=== PATIENT | female | born 1980 | race Caucasian/White ===

== ENCOUNTER 2016-11-19 08:25 | Emergency (ER) | payer OTHER ==
--- NOTE | 2016-11-19 08:43 | ERPHSYRPT ---
- History of Present Illness Time Seen by Provider: 11/19/16 08:30 Source: patient Exam Limitations: clinical condition Patient Subjective Stated Complaint: PT STATES SHE INJURED RIGHT SHOULDER SEVERAL YEARS AGO AND STATES OVER THE PAST FEW WEEKS HER SHOULDER HAS HURT WORSE. PT ALSO C/O PAIN TO LEFT WRIST AFTER FALLING ON 11/06/16. Triage Nursing Assessment: PT PINK, WARM, DRY. PT AMBULATED INTO ER WITHOUT DIFFICULTY. PT SPEACH IMPAIRED, ANSWERING QUESTIONS APPROPRIATELY. PT HAS OLD BRUISING TO HAND. NO DEFORMITY OR BRUISING NOTED TO RIGHT SHOULDER. Physician History: PATIENT WITH HISTORY OF SCHIZOPHRENIA COMPLAINS OF RIGHT CHRONIC SHOULDER PAIN FOR YEARS, INCREASING PAIN DISCOMFORT THE PAST 2 WEEKS, WORSE UPON MOTION. PATIENT ALSO FELL AND INJURED HER LEFT WRIST AND HAND 2 WEEKS AGO, HAS PAIN WITH SWELLING OVER BACK OF LEFT HAND. DENIES ASSOCIATED HEAD, NECK OR BACK INJURY. Occurred: other (WEEKS AGO) Method of Injury: fell Quality: constant Severity of Pain-Max: moderate Severity of Pain-Current: moderate Extremities Pain Location: shoulder: right, wrist: left, hand: left Modifying Factors: Improves With: movement Associated Symptoms: none Allergies/Adverse Reactions: No Known Drug Allergies Allergy (Unverified 11/19/16 08:37) Home Medications: Alprazolam 1 mg [Xanax 1 mg] 1 mg PO QID 07/18/16 [History] Paliperidone Palmitate [Invega Sustenna] 117 mg IM UD 07/18/16 [History] Fluticasone/Vilanterol [Breo Ellipta 200-25 Mcg INH] 1 each IH DAILY 11/19/16 [ History] Trazodone HCl 150 mg PO HS 11/19/16 [History] Hx Tetanus, Diphtheria Vaccination/Date Given: Yes (UP TO DATE) Hx Influenza Vaccination/Date Given: No Hx Pneumococcal Vaccination/Date Given: No Immunizations Up to Date: Yes - Review of Systems Constitutional: No Fever, No Chills Respiratory: No Cough, No Dyspnea Cardiac: No Chest Pain, No Edema, No Syncope Abdominal/Gastrointestinal: No Abdominal Pain, No Nausea, No Vomiting, No Diarrhea Genitourinary Symptoms: No Dysuria Musculoskeletal: Injury, Joint Pain, Joint Swelling, No Back Pain, No Neck Pain Skin: No Rash Neurological: No Dizziness, No Focal Weakness, No Sensory Changes Psychological: No Symptoms Endocrine: No Symptoms All Other Systems: Reviewed and Negative - Past Medical History Pertinent Past Medical History: Yes Neurological History: Other Respiratory History: Asthma Psycho-Social History: Anxiety, Depression, Other Other Medical History: BORDERLINE PERSONALITY DISORDER, SCHIZOPHRENIA, HEAD TRAUMA - Past Surgical History Past Surgical History: Yes Female Surgical History: Tubal Ligation Other Surgical History: dental extration - Social History Smoking Status: Current every day smoker How long have you smoked: 18 Exposure to second hand smoke: No Drug Use: none Patient Lives Alone: No - Female History Hx Last Menstrual Period: MAY 2016 - Nursing Vital Signs Nursing Vital Signs: Initial Vital Signs Temperature 97.9 F Temperature Source Oral Pulse Rate 70 Respiratory Rate 18 Blood Pressure [] 140/90 Pain Intensity 6 - Physical Exam General Appearance: alert Abdominal Exam: No guarding Back Exam: No vertebral tenderness Shoulder Exam: normal inspection, limited ROM, pain (THERE IS NO CREPITUS, ECCHYMOSIS OR DEFORMITY, TENDERNESS MID RIGHT CLAVICLE, NO CREPITUS), soft tissue tenderness Elbow/Forearm Exam: non-tender (THERE IS OLD SEFT MUTULATON SCARS MID FOREARMS BILATERAL) Wrist Exam: limited ROM, pain, soft tissue tenderness (TENDERNESS LEFT VOLAR WRIST, NO ABRASIONS OR ECCHYMOSIS) Hand Exam: soft tissue tenderness, swelling (THERE IS TENDERNESS, MID TO DISTAL 2ND TO 5TH METACARPALS WITH ECCHYMOSIS YELLOW DISCOLORATION) Neuro/Tendon Exam: normal sensation, normal motor functions Mental Status Exam: alert, oriented x 3, cooperative Skin Exam: normal color, warm, dry SpO2 Interpretation: normal SpO2: 98 - Radiology Exams Right Clavicle X-ray Interpretation: Discussed w/ radiologist, Negative, No Fracture Right Shoulder X-ray Interpretation: Discussed w/ radiologist, Negative, No Fracture Left Wrist X-ray Interpretation: Discussed w/ radiologist, Negative, No Fracture Left Hand X-ray Interpretation: Discussed w/ radiologist, Negative, No Fracture Ordered Tests: Active Orders 24 hr Category Date Time Status Sling Application STAT Care 11/19/16 09:19 Active Splint STAT Care 11/19/16 09:20 Active CLAVICLE Stat Exams 11/19/16 08:35 Completed HAND (MINIMUM 3 VIEWS) Stat Exams 11/19/16 08:35 Completed SHOULDER Stat Exams 11/19/16 08:36 Completed WRIST (MIN 3 VIEWS) Stat Exams 11/19/16 08:35 Completed - Progress Progress: pain not gone completely Progress Note: 11/19/16 08:50 PATIENT PROVIDED RIGHT ARM SLING AND TORADOL 10MG ORALLY Counseled pt/family regarding: diagnosis, need for follow-up, rad results - Departure Time of Disposition: 09:25 Departure Disposition: Home Clinical Impression: CHRONIC RIGHT SHOULDER PAIN, ACUTE LEFT HAND/WRIST STRAIN Condition: Stable Critical Care Time: No Referrals: ZEE REYES [Primary Care Provider] - Additional Instructions: WEAR RIGHT ARM SLING AND LEFT WRIST VELCRO SPLINT FOR 1 WEEK. TORADOL 10MG EVERY 6 HOURS NEEDED FOR PAIN. CONSULT YOUR PRIMARY CARE PHYSICIAN FOR FOLLOWUP AND REVIEW OF XRAY FINDINGS. Prescriptions: Ketorolac Tromethamine [Toradol] 10 mg PO Q6H PRN PRN #20 tablet PRN Reason: Pain
[2016-11-19 09:07] VITALS: O2SAT 98
--- NOTE | 2016-11-19 09:17 | XRAY ---
Indication: Pain following fall. Comparison: None 3 views of the left hand obtained. No bony, articular, or soft tissue abnormalities.
--- NOTE | 2016-11-19 09:17 | XRAY ---
Indication: Pain following fall. Comparison: None 2 views of the right clavicle demonstrates mild AC degenerative arthropathy with heterotopic ossification. No other bony, articular, or soft tissue abnormalities.
--- NOTE | 2016-11-19 09:18 | XRAY ---
Indication: Pain following fall. Comparison: None 3 views of the left wrist obtained. No bony, articular, or soft tissue abnormalities.
--- NOTE | 2016-11-19 09:21 | XRAY ---
Indication: Pain following fall. Comparison: None 3 views of the right shoulder demonstrates mild AC degenerative arthropathy. No other bony, articular, or soft tissue abnormalities.
[2016-11-19 09:32] VITALS: BP 138/82; PULSE 74
== END 2016-11-19 09:31 | disposition home or self-care (01) ==
LOC: ED 08:25
DX: M25.511 Pain in right shoulder (principal); S63.502A Unspecified sprain of left wrist, initial encounter; S63.92XA Sprain of unspecified part of left wrist and hand, initial encounter; W19.XXXA Unspecified fall, initial encounter
CPT/HCPCS: 73000; 73030; 73110; 73130; 99283; L3908

== ENCOUNTER 2017-06-04 10:14 | Emergency (ER) | payer MEDICAID, OTHER ==
[2017-06-04 10:29] VITALS: O2SAT 96
[2017-06-04] MEDS ORDERED: Sodium Chloride 0.9% 1000 ML 1,000 ML IV STA (10:29)
[2017-06-04] MEDS ORDERED: Hydromorphone 1 mg/ml Ampule IV ONE (10:34)
[2017-06-04] MEDS ORDERED: Zofran 4 MG/2 ML VIAL IV ONE (10:34)
--- NOTE | 2017-06-04 10:38 | ERPHSYRPT ---
- History of Present Illness Time Seen by Provider: 06/04/17 10:24 Historian: patient Patient Subjective Stated Complaint: pt states she began having right lower abdomen pain. states she feels like the pain is coming from her right ovary. currently on period. pt also states she became dizzy this morning and vomited x1. Triage Nursing Assessment: pt pink, warm, moist. pt ambulated into ER without difficulty. abdomen obese. bowel sounds present in all 4 quads. Physician History: CC: RLQ abd pain Hx: 36 y/o patient of Dr Colón. She started normal menses and has hx of BTL. She has RLQ abd pain. Pain severe. Associated with nausea and a cold sweat. Normal urination. No fever or chills. Pain is sharp in nature. Timing/Duration: today Allergies/Adverse Reactions: No Known Drug Allergies Allergy (Unverified 06/04/17 10:29) Home Medications: Paliperidone Palmitate [Invega Sustenna] 117 mg IM UD 07/18/16 [History] Clonazepam [Klonopin] 1 mg PO TID 06/04/17 [History] Divalproex Sodium [Depakote] 1,000 mg PO DAILY 06/04/17 [History] Hx Tetanus, Diphtheria Vaccination/Date Given: Yes (up top date) Hx Influenza Vaccination/Date Given: Yes Hx Pneumococcal Vaccination/Date Given: No Immunizations Up to Date: Yes - Review of Systems Constitutional: Malaise, No Fever, No Chills Eyes: No Symptoms Ears, Nose, & Throat: No Symptoms Respiratory: No Cough Cardiac: No Chest Pain Abdominal/Gastrointestinal: Abdominal Pain, Nausea, No Vomiting, No Diarrhea Genitourinary Symptoms: Vaginal Bleeding (menses), No Skin: No Rash Neurological: No Headache All Other Systems: Reviewed and Negative - Past Medical History Pertinent Past Medical History: Yes Neurological History: Other Respiratory History: Asthma Psycho-Social History: Anxiety, Depression, Other Other Medical History: BORDERLINE PERSONALITY DISORDER, SCHIZOPHRENIA, HEAD TRAUMA - Past Surgical History Past Surgical History: Yes Female Surgical History: Tubal Ligation Other Surgical History: dental extration - Social History Smoking Status: Current every day smoker How long have you smoked: 20 Exposure to second hand smoke: No Drug Use: none Patient Lives Alone: No - Female History Hx Last Menstrual Period: now - Nursing Vital Signs Nursing Vital Signs: Initial Vital Signs Temperature 97.6 F 08/15/17 10:22 Pulse Rate 93 H 06/04/17 10:22 Respiratory Rate 20 06/04/17 10:22 Blood Pressure 154/96 06/04/17 10:22 O2 Sat by Pulse Oximetry 96 06/04/17 10:22 Pain Scale Pain Intensity 0 - Physical Exam General Appearance: alert, obese, other (pleasant lady) Eye Exam: PERRL/EOMI Ears, Nose, Throat Exam: moist mucous membranes Neck Exam: normal inspection, non-tender, supple Respiratory Exam: normal breath sounds Cardiovascular Exam: regular rate/rhythm Gastrointestinal/Abdomen Exam: soft, tenderness (RLQ) Extremity Exam: normal range of motion Neurologic Exam: alert, oriented x 3, cooperative, sensation nml, No motor deficits Skin Exam: warm, dry, No rash SpO2 Interpretation: normal SpO2: 96 Oxygen Delivery: Room Air - Course Nursing assessment & vital signs reviewed: Yes - CT Exams abd/pelvis CT Interpretation: Tele-radiologist Report, No appendicitis, Other (gallstone, no acute) Ordered Tests: Active Orders 24 hr Category Date Time Status Cath for Specimen-Straight STAT Care 06/04/17 10:29 Active IV Insertion STAT Care 06/04/17 10:29 Active Orthostatic Vital Signs STAT Care 06/04/17 10:31 Active ABDOMEN AND PELVIS W CONTRAST [CT] Stat Exams 06/04/17 10:32 Completed CBC W DIFF Stat Lab 06/04/17 10:35 Completed CMP Stat Lab 06/04/17 10:35 Completed HCG QUALITATIVE,SERUM Stat Lab 06/04/17 10:35 Completed UA W/RFX UR CULTURE Stat Lab 06/04/17 10:29 Completed VALPROIC ACID (DEPAKOTE) Stat Lab 06/04/17 10:35 Completed Medication Summary Discontinued Medications Generic Name Dose Route Start Last Admin Trade Name Freq PRN Reason Stop Dose Admin Hydromorphone HCl 1 mg 06/04/17 10:34 06/04/17 10:53 Hydromorphone 1 Mg/Ml Ampule IV 06/04/17 10:35 1 mg STAT ONE Administration Hydromorphone HCl Confirm 06/04/17 10:44 Hydromorphone 1 Mg/Ml Ampule Administered 06/04/17 10:45 Dose 1 mg .ROUTE .STK-MED ONE Sodium Chloride 1,000 mls @ 999 mls/hr 06/04/17 10:29 06/04/17 10:53 Sodium Chloride 0.9% 1000 Ml IV 06/04/17 11:29 999 mls/hr .Q1H1M STA Administration Sodium Chloride Confirm 06/04/17 10:44 Sodium Chloride 0.9% 1000 Ml Administered 06/04/17 10:45 Dose 1,000 mls @ ud .ROUTE .STK-MED ONE Ondansetron HCl 4 mg 06/04/17 10:34 06/04/17 10:53 Zofran 4 Mg/2 Ml Vial IV 06/04/17 10:35 4 mg STAT ONE Administration Ondansetron HCl Confirm 06/04/17 10:43 Zofran 4 Mg/2 Ml Vial Administered 06/04/17 10:44 Dose 4 mg .ROUTE .STK-MED ONE Lab/Rad Data: Laboratory Result Diagrams 06/04/17 10:35 06/04/17 10:35 Laboratory Results 06/04/17 06/04/17 06/04/17 Range/Units 10:35 10:35 10:35 WBC 14.3 H (4.0-10.5) K/mm3 RBC 4.90 (4.1-5.4) M/mm3 Hgb 13.4 (12.0-16.0) gm/dl Hct 43.3 (35-47) % MCV 88.4 (78-100) fl MCH 27.3 (26-32) pg MCHC 30.9 L (32-36) g/dl RDW 17.0 H (11.5-14.0) % Plt Count 392 (150-450) K/mm3 MPV 8.7 (6-9.5) fl Gran % 74.0 H (36.0-66.0) % Lymphocytes % 18.7 L (24.0-44.0) % Monocytes % 5.5 (0.0-12.0) % Eosinophils % 1.3 (0.00-5.0) % Basophils % 0.5 (0.0-0.4) % Basophils # 0.07 (0-0.4) Sodium 140 (136-145) mEq/L Potassium 3.4 L (3.5-5.1) mEq/L Chloride 105 (98-107) mEq/L Carbon Dioxide 25.1 (21-32) mEq/L Anion Gap 13.1 (5-15) MEQ/L BUN 9 (9-20) mg/dL Creatinine 0.90 (0.55-1.30) mg/dl Estimated GFR > 60 ML/MIN Glucose 150 H (70-110) MG/DL Calcium 9.0 (8.5-10.1) mg/dL Total Bilirubin 0.30 (0.2-1.0) mg/dL AST 37 (15-37) U/L ALT 63 (12-78) U/L Alkaline Phosphatase 122 H (46-116) U/L Serum Total Protein 7.3 (6.4-8.2) gm/dL Albumin 3.5 (3.4-5.0) g/dL Serum , Qual NEGATIVE (Negative) Ur Collection Type Urine Color (YELLOW) Urine Appearance (CLEAR) Urine pH (5-6) Ur Specific [place] (1.005-1.025) Urine Protein (Negative) Urine Ketones (NEGATIVE) Urine Blood (0-5) Fig[place]/ul Urine Nitrite (NEGATIVE) Urine Bilirubin (NEGATIVE) Urine Urobilinogen (0-1) mg/dL Ur Leukocyte Esterase (NEGATIVE) Urine Glucose (NEGATIVE) mg/dL Valproic Acid < 3.0 L (50-100) UG/ML Specimen Received 06/04/17 Range/Units 10:29 WBC (4.0-10.5) K/mm3 RBC (4.1-5.4) M/mm3 Hgb (12.0-16.0) gm/dl Hct (35-47) % MCV (78-100) fl MCH (26-32) pg MCHC (32-36) g/dl RDW (11.5-14.0) % Plt Count (150-450) K/mm3 MPV (6-9.5) fl Gran % (36.0-66.0) % Lymphocytes % (24.0-44.0) % Monocytes % (0.0-12.0) % Eosinophils % (0.00-5.0) % Basophils % (0.0-0.4) % Basophils # (0-0.4) Sodium (136-145) mEq/L Potassium (3.5-5.1) mEq/L Chloride (98-107) mEq/L Carbon Dioxide (21-32) mEq/L Anion Gap (5-15) MEQ/L BUN (9-20) mg/dL Creatinine (0.55-1.30) mg/dl Estimated GFR ML/MIN Glucose (70-110) MG/DL Calcium (8.5-10.1) mg/dL Total Bilirubin (0.2-1.0) mg/dL AST (15-37) U/L ALT (12-78) U/L Alkaline Phosphatase (46-116) U/L Serum Total Protein (6.4-8.2) gm/dL Albumin (3.4-5.0) g/dL Serum , Qual (Negative) Ur Collection Type CATH Urine Color YELLOW (YELLOW) Urine Appearance CLEAR (CLEAR) Urine pH 5.0 (5-6) Ur Specific [place] 1.025 (1.005-1.025) Urine Protein NEGATIVE (Negative) Urine Ketones NEGATIVE (NEGATIVE) Urine Blood NEGATIVE (0-5) [place]/ul Urine Nitrite NEGATIVE (NEGATIVE) Urine Bilirubin NEGATIVE (NEGATIVE) Urine Urobilinogen NORMAL (0-1) mg/dL Ur Leukocyte Esterase NEGATIVE (NEGATIVE) Urine Glucose NEGATIVE (NEGATIVE) mg/dL Valproic Acid (50-100) UG/ML Specimen Received 06/04/17 1050 - Progress Progress Note: 06/04/17 10:[address] to rule out appendicitis. 06/04/17 12:41 Pain better. Likely pain is related to menses and ovarian. She was told about gallstone and low fat diet. She will follow up with Dr Colón. Counseled pt/family regarding: lab results, diagnosis, need for follow-up, rad results - Departure Time of Disposition: 12:42 Departure Disposition: Home Clinical Impression: RLQ abdominal pain, Gallstone Condition: Stable Critical Care Time: No Referrals: ALBERTO COLÓN [Primary Care Provider] - Instructions: Abdominal Pain-Adult, Gallstones, Fat-Restricted Diet Additional Instructions: Low fat diet. Return for fever, vomiting, worsened or changed pain or concerns. See Dr Colón this week for recheck. No driving today. Rx motrin. Prescriptions: Ibuprofen 600 mg PO Q6H PRN PRN #15 tablet PRN Reason: Pain
[2017-06-04] MEDS ORDERED: Zofran 4 MG/2 ML VIAL ONE (10:43)
[2017-06-04 10:44] LABS: BASOPHIL % 0.5 % (0.0-0.4); Eosinophil % 1.3 % (0.00-5.0); Lymphocytes % 18.7 % (24.0-44.0); Mean Cell Volume 88.4 fl (78-100); Mean Corpuscular Hemoglobin 27.3 pg (26-32); Mean Platelet Volume 8.7 fl (6-9.5); Monocytes % 5.5 % (0.0-12.0); Platelet Count 392 K/mm3 (150-450); White Blood Count 14.3 K/mm3 (4.0-10.5)
[2017-06-04] MEDS ORDERED: Hydromorphone 1 mg/ml Ampule ONE (10:44)
[2017-06-04] MEDS ORDERED: Sodium Chloride 0.9% 1000 ML 1,000 ML ONE (10:44)
[2017-06-04 11:13] LABS: ALBUMIN 3.5 g/dL (3.4-5.0); ALKALINE PHOSPHATASE 122 U/L (46-116); ANION GAP 13.1 MEQ/L (5-15); BLOOD UREA NITROGEN 9 mg/dL (9-20); CHLORIDE 105 mEq/L (98-107); Carbon Dioxide 25.1 mEq/L (21-32); Glucose 150 MG/DL (70-110); Potassium 3.4 mEq/L (3.5-5.1); SGOT/AST 37 U/L (15-37); SGPT/ALT 63 U/L (12-78); SODIUM 140 mEq/L (136-145); Total Protein 7.3 gm/dL (6.4-8.2)
[2017-06-04 11:20] LABS: ADD URINE CULTURE? NO (NO); Bilirubin NEGATIVE (NEGATIVE); Blood NEGATIVE Ery/ul (0-5); COMPLETE URINE MICROSCOPIC? NO; Collection Type CATH; Glucose NEGATIVE (NEGATIVE); Leukocyte Esterase NEGATIVE (NEGATIVE)
--- NOTE | 2017-06-04 12:36 | XRAY ---
Indication: Right lower abdomen/pelvic pain. Sweating and dizziness. Multiple contiguous axial images obtained through the abdomen and pelvis using 80 cc Isovue 370 contrast only. Comparison: None Lung bases demonstrates mild bibasilar dependent atelectasis and right lower lobe calcified granulomas. Tiny 2-3 mm peripheral right lower lobe noncalcified nodule probably granulomatous. Heart is not enlarged. Noncontrasted stomach and bowel loops appear nonobstructed. Normal appendix. No free fluid/air. 2.3 cm gallstone without features for cholecystitis or biliary distention. Fatty liver. Spleen is enlarged measuring 13 cm in greatest axial dimension. Remaining liver, pancreas, spleen, adrenal glands, kidneys, ureters, bladder, uterus, and aorta appear unremarkable. No pathologic retroperitoneal lymphadenopathy. Osseous structures intact. Impression: 1. Gallstone without features for cholecystitis or biliary distention. 2. Fatty liver and splenomegaly. 3. No acute intra-abdominal/pelvic abnormalities. 4. Right lower lobe calcified and noncalcified granulomas. CT DI 35.17
[2017-06-04 12:56] VITALS: BP 122/76; PULSE 78
== END 2017-06-04 12:54 | disposition home or self-care (01) ==
LOC: ED 10:14
DX: R10.31 Right lower quadrant pain (principal); K80.80 Other cholelithiasis without obstruction; R11.0 Nausea
CPT/HCPCS: 36000; 36415; 74177; 80053; 80164; 81002; 84703; 85025; 96360; 96374; 96375; 99284; J1170; J2405; P9612

== ENCOUNTER 2017-07-07 16:32 | Emergency (ER) | payer OTHER ==
[2017-07-07 16:44] VITALS: BP 165/99; O2SAT 97
[2017-07-07 17:07] LABS: BASOPHIL % 0.2 % (0.0-0.4); Eosinophil % 1.7 % (0.00-5.0); Granulocytes % 66.6 % (36.0-66.0); Lymphocytes % 24.9 % (24.0-44.0); Mean Cell Volume 87.9 fl (78-100); Mean Platelet Volume 9.4 fl (6-9.5); Monocytes % 6.6 % (0.0-12.0); Platelet Count 347 K/mm3 (150-450); Red Blood Count 4.89 M/mm3 (4.1-5.4); Red Cell Distribution Width 16.1 % (11.5-14.0); White Blood Count 15.1 K/mm3 (4.0-10.5)
--- NOTE | 2017-07-07 17:12 | ERPHSYRPT ---
- History of Present Illness Time Seen by Provider: 07/07/17 17:09 Source: patient Exam Limitations: no limitations Patient Subjective Stated Complaint: pt reports having verbal argument with boyfriend-the police told her to stop riding her bike-pt became angry et used a razor blade to cut right wrist-states she was not trying to kill herself was only acting out because she was mad-states that she has a hx of self cutting but usually does not go as deep Triage Nursing Assessment: pt pink warm et [id number] all questions appropriately-several superficial cuts noted with no bleeding-2 cuts noted with bleeding controlled police captain-pulse present et strong Physician History: pt reports having verbal argument with boyfriend-the police told her to stop riding her bike-pt became angry et used a razor blade to cut right wrist-states she was not trying to kill herself was only acting out because she was mad- states that she has a hx of self cutting but usually does not go as deep. tearful, agitated in ER Timing/Duration: today Context related to: spouse Suicidal thoughts: attempt Associated Symptoms: angry, agitated, depressed, frustrated Previous symptoms: same symptoms as today, [facility] ([facility]) Allergies/Adverse Reactions: No Known Drug Allergies Allergy (Verified 07/07/17 16:37) Home Medications: Paliperidone Palmitate [Invega Sustenna] 117 mg IM UD 07/18/16 [History] Clonazepam [Klonopin] 1 mg PO TID 06/04/17 [History] Divalproex Sodium [Depakote] 1,000 mg PO DAILY 06/04/17 [History] Fluticasone/Vilanterol [Breo Ellipta 100-25 Mcg INH] 1 each IH UD 07/07/17 [ History] Hx Tetanus, Diphtheria Vaccination/Date Given: Yes (up top date) Hx Influenza Vaccination/Date Given: No Hx Pneumococcal Vaccination/Date Given: No Immunizations Up to Date: Yes - Past Medical History Pertinent Past Medical History: Yes Neurological History: Other Respiratory History: Asthma Psycho-Social History: Anxiety, Depression, Other Other Medical History: BORDERLINE PERSONALITY DISORDER, SCHIZOPHRENIA, HEAD TRAUMA - Past Surgical History Past Surgical History: Yes Female Surgical History: Tubal Ligation Other Surgical History: dental extration - Social History Smoking Status: Current every day smoker How long have you smoked: 20 Exposure to second hand smoke: No Drug Use: none Patient Lives Alone: No - Female History Hx Last Menstrual Period: last week - Review of Systems Constitutional: No Fever, No Chills Eyes: No Symptoms Ears, Nose, & Throat: No Symptoms Respiratory: No Cough, No Dyspnea Cardiac: No Chest Pain, No Edema, No Syncope Abdominal/Gastrointestinal: No Abdominal Pain, No Nausea, No Vomiting, No Diarrhea Genitourinary Symptoms: No Dysuria Musculoskeletal: No Back Pain, No Neck Pain Skin: Other (multiple razor cut lowe on left forearm.), No Rash Neurological: No Dizziness, No Focal Weakness, No Sensory Changes Psychological: No Symptoms Endocrine: No Symptoms All Other Systems: Reviewed and Negative - Nursing Vital Signs Nursing Vital Signs: Initial Vital Signs Temperature 98.3 F 07/07/17 16:42 Pulse Rate 55 L 07/07/17 16:42 Respiratory Rate 18 07/07/17 16:42 Blood Pressure 165/99 07/07/17 16:42 O2 Sat by Pulse Oximetry 97 07/07/17 16:42 Pain Scale Pain Intensity 0 - Physical Exam General Appearance: no apparent distress Eyes, Ears, Nose, Throat Exam: normal ENT inspection, moist mucous membranes Neck Exam: normal inspection, non-tender, supple Respiratory Exam: normal breath sounds, lungs clear, No respiratory distress Cardiovascular Exam: regular rate/rhythm, No edema Gastrointestinal/Abdominal Exam: soft, No tenderness, No distention Extremities Exam: normal inspection, normal range of motion, No evidence of injury, No edema Current Suicidality: denies suicide plan Neurological Exam: alert, advertising intern II-XII nml as tested, oriented x 3 Appearance: disheveled Behavior/Eye Contact/Speech: alert & cooperative Thoughts/Hallucinations: no apparent hallucination Skin Exam: normal color, warm, dry, other (multiple superficial laceration on left forearm.), No rash SpO2: 97 Oxygen Delivery: Room Air - Course Nursing assessment & vital signs reviewed: Yes Ordered Tests: Active Orders 24 hr Category Date Time Status Wound Care STAT Care 07/07/17 17:12 Active ACETAMINOPHEN Stat Lab 07/07/17 17:00 Received CBC W DIFF Stat Lab 07/07/17 17:00 Completed CMP Stat Lab 07/07/17 17:00 Received ETHYL ALCOHOL Stat Lab 07/07/17 17:00 Received HCG,QUALITATIVE URINE Stat Lab 07/07/17 16:52 Uncollected SALICYLATE Stat Lab 07/07/17 17:00 Received UA W/RFX UR CULTURE Stat Lab 07/07/17 16:52 Ordered Urine Triage Profile Stat Lab 07/07/17 16:52 Ordered VALPROIC ACID (DEPAKOTE) Stat Lab 07/07/17 17:00 Received Lab/Rad Data: Laboratory Result Diagrams 07/07/17 17:00 Laboratory Results 07/07/17 Range/Units 17:00 WBC 15.1 H (4.0-10.5) K/mm3 RBC 4.89 (4.1-5.4) M/mm3 Hgb 13.2 (12.0-16.0) gm/dl Hct 43.0 (35-47) % MCV 87.9 (78-100) fl MCH 27.0 (26-32) pg MCHC 30.7 L (32-36) g/dl RDW 16.1 H (11.5-14.0) % Plt Count 347 (150-450) K/mm3 MPV 9.4 (6-9.5) fl Gran % 66.6 H (36.0-66.0) % Lymphocytes % 24.9 (24.0-44.0) % Monocytes % 6.6 (0.0-12.0) % Eosinophils % 1.7 (0.00-5.0) % Basophils % 0.2 (0.0-0.4) % Basophils # 0.03 (0-0.4) - Progress Progress: improved Progress Note: 07/07/17 17:25 Patient is much more calmer and she denies any suicidal or homicidal thoughts at all. She states that that she has done this so many times. She is going to stay with her friend and not with her boyfriend. I advise her that that me Contact [facility] and make sure that they can give an appointment. Patient agreed. We will call [facility] for further assistance. 07/07/17 17:[address] the [facility]. They advised patient to be seen either at [facility] what they were is much more convenient for her. Message given to the patient and she will go for her appointment tomorrow. Counseled pt/family regarding: lab results, diagnosis, need for follow-up, rad results - Departure Time of Disposition: 17:40 Departure Disposition: Home Clinical Impression: Self-mutilation, Bipolar 1 disorder, depressed Laceration of left forearm Qualifiers: Encounter type: initial encounter Qualified Code(s): S51.812A - Laceration without foreign body of left forearm, initial encounter Condition: Stable Critical Care Time: Yes Critical Care Time(excluding separately billable procedures): 30-74 minutes Referrals: ALBERTO COLÓN [Primary Care Provider] - Instructions: Bipolar Disorder, Care for a Laceration After Repair, Laceration Repair Steri-Strips Additional Instructions: Please follow-up at [facility] or [facility] tomorrow morning. If your symptoms get worse, come back to the emergency room.
[2017-07-07 17:31] LABS: ALBUMIN 3.4 g/dL (3.4-5.0); ALKALINE PHOSPHATASE 137 U/L (46-116); ANION GAP 13.5 MEQ/L (5-15); BLOOD UREA NITROGEN 10 mg/dL (9-20); CHLORIDE 110 mEq/L (98-107); Carbon Dioxide 25.3 mEq/L (21-32); ETHYL ALCOHOL < 0.010 % (0.00-0.01); Glucose 96 MG/DL (70-110); Potassium 3.7 mEq/L (3.5-5.1); SGOT/AST 33 U/L (15-37); SGPT/ALT 68 U/L (12-78); SODIUM 145 mEq/L (136-145); Total Protein 7.1 gm/dL (6.4-8.2)
[2017-07-07 17:37] LABS: ACETAMINOPHEN < 2.0 ug/ml (10-30)
[2017-07-07 17:54] VITALS: PULSE 78
== END 2017-07-07 17:54 | disposition home or self-care (01) ==
LOC: ED 16:32
DX: S51.812A Laceration without foreign body of left forearm, initial encounter (principal); Z91.5 Personal history of self-harm; F31.9 Bipolar disorder, unspecified; F32.9 Major depressive disorder, single episode, unspecified
CPT/HCPCS: 36415; 80053; 80164; 80307; 85025; 99284; G0481

== ENCOUNTER 2017-07-09 15:33 | Emergency (ER) | payer OTHER ==
[2017-07-09 15:56] LABS: BASOPHIL % 0.2 % (0.0-0.4); Eosinophil % 1.3 % (0.00-5.0); Granulocytes % 72.3 % (36.0-66.0); Lymphocytes % 19.7 % (24.0-44.0); Mean Cell Volume 89.2 fl (78-100); Mean Corpuscular Hemoglobin 27.2 pg (26-32); Mean Platelet Volume 8.8 fl (6-9.5); Monocytes % 6.5 % (0.0-12.0); Platelet Count 428 K/mm3 (150-450); Red Blood Count 4.93 M/mm3 (4.1-5.4); White Blood Count 15.2 K/mm3 (4.0-10.5)
[2017-07-09 16:01] LABS: Collection Type CATH
[2017-07-09 16:01] LABS: VBG BASE EXCESS 1.7 (-2.0-2.0); VBG HCO3- 28.6 meq/L (22-28); VBG HEMOGLOBIN 14.4; VBG O2 SATURATION 50.8 (95-100); VBG POTASSIUM 3.4 (3.5-5.1); VBG pH 7.34 (7.32-7.42)
[2017-07-09 16:02] LABS: Bilirubin NEGATIVE (NEGATIVE); COMPLETE URINE MICROSCOPIC? YES; Glucose NEGATIVE (NEGATIVE); Leukocyte Esterase NEGATIVE (NEGATIVE)
[2017-07-09 16:05] LABS: ADD URINE CULTURE? NO (NO); Bacteria FEW /HPF (NEGATIVE); Epithelial Cells FEW /HPF (FEW); Mucus MANY /HPF (NEGATIVE); WBC 0-2 /HPF (0-5)
[2017-07-09 16:35] LABS: ACETAMINOPHEN < 2.0 ug/ml (10-30); ALBUMIN 3.4 g/dL (3.4-5.0); ALKALINE PHOSPHATASE 134 U/L (46-116); ANION GAP 12.3 MEQ/L (5-15); BLOOD UREA NITROGEN 6 mg/dL (9-20); CHLORIDE 110 mEq/L (98-107); Carbon Dioxide 26.1 mEq/L (21-32); ETHYL ALCOHOL < 0.010 % (0.00-0.01); Glucose 130 MG/DL (70-110); Potassium 3.3 mEq/L (3.5-5.1); SGOT/AST 29 U/L (15-37); SGPT/ALT 56 U/L (12-78); SODIUM 145 mEq/L (136-145); Total Protein 7.2 gm/dL (6.4-8.2)
--- NOTE | 2017-07-09 16:39 | ERPHSYRPT ---
- History of Present Illness Time Seen by Provider: 07/09/17 15:41 Source: patient, other ([facility]) Patient Subjective Stated Complaint: "I'm having a bad day", pt states her normal sitting test carrier couldnt be with her today. Triage Nursing Assessment: pt ambulatory to ER acccompanied by mental health staff from [facility], per staff pt has a bed at [facility] but need "medically cleared" by [facility]. 7 horizontal cuts noted to medial left forearm, no active bleeding or sx of infection. pt admits these are self inflicted on 07/07/17 Physician History: CC: depression Hx: 36 y/o patient of [facility] with hx of depression. She lost her uncle and dad to . Her daughter went to live with her father. PT is depressed. She has cut herself in recent past. Denies ingestion or suicide attempt today. She was seen at and agrees for admission after medical evaluation. Last tetanus vaccine 4 years ago. Denies ingestion today. Severity of Symptoms-Max: moderate Severity of Symptoms-Current: moderate Allergies/Adverse Reactions: No Known Drug Allergies Allergy (Verified 07/07/17 16:37) Home Medications: Clonazepam [Klonopin] 1 mg PO TID 06/04/17 [History] Divalproex Sodium [Depakote] 1,000 mg PO DAILY 06/04/17 [History] Fluticasone/Vilanterol [Breo Ellipta 100-25 Mcg INH] 1 each IH UD 07/07/17 [ History] Furosemide 20 mg [Lasix 20 mg] 20 mg PO DAILY 07/09/17 [History] Ibuprofen 800 mg PO Q6HPRN PRN 07/09/17 [History] Potassium Chloride [Klor-Con M10] 10 meq PO DAILY 07/09/17 [History] Hx Tetanus, Diphtheria Vaccination/Date Given: Yes (< 10 years) Hx Influenza Vaccination/Date Given: No Hx Pneumococcal Vaccination/Date Given: No - Past Medical History Pertinent Past Medical History: Yes Respiratory History: Asthma Psycho-Social History: Anxiety, Depression, Other Other Medical History: BORDERLINE PERSONALITY DISORDER, SCHIZOPHRENIA, HEAD TRAUMA, neuropathy in feet - Past Surgical History Past Surgical History: Yes Female Surgical History: Tubal Ligation Other Surgical History: dental extration - Social History Smoking Status: Current every day smoker How long have you smoked: 20 Exposure to second hand smoke: No Drug Use: marijuana Patient Lives Alone: Yes - Review of Systems Constitutional: No Fever, No Chills Eyes: No Symptoms Ears, Nose, & Throat: No Symptoms Respiratory: Cough, No Dyspnea Cardiac: No Chest Pain Abdominal/Gastrointestinal: No Abdominal Pain, No Nausea, No Vomiting Genitourinary Symptoms: No Symptoms Musculoskeletal: No Symptoms Skin: No Symptoms Psychological: Depression, Suicidal Ideations, Emotional Lability, No Homicidal Ideations All Other Systems: Reviewed and Negative - Nursing Vital Signs Nursing Vital Signs: Initial Vital Signs Temperature 98.0 F 07/09/17 15:34 Pulse Rate 98 H 07/09/17 15:34 Respiratory Rate 16 07/09/17 15:34 Blood Pressure 109/55 07/09/17 15:34 O2 Sat by Pulse Oximetry 95 07/09/17 15:34 - Physical Exam General Appearance: alert, obese Eyes, Ears, Nose, Throat Exam: normal ENT inspection, moist mucous membranes Neck Exam: normal inspection, non-tender, supple Respiratory Exam: normal breath sounds, lungs clear, No respiratory distress Cardiovascular Exam: regular rate/rhythm, No murmur Gastrointestinal/Abdominal Exam: soft, No tenderness, No distention Neurological Exam: alert, calm (tearful) Appearance: appropriate appearance Behavior/Eye Contact/Speech: alert & cooperative Thoughts/Hallucinations: normal thought pattern Skin Exam: warm, dry, No rash SpO2 Interpretation: normal SpO2: 95 Oxygen Delivery: Room Air - Course Nursing assessment & vital signs reviewed: Yes EKG Interpreted by Me: RATE (94), Sinus Rhythm, NORMAL AXIS, NORMAL INTERVALS ( [id number]), NORMAL QRS, NORMAL ST-T - Radiology Exams cxr X-ray Interpretation: Reviewed by me (mild RLL infiltrate) Ordered Tests: Active Orders 24 hr Category Date Time Status Clean Catch Urine Specimen STAT Care 07/09/17 15:41 Active EKG-ER Only STAT Care 07/09/17 15:41 Active Pulse Oximetry (ED) STAT Care 07/09/17 16:40 Active CHEST 2 VIEWS (PA AND LAT) Stat Exams 07/09/17 16:40 Taken ACETAMINOPHEN Stat Lab 07/09/17 15:45 Completed CBC W DIFF Stat Lab 07/09/17 15:45 Completed CMP Stat Lab 07/09/17 15:45 Completed ETHYL ALCOHOL Stat Lab 07/09/17 15:45 Completed HCG QUALITATIVE,SERUM Stat Lab 07/09/17 15:45 Completed SALICYLATE Stat Lab 07/09/17 15:45 Completed TSH [TSH, 3RD Generation] Stat Lab 07/09/17 15:45 Completed UA W/ MICROSCOPIC Stat Lab 07/09/17 15:45 Completed Urine Triage Profile Stat Lab 07/09/17 15:45 Completed VALPROIC ACID (DEPAKOTE) Stat Lab 07/09/17 15:45 Completed VENOUS BLOOD GAS Urgent Lab 07/09/17 15:55 Completed Respiratory Nebulizer STAT RT 07/09/17 16:40 Completed Medication Summary Discontinued Medications Generic Name Dose Route Start Last Admin Trade Name Freq PRN Reason Stop Dose Admin Albuterol Sulfate 2.5 mg 07/09/17 16:40 07/09/17 17:00 Proventil 2.5 Mg/3 Ml Neb IH 07/09/17 16:41 2.5 mg STAT ONE Administration Albuterol Sulfate Confirm 07/09/17 17:08 Proventil 2.5 Mg/3 Ml Neb Administered 07/09/17 17:09 Dose 2.5 mg IH .STK-MED ONE Albuterol/Ipratropium Confirm 07/09/17 16:42 Duoneb 0.5-3 Mg/3 Ml Neb Administered 07/09/17 16:43 Dose 3 ml IH .STK-MED ONE Doxycycline Hyclate 100 mg 07/09/17 17:59 Vibramycin 100 Mg PO 07/09/17 18:00 STAT ONE Lab/Rad Data: Laboratory Result Diagrams 07/09/17 15:45 07/09/17 15:45 Laboratory Results 07/09/17 07/09/17 07/09/17 Range/Units 15:55 15:45 15:45 WBC 15.2 H (4.0-10.5) K/mm3 RBC 4.93 (4.1-5.4) M/mm3 Hgb 13.4 (12.0-16.0) gm/dl Hct 44.0 (35-47) % MCV 89.2 (78-100) fl MCH 27.2 (26-32) pg MCHC 30.5 L (32-36) g/dl RDW 16.0 H (11.5-14.0) % Plt Count 428 (150-450) K/mm3 MPV 8.8 (6-9.5) fl Gran % 72.3 H (36.0-66.0) % Lymphocytes % 19.7 L (24.0-44.0) % Monocytes % 6.5 (0.0-12.0) % Eosinophils % 1.3 (0.00-5.0) % Basophils % 0.2 (0.0-0.4) % Basophils # 0.03 (0-0.4) VBG pH 7.34 (7.32-7.42) VBG pCO2 at Pat Temp 53 (42-55) mm/Hg VBG pO2 at Pat Temp 22 L (25-40) mm/Hg VBG HCO3 28.6 H (22-28) meq/L VBG O2 Sat (Zully) 50.8 L (95-100) VBG Base Excess 1.7 (-2.0-2.0) VBG Hemoglobin 14.4 VBG Carboxyhemoglobin 7.0 H* (0.0-6.9) % T HGB POC Potassium 3.4 L (3.5-5.1) Sodium (136-145) mEq/L Potassium (3.5-5.1) mEq/L Chloride (98-107) mEq/L Carbon Dioxide (21-32) mEq/L Anion Gap (5-15) MEQ/L BUN (9-20) mg/dL Creatinine (0.55-1.30) mg/dl Estimated GFR ML/MIN Glucose (70-110) MG/DL Calcium (8.5-10.1) mg/dL Total Bilirubin (0.2-1.0) mg/dL AST (15-37) U/L ALT (12-78) U/L Alkaline Phosphatase (46-116) U/L Serum Total Protein (6.4-8.2) gm/dL Albumin (3.4-5.0) g/dL TSH 3rd Generation (0.358-3.740) mIU/L Serum , Qual NEGATIVE (Negative) Ur Collection Type Urine Color (YELLOW) Urine Appearance (CLEAR) Urine pH (5-6) Ur Specific [place] (1.005-1.025) Urine Protein (Negative) Urine Ketones (NEGATIVE) Urine Blood (0-5) [place]/ul Urine Nitrite (NEGATIVE) Urine Bilirubin (NEGATIVE) Urine Urobilinogen (0-1) mg/dL Ur Leukocyte Esterase (NEGATIVE) Urine Microscopic RBC (0-2) /HPF Urine Microscopic WBC (0-5) /HPF Ur Epithelial Cells (FEW) /HPF Urine Bacteria (NEGATIVE) /HPF Urine Mucus (NEGATIVE) /HPF Urine Glucose (NEGATIVE) mg/dL Salicylates (2.8-20.0) mg/dl Urine Opiates Level (NEGATIVE) Ur Methadone (NEGATIVE) Acetaminophen (10-30) ug/ml Urine Barbiturates (NEGATIVE) Valproic Acid (50-100) UG/ML Ur Phencyclidine (PCP) (NEGATIVE) Urine Amphetamine (NEGATIVE) U Benzodiazepine Level (NEGATIVE) Urine Cocaine (NEGATIVE) Urine Marijuana (THC) (NEGATIVE) Ethyl Alcohol (0.00-0.01) % Specimen Received 07/09/17 07/09/17 07/09/17 Range/Units 15:45 15:45 15:45 WBC (4.0-10.5) K/mm3 RBC (4.1-5.4) M/mm3 Hgb (12.0-16.0) gm/dl Hct (35-47) % MCV (78-100) fl MCH (26-32) pg MCHC (32-36) g/dl RDW (11.5-14.0) % Plt Count (150-450) K/mm3 MPV (6-9.5) fl Gran % (36.0-66.0) % Lymphocytes % (24.0-44.0) % Monocytes % (0.0-12.0) % Eosinophils % (0.00-5.0) % Basophils % (0.0-0.4) % Basophils # (0-0.4) VBG pH (7.32-7.42) VBG pCO2 at Pat Temp (42-55) mm/Hg VBG pO2 at Pat Temp (25-40) mm/Hg VBG HCO3 (22-28) meq/L VBG O2 Sat (Zully) (95-100) VBG Base Excess (-2.0-2.0) VBG Hemoglobin VBG Carboxyhemoglobin (0.0-6.9) % T HGB POC Potassium (3.5-5.1) Sodium 145 (136-145) mEq/L Potassium 3.3 L (3.5-5.1) mEq/L Chloride 110 H (98-107) mEq/L Carbon Dioxide 26.1 (21-32) mEq/L Anion Gap 12.3 (5-15) MEQ/L BUN 6 L (9-20) mg/dL Creatinine 0.87 (0.55-1.30) mg/dl Estimated GFR > 60 ML/MIN Glucose 130 H (70-110) MG/DL Calcium 9.4 (8.5-10.1) mg/dL Total Bilirubin 0.10 L (0.2-1.0) mg/dL AST 29 (15-37) U/L ALT 56 (12-78) U/L Alkaline Phosphatase 134 H (46-116) U/L Serum Total Protein 7.2 (6.4-8.2) gm/dL Albumin 3.4 (3.4-5.0) g/dL TSH 3rd Generation 1.787 (0.358-3.740) mIU/L Serum , Qual (Negative) Ur Collection Type Urine Color (YELLOW) Urine Appearance (CLEAR) Urine pH (5-6) Ur Specific [place] (1.005-1.025) Urine Protein (Negative) Urine Ketones (NEGATIVE) Urine Blood (0-5) [place]/ul Urine Nitrite (NEGATIVE) Urine Bilirubin (NEGATIVE) Urine Urobilinogen (0-1) mg/dL Ur Leukocyte Esterase (NEGATIVE) Urine Microscopic RBC (0-2) /HPF Urine Microscopic WBC (0-5) /HPF Ur Epithelial Cells (FEW) /HPF Urine Bacteria (NEGATIVE) /HPF Urine Mucus (NEGATIVE) /HPF Urine Glucose (NEGATIVE) mg/dL Salicylates 4.7 (2.8-20.0) mg/dl Urine Opiates Level NEG. (NEGATIVE) Ur Methadone NEG. (NEGATIVE) Acetaminophen < 2.0 L (10-30) ug/ml Urine Barbiturates NEG. (NEGATIVE) Valproic Acid < 3.0 L (50-100) UG/ML Ur Phencyclidine (PCP) NEG. (NEGATIVE) Urine Amphetamine NEG. (NEGATIVE) U Benzodiazepine Level POS. (NEGATIVE) Urine Cocaine NEG. (NEGATIVE) Urine Marijuana (THC) POS. (NEGATIVE) Ethyl Alcohol < 0.010 (0.00-0.01) % Specimen Received 07/09/17 Range/Units 15:45 WBC (4.0-10.5) K/mm3 RBC (4.1-5.4) M/mm3 Hgb (12.0-16.0) gm/dl Hct (35-47) % MCV (78-100) fl MCH (26-32) pg MCHC (32-36) g/dl RDW (11.5-14.0) % Plt Count (150-450) K/mm3 MPV (6-9.5) fl Gran % (36.0-66.0) % Lymphocytes % (24.0-44.0) % Monocytes % (0.0-12.0) % Eosinophils % (0.00-5.0) % Basophils % (0.0-0.4) % Basophils # (0-0.4) VBG pH (7.32-7.42) VBG pCO2 at Pat Temp (42-55) mm/Hg VBG pO2 at Pat Temp (25-40) mm/Hg VBG HCO3 (22-28) meq/L VBG O2 Sat (Zully) (95-100) VBG Base Excess (-2.0-2.0) VBG Hemoglobin VBG Carboxyhemoglobin (0.0-6.9) % T HGB POC Potassium (3.5-5.1) Sodium (136-145) mEq/L Potassium (3.5-5.1) mEq/L Chloride (98-107) mEq/L Carbon Dioxide (21-32) mEq/L Anion Gap (5-15) MEQ/L BUN (9-20) mg/dL Creatinine (0.55-1.30) mg/dl Estimated GFR ML/MIN Glucose (70-110) MG/DL Calcium (8.5-10.1) mg/dL Total Bilirubin (0.2-1.0) mg/dL AST (15-37) U/L ALT (12-78) U/L Alkaline Phosphatase (46-116) U/L Serum Total Protein (6.4-8.2) gm/dL Albumin (3.4-5.0) g/dL TSH 3rd Generation (0.358-3.740) mIU/L Serum , Qual (Negative) Ur Collection Type CATH Urine Color YELLOW (YELLOW) Urine Appearance HAZY (CLEAR) Urine pH 5.5 (5-6) Ur Specific [place] 1.025 (1.005-1.025) Urine Protein NEGATIVE (Negative) Urine Ketones NEGATIVE (NEGATIVE) Urine Blood 5-10 (0-5) [place]/ul Urine Nitrite NEGATIVE (NEGATIVE) Urine Bilirubin NEGATIVE (NEGATIVE) Urine Urobilinogen NORMAL (0-1) mg/dL Ur Leukocyte Esterase NEGATIVE (NEGATIVE) Urine Microscopic RBC 2-5 (0-2) /HPF Urine Microscopic WBC 0-2 (0-5) /HPF Ur Epithelial Cells FEW (FEW) /HPF Urine Bacteria FEW (NEGATIVE) /HPF Urine Mucus MANY (NEGATIVE) /HPF Urine Glucose NEGATIVE (NEGATIVE) mg/dL Salicylates (2.8-20.0) mg/dl Urine Opiates Level (NEGATIVE) Ur Methadone (NEGATIVE) Acetaminophen (10-30) ug/ml Urine Barbiturates (NEGATIVE) Valproic Acid (50-100) UG/ML Ur Phencyclidine (PCP) (NEGATIVE) Urine Amphetamine (NEGATIVE) U Benzodiazepine Level (NEGATIVE) Urine Cocaine (NEGATIVE) Urine Marijuana (THC) (NEGATIVE) Ethyl Alcohol (0.00-0.01) % Specimen Received 07/09/17 1545 - Progress Progress Note: 07/09/17 18:00 Covered bronchitis with doxycycline. SUPER[employer]OR [employer] Chitra Forde accepts transfer to . Pt stable for transfer to [facility]. Counseled pt/family regarding: lab results, diagnosis, need for follow-up, rad results, smoking cessation - Departure Time of Disposition: 18:02 Departure Disposition: Transfer ([facility]) Clinical Impression: Depression, Acute bronchitis Condition: Stable Critical Care Time: No Referrals: ALBERTO COLÓN [Primary Care Provider] -
[2017-07-09] MEDS ORDERED: PROVENTIL 2.5 MG/3 ML NEB IH ONE ×2 (16:40→17:08)
[2017-07-09] MEDS ORDERED: DUONEB 0.5-3 MG/3 ml Neb IH ONE (16:42)
[2017-07-09] MEDS ORDERED: Vibramycin 100 MG PO ONE (17:59)
[2017-07-09 18:03] VITALS: O2SAT 95
[2017-07-09] MEDS ORDERED: Vibramycin 100 MG ONE (18:18)
[2017-07-09 18:28] VITALS: BP 116/81; PULSE 86
--- NOTE | 2017-07-10 08:29 | XRAY ---
Indication: Cough. Comparison: July 18, 2016. PA/lateral chest remains clear with a few incidental calcified granulomas. Heart is not enlarged. Vascularity normal. Bony thorax intact. Impression: Stable nonacute chest. Again evidence for old granulomatous disease.
== END 2017-07-09 18:37 | disposition short-term general hospital (02) ==
LOC: ED 15:33
DX: F32.9 Major depressive disorder, single episode, unspecified (principal); J20.9 Acute bronchitis, unspecified; S51.812A Laceration without foreign body of left forearm, initial encounter; X83.8XXA Intentional self-harm by other specified means, initial encounter
CPT/HCPCS: 36415; 71020; 80053; 80164; 80307; 81000; 82805; 84443; 84703; 85025; 93005; 99285; G0481; A9270-GY

== ENCOUNTER 2018-01-21 15:54 | Emergency (ER) | payer OTHER ==
[2018-01-21 17:12] LABS: Granulocyte Absolute (ANC) 12.24 (1.4-6.9); Hematocrit 46.7 % (35-47); Hemoglobin 14.2 gm/dl (12.0-16.0); Mean Cell Volume 86.6 fl (78-100); Mean Corpuscular Hemoglobin 26.3 pg (26-32); Mean Corpuscular Hgb Concent. 30.4 g/dl (32-36); Mean Platelet Volume 9.1 fl (6-9.5); Platelet Count 486 K/mm3 (150-450); Red Blood Count 5.39 M/mm3 (4.1-5.4); Red Cell Distribution Width 16.9 % (11.5-14.0)
[2018-01-21 17:32] LABS: ALBUMIN 4.5 g/dL (3.5-5.0); ALKALINE PHOSPHATASE 149 U/L (38-126); ANION GAP 18.4 MEQ/L (5-15); BLOOD UREA NITROGEN 10 mg/dL (7-17); CHLORIDE 104 mmol/L (98-107); Calcium 9.9 mg/dL (8.4-10.2); Carbon Dioxide 25 mmol/L (22-30); Creatinine 1 0.74 mg/dL (0.52-1.04); Glucose 150 mg/dL (74-106); Potassium 3.9 mmol/L (3.5-5.1); SGOT/AST 70 U/L (14-36); SODIUM 144 mmol/L (137-145); Total Protein 8.4 g/dL (6.3-8.2)
[2018-01-21 17:38] LABS: SGPT/ALT 123 U/L (0-35)
[2018-01-21 17:49] VITALS: BP 128/70; PULSE 76; O2SAT 97
[2018-01-21 18:04] LABS: Appearance CLEAR (CLEAR); Bacteria FEW /HPF (NEGATIVE); Bilirubin NEGATIVE (NEGATIVE); Blood NEGATIVE Ery/ul (0-5); Epithelial Cells FEW /HPF (FEW); Glucose NEGATIVE (NEGATIVE); Ketones NEGATIVE (NEGATIVE); Leukocyte Esterase TRACE (NEGATIVE); Mucus MANY /HPF (NEGATIVE); Nitrite NEGATIVE (NEGATIVE); Protein,Urine Dip TRACE (Negative); Urobilinogen NORMAL mg/dL (0-1)
--- NOTE | 2018-01-21 18:05 | ERPHSYRPT ---
- History of Present Illness Time Seen by Provider: 01/21/18 16:33 Source: patient, family (mother) Patient Subjective Stated Complaint: Pt arrives to ER with c/o UTI stating was seen by bench machine operator stating had lab drawn last week for routine medication eval, found WBC elevated, ran U/A, found a UTI, was placed on oral abx and was later called to come to ER for IV abx. Triage Nursing Assessment: Pt speech is slurry with tachynea in the high 20's, diaphoretic and delayed responses which mother believes is d/t Haldol, Klonopin and other psych meds. Pt denies any urinary sx but mentions having bilateral flank pain yesterday that has since resloved today. Physician History: CC: abnl labs HX: 37 y/o patient of Dr Avery and PROFESSOR OF COMMUNICATION Zainab Brooks at [facility]. She had dysuria a few weeks ago and took azo. On 01-15 she had labs ordered thru [facility]. She had UTI so started an oral abtx. Today the culture was sent to [facility] and they called her and told her to come to the hospital as it was a resistant infection. She really has no current symptoms. No fever, chills, abd pain, dysuria, vomiting. No chills. She had prior BTL with recent LMP 1 week ago. ILL: Schizophrenia, borderline personality, asthma, tarsal tunnel. ALL: None Allergies/Adverse Reactions: No Known Drug Allergies Allergy (Verified 01/21/18 16:23) Home Medications: Clonazepam [Klonopin] 1 mg PO TID 06/04/17 [History] Fluticasone/Vilanterol [Breo Ellipta 100-25 Mcg INH] 1 each IH UD 07/07/17 [ History] Furosemide 20 mg [Lasix 20 mg] 20 mg PO DAILY 07/09/17 [History] Ibuprofen 800 mg PO Q6HPRN PRN 07/09/17 [History] Potassium Chloride [Klor-Con M10] 10 meq PO DAILY 07/09/17 [History] Albuterol Sulfate [Ventolin Hfa] 01/21/18 [History] Aripiprazole Lauroxil [Aristada] 01/21/18 [History] Benztropine Mesylate 01/21/18 [History] Haloperidol [Haloperidol] 01/21/18 [History] Hydroxyzine HCl [Hydroxyzine HCl] 01/21/18 [History] Metformin HCl [Metformin HCl] 01/21/18 [History] Hx Tetanus, Diphtheria Vaccination/Date Given: Yes Hx Influenza Vaccination/Date Given: Yes Hx Pneumococcal Vaccination/Date Given: Yes Immunizations Up to Date: Yes - Review of Systems Constitutional: Malaise, No Fever, No Chills Eyes: No Symptoms Ears, Nose, & Throat: No Symptoms Respiratory: No Cough Cardiac: No Chest Pain Abdominal/Gastrointestinal: No Abdominal Pain, No Nausea, No Vomiting Genitourinary Symptoms: No Dysuria, No Musculoskeletal: No Back Pain Skin: No Rash Neurological: No Headache All Other Systems: Reviewed and Negative - Past Medical History Pertinent Past Medical History: Yes Neurological History: Other Respiratory History: Asthma Psycho-Social History: Anxiety, Depression, Other Other Medical History: BORDERLINE PERSONALITY DISORDER, SCHIZOPHRENIA, HEAD TRAUMA, neuropathy in feet - Past Surgical History Past Surgical History: Yes Female Surgical History: Tubal Ligation Other Surgical History: dental extration - Social History Smoking Status: Current every day smoker How long have you smoked: 20 Exposure to second hand smoke: Yes Drug Use: none Patient Lives Alone: Yes - Female History Hx Last Menstrual Period: 1.5 weeks ago Hx Now: No - Nursing Vital Signs Nursing Vital Signs: Initial Vital Signs Temperature 98.1 F 01/21/18 16:11 Pulse Rate 81 01/21/18 16:11 Respiratory Rate 28 H 01/21/18 16:11 Blood Pressure 123/70 01/21/18 16:11 O2 Sat by Pulse Oximetry 98 01/21/18 16:11 Pain Scale Pain Intensity 4 - Physical Exam General Appearance: alert, obese Eye Exam: PERRL/EOMI Ears, Nose, Throat Exam: normal ENT inspection, moist mucous membranes Neck Exam: normal inspection, non-tender, supple Respiratory Exam: normal breath sounds Cardiovascular Exam: regular rate/rhythm Gastrointestinal/Abdomen Exam: soft, No tenderness, No distention Back Exam: normal inspection, No CVA tenderness Neurologic Exam: alert, oriented x 3, cooperative, sensation nml, No motor deficits Skin Exam: warm, dry, No rash SpO2 Interpretation: normal SpO2: 97 Oxygen Delivery: Room Air - Course Nursing assessment & vital signs reviewed: Yes Ordered Tests: Active Orders 24 hr Category Date Time Status IV Insertion STAT Care 01/21/18 17:01 Active cath [Cath for Specimen-Straight] STAT Care 01/21/18 16:57 Active CBC W DIFF Stat Lab 01/21/18 17:09 Completed CMP Stat Lab 01/21/18 17:09 Completed CULTURE,URINE Stat Lab 01/21/18 16:57 Ordered Manual Differential NC Stat Lab 01/21/18 17:09 Completed UA W/ MICROSCOPIC Stat Lab 01/21/18 17:25 Completed Lab/Rad Data: Laboratory Result Diagrams 01/21/18 17:09 01/21/18 17:09 Laboratory Results 01/21/18 01/21/18 01/21/18 Range/Units 17:25 17:09 17:09 WBC 18.0 H (4.0-10.5) K/mm3 RBC 5.39 (4.1-5.4) M/mm3 Hgb 14.2 (12.0-16.0) gm/dl Hct 46.7 (35-47) % MCV 86.6 (78-100) fl MCH 26.3 (26-32) pg MCHC 30.4 L (32-36) g/dl RDW 16.9 H (11.5-14.0) % Plt Count 486 H (150-450) K/mm3 MPV 9.1 (6-9.5) fl Absolute Granulocytes 12.24 H (1.4-6.9) Sodium 144 (137-145) mmol/L Potassium 3.9 (3.5-5.1) mmol/L Chloride 104 (98-107) mmol/L Carbon Dioxide 25 (22-30) mmol/L Anion Gap 18.4 H (5-15) MEQ/L BUN 10 (7-17) mg/dL Creatinine 0.74 (0.52-1.04) mg/dL Estimated GFR > 60.0 ML/MIN Glucose 150 H (74-106) mg/dL Calcium 9.9 (8.4-10.2) mg/dL Total Bilirubin 0.30 (0.2-1.3) mg/dL AST 70 H (14-36) U/L ALT 123 H (0-35) U/L Alkaline Phosphatase 149 H (38-126) U/L Serum Total Protein 8.4 H (6.3-8.2) g/dL Albumin 4.5 (3.5-5.0) g/dL Ur Collection Type CATH Urine Color YELLOW (YELLOW) Urine Appearance CLEAR (CLEAR) Urine pH 5.0 (5-6) Ur Specific [place] 1.020 (1.005-1.025) Urine Protein TRACE (Negative) Urine Ketones NEGATIVE (NEGATIVE) Urine Blood NEGATIVE (0-5) [place]/ul Urine Nitrite NEGATIVE (NEGATIVE) Urine Bilirubin NEGATIVE (NEGATIVE) Urine Urobilinogen NORMAL (0-1) mg/dL Ur Leukocyte Esterase TRACE (NEGATIVE) Urine Microscopic RBC 0-2 (0-2) /HPF Urine Microscopic WBC 5-10 (0-5) /HPF Ur Epithelial Cells FEW (FEW) /HPF Urine Bacteria FEW (NEGATIVE) /HPF Urine Mucus MANY (NEGATIVE) /HPF Urine Culture Reflexed YES (NO) Urine Glucose NEGATIVE (NEGATIVE) mg/dL Specimen Received 01-21-18 1800 - Progress Progress Note: 01/21/18 18:[address] Avery. She only had 10-20K CFU of E coli on voided specimen and has no UTI symptoms. WBC elevated. Will use po augmentin and recheck in office this week to review this urine culture today. Counseled pt/family regarding: lab results, diagnosis, need for follow-up - Departure Time of Disposition: 18:35 Departure Disposition: Home Clinical Impression: Bacteriuria, Leukocytosis Condition: Stable Critical Care Time: No Referrals: SAUL AVERY [Family Provider] - ALBERTO COLÓN [Primary Care Provider] - Instructions: Urinary Tract Infection, Adult (DC) Additional Instructions: See Dr Colón/Jacobo Saturday. Call or return for fever, vomiting, or concerns. Rx augmentin. Prescriptions: Amox Tr/Potass Clav. 875 mg [Augmentin 875-125 Tablet] 875 mg PO BID #14 tablet
[2018-01-21 23:52] LABS: Eosinophil 1 % (0.00-3.0); Lymphocytes 24 % (24-44); Monocyte 3 % (0.0-12.0); Neutrophils 72 % (36.0-66.0); Total Cells Counted 100
[2018-01-21 23:53] LABS: Platelet Estimate NORMAL (NORMAL)
== END 2018-01-21 18:50 | disposition home or self-care (01) ==
LOC: ED 15:54
DX: R82.71 Bacteriuria (principal); D72.829 Elevated white blood cell count, unspecified; Z79.899 Other long term (current) drug therapy
CPT/HCPCS: 36000; 36415; 80053; 81000; 85025; 87086; 99283; P9612

== ENCOUNTER 2018-04-12 13:55 | Emergency (ER) | payer OTHER ==
[2018-04-12 14:13] VITALS: O2SAT 95
[2018-04-12] MEDS ORDERED: BACIGUENT PACKET TP ONE (15:00)
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
[2018-04-12] MEDS ORDERED: BACIGUENT PACKET ONE (15:11)
[2018-04-12 15:26] LABS: BASOPHIL % 0.2 % (0.0-0.4); Basophil (Absolute #) 0.03 (0-0.4); Eosinophil % 1.5 % (0.00-5.0); Eosinophil (Absolute #) 0.24 (0-0.5); Granulocyte Absolute (ANC) 10.83 (1.4-6.9); Granulocytes % 65.5 % (36.0-66.0); Hematocrit 41.6 % (35-47); Lymphocyte (Absolute #) 4.36 (1.0-4.6); Lymphocytes % 26.4 % (24.0-44.0); Mean Cell Volume 83.4 fl (78-100); Mean Corpuscular Hemoglobin 26.1 pg (26-32); Mean Corpuscular Hgb Concent. 31.3 g/dl (32-36); Mean Platelet Volume 8.6 fl (6-9.5); Monocyte (Absolute #) 1.06 (0.0-1.3); Monocytes % 6.4 % (0.0-12.0); Platelet Count 387 K/mm3 (150-450); Red Blood Count 4.99 M/mm3 (4.1-5.4); Red Cell Distribution Width 18.3 % (11.5-14.0); White Blood Count 16.5 K/mm3 (4.0-10.5)
[2018-04-12 15:33] VITALS: BP 119/58; PULSE 89
[2018-04-12 15:41] LABS: ALKALINE PHOSPHATASE 138 U/L (38-126); ANION GAP 11.2 MEQ/L (5-15); BLOOD UREA NITROGEN 12 mg/dL (7-17); CHLORIDE 104 mmol/L (98-107); Calcium 9.2 mg/dL (8.4-10.2); Carbon Dioxide 29 mmol/L (22-30); Creatinine 1 0.83 mg/dL (0.52-1.04); Glucose 87 mg/dL (74-106); Potassium 3.8 mmol/L (3.5-5.1); SGOT/AST 34 U/L (14-36); SGPT/ALT 67 U/L (0-35); SODIUM 141 mmol/L (137-145); Total Protein 7.5 g/dL (6.3-8.2)
[2018-04-12 15:42] LABS: ACETAMINOPHEN < 10 ug/ml (10-30); ETHYL ALCOHOL < 10 mg/dL (0-10); SALICYLATE < 1.0 mg/dL (2-20)
[2018-04-12 16:12] LABS: Appearance HAZY (CLEAR)
[2018-04-12 16:13] LABS: Bilirubin NEGATIVE (NEGATIVE); Blood 250 Ery/ul (0-5); Glucose NEGATIVE (NEGATIVE); Ketones NEGATIVE (NEGATIVE); Leukocyte Esterase 1+ (NEGATIVE); Nitrite NEGATIVE (NEGATIVE); Protein,Urine Dip NEGATIVE (Negative); Urobilinogen NORMAL mg/dL (0-1)
[2018-04-12 16:15] LABS: Bacteria MODERATE /HPF (NEGATIVE); Epithelial Cells FEW /HPF (FEW)
[2018-04-12 16:20] LABS: Benzodiazepine,Urine POSITIVE (NEGATIVE); Cocaine,Urine NEGATIVE (NEGATIVE); Methadone,Urine NEGATIVE (NEGATIVE); Opiate,Urine NEGATIVE (NEGATIVE); PCP,Urine NEGATIVE (NEGATIVE); THC,Urine NEGATIVE (NEGATIVE)
[2018-04-12 16:24] LABS: Barbiturate,Urine NEGATIVE (NEGATIVE)
[2018-04-12 16:54] LABS: Amphetamine,Urine POSITIVE (NEGATIVE)
== END 2018-04-12 16:20 | disposition left against medical advice (07) ==
LOC: ED 13:55
DX: F41.9 Anxiety disorder, unspecified (principal); Z72.89 Other problems related to lifestyle; X78.9XXA Intentional self-harm by unspecified sharp object, initial encounter; Z79.899 Other long term (current) drug therapy
CPT/HCPCS: 36415; 80053; 80307; 81000; 85025; 87077; 87086; 87186; 90791; 93005; 99284; G0481; G0463; Q3014; A9270-GY; G0480

== ENCOUNTER 2018-04-12 16:29 | Emergency (ER) | payer OTHER ==
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
[2018-04-12 16:52] VITALS: BP 124/67; PULSE 93; O2SAT 96
== END 2018-04-12 17:26 | disposition left against medical advice (07) ==
LOC: ED 16:29
DX: F41.9 Anxiety disorder, unspecified (principal); Z91.5 Personal history of self-harm
CPT/HCPCS: 99284; G0463

== ENCOUNTER 2020-03-19 11:42 | Observation (INO) | payer OTHER ==
[2020-03-19] MEDS ORDERED: Sodium Chloride 0.9% 1000 ML 1,000 ML IV STA (12:27)
[2020-03-19 12:32] LABS: Absolute Neutrophil Ct (ANC) 11.07 (1.4-6.9); BASOPHIL % 0.2 % (0.0-0.4); Basophil (Absolute #) 0.04 (0-0.4); Eosinophil % 1.6 % (0.00-5.0); Eosinophil (Absolute #) 0.27 (0-0.5); Hematocrit 38.8 % (35-47); Hemoglobin 11.5 gm/dl (12.0-16.0); Lymphocytes % 27.3 % (24.0-44.0); Mean Cell Volume 78.7 fl (78-100); Mean Corpuscular Hemoglobin 23.3 pg (26-32); Mean Corpuscular Hgb Concent. 29.6 g/dl (32-36); Mean Platelet Volume 8.4 fl (7.5-11.0); Monocyte (Absolute #) 1.13 (0.0-1.3); Monocytes % 6.6 % (0.0-12.0); Neutrophil % 64.3 % (36.0-66.0); Platelet Count 564 K/mm3 (150-450); Red Blood Count 4.93 M/mm3 (4.1-5.4); Red Cell Distribution Width 21.5 % (11.5-14.0); White Blood Count 17.2 K/mm3 (4.0-10.5)
--- NOTE | 2020-03-19 12:33 | ERPHSYRPT ---
- History of Present Illness Time Seen by Provider: 03/19/20 12:28 Historian: patient Patient Subjective Stated Complaint: pt comes in with c/o epigastric and RUQ pain x 2 weeks. pt was seen at [facility] and was told she had "Gallstones and was septic" pt wanted to leave and was prescribed Augmentin 875mg BID for 10 days and Cipro 500mg BID for 10 days. pt states that "she had a bad break up and left her cipro at the house" so she has only been taking Augmentin. she is on day 7 on Augmentin. pt states that she comes in today with worsening pain. pt is unsure if she has had fever but is afebrile at this time. abd is obese, firm, and tender in RUQ and epigastric region. pt skin is pwd. pt states she's had n/v at home. Triage Nursing Assessment: see above Physician History: Patient is 39-year-old female was seen at [facility] emergency room 1 week ago. She was diagnosed with gallstone as well as infection in her gallbladder. She was advised to stay at the hospital for further care but as she does not have any insurance so she signed AGAINST MEDICAL ADVICE. She was started on Augmentin and cipro which she could only take augmentin as Cipro gave her allergic rash. She was told that she will need surgical intervention, but as again due to patient having no insurance she does not have any regular primary care physician as well as surgeon so she could not get any help. Today she came to the [facility] emergency room with the same complaint that includes a right upper quadrant abdominal pain. She denies any fever chills but complaining of some nausea and has loss of appetite. Timing/Duration: week(s) Quality: aching, cramping Abdominal Pain Onset Location: RUQ Allergies/Adverse Reactions: No Known Drug Allergies Allergy (Verified 03/19/20 12:06) Home Medications: clonazePAM [Klonopin] 1 mg PO TID 06/04/17 [History] Fluticasone/Vilanterol [Breo Ellipta 100-25 Mcg INH] 1 each IH UD 07/07/17 [ History] Albuterol Sulfate [Ventolin Hfa] 18 gm IN UD 01/21/18 [History] Aripiprazole Lauroxil [Aristada] 882 mg PO UD 01/21/18 [History] Benztropine Mesylate 1 mg PO DAILY 01/21/18 [History] Metformin HCl 500 mg PO DAILY 01/21/18 [History] haloperidoL [Haloperidol] 2 mg PO DAILY 01/21/18 [History] hydrOXYzine HCL [Hydroxyzine HCl] 50 mg PO DAILY 01/21/18 [History] Hx Tetanus, Diphtheria Vaccination/Date Given: Yes Hx Influenza Vaccination/Date Given: No Hx Pneumococcal Vaccination/Date Given: No Immunizations Up to Date: No Travel Risk - International Travel Have you traveled outside of the country in past 3 weeks: No Have you or anyone close to you been diagnosed with or: No Do your reside in a community with a known COVID-19 case?: Yes If Yes where:: [place] - Coronavirus Screening Has patient experienced Coronavirus symptoms: Yes Symptoms experienced: weakness - Review of Systems Constitutional: No Fever, No Chills Eyes: No Symptoms Ears, Nose, & Throat: No Symptoms Respiratory: No Cough, No Dyspnea Cardiac: No Chest Pain, No Edema, No Syncope Abdominal/Gastrointestinal: Abdominal Pain, Nausea, No Vomiting, No Diarrhea Genitourinary Symptoms: No Dysuria Musculoskeletal: No Back Pain, No Neck Pain Skin: No Rash Neurological: No Dizziness, No Focal Weakness, No Sensory Changes Psychological: No Symptoms Endocrine: No Symptoms All Other Systems: Reviewed and Negative - Past Medical History Pertinent Past Medical History: Yes Neurological History: Other Respiratory History: Asthma Psycho-Social History: Anxiety, Depression, Other Other Medical History: BORDERLINE PERSONALITY DISORDER, SCHIZOPHRENIA, HEAD TRAUMA, neuropathy in feet - Past Surgical History Past Surgical History: Yes Female Surgical History: Tubal Ligation Other Surgical History: dental extration - Social History Smoking Status: Current every day smoker How long have you smoked: 20 years Exposure to second hand smoke: Yes Drug Use: none Patient Lives Alone: No - Female History Hx Now: No - Nursing Vital Signs Nursing Vital Signs: Initial Vital Signs Temperature 97.6 F 03/19/20 11:42 Pulse Rate 87 03/19/20 11:42 Respiratory Rate 22 03/19/20 11:42 Blood Pressure 156/89 03/19/20 11:42 O2 Sat by Pulse Oximetry 98 03/19/20 11:42 Pain Scale Pain Intensity 5 - Physical Exam General Appearance: no apparent distress, alert Eye Exam: PERRL/EOMI, eyes nml inspection Ears, Nose, Throat Exam: normal ENT inspection, pharynx normal, moist mucous membranes Neck Exam: normal inspection, non-tender, supple, full range of motion Respiratory Exam: normal breath sounds, lungs clear, No respiratory distress Cardiovascular Exam: regular rate/rhythm, normal heart sounds Gastrointestinal/Abdomen Exam: soft, tenderness, No mass Back Exam: normal inspection, normal range of motion, No CVA tenderness, No vertebral tenderness Extremity Exam: normal inspection, normal range of motion, pelvis stable Neurologic Exam: alert, oriented x 3, cooperative, normal mood/affect, nml cerebellar function, sensation nml, No motor deficits Skin Exam: normal color, warm, dry SpO2: 98 - Course Nursing assessment & vital signs reviewed: Yes - CT Exams Abdomen/Pelvis CT Interpretation: Other ( done at [facility] showed cholelithiasis) Ordered Tests: Active Orders 24 hr Category Date Time Status NPO (ED) STAT Care 03/19/20 12:27 Active AMYLASE Stat Lab 03/19/20 12:27 Completed CBC W DIFF Stat Lab 03/19/20 12:27 Completed CMP Stat Lab 03/19/20 12:27 Completed LIPASE Stat Lab 03/19/20 12:27 Completed Lactic Acid Stat Lab 03/19/20 12:27 Completed UA W/RFX UR CULTURE Stat Lab 03/19/20 12:28 Completed Medication Summary Generic Name Dose Route Start Last Admin Trade Name Freq PRN Reason Stop Dose Admin Sodium Chloride 1,000 mls @ 999 mls/hr 03/19/20 12:27 03/19/20 12:36 Sodium Chloride 0.9% 1000 Ml IV 03/19/20 13:27 999 mls/hr .Q1H1M STA Administration Discontinued Medications Generic Name Dose Route Start Last Admin Trade Name Freq PRN Reason Stop Dose Admin Sodium Chloride Confirm 03/19/20 12:34 Sodium Chloride 0.9% 1000 Ml Administered 03/19/20 12:35 Dose 1,000 mls @ ud .ROUTE .STK-MED ONE Lab/Rad Data: Laboratory Result Diagrams 03/19/20 12:27 03/19/20 12:27 Laboratory Results 03/19/20 03/19/20 03/19/20 Range/Units 12:28 12:27 12:27 WBC (4.0-10.5) K/mm3 RBC (4.1-5.4) M/mm3 Hgb (12.0-16.0) gm/dl Hct (35-47) % MCV (78-100) fl MCH (26-32) pg MCHC (32-36) g/dl RDW (11.5-14.0) % Plt Count (150-450) K/mm3 MPV (7.5-11.0) fl Gran % (36.0-66.0) % Eos # (Auto) (0-0.5) Absolute Lymphs (auto) (1.0-4.6) Absolute Monos (auto) (0.0-1.3) Lymphocytes % (24.0-44.0) % Monocytes % (0.0-12.0) % Eosinophils % (0.00-5.0) % Basophils % (0.0-0.4) % Absolute Granulocytes (1.4-6.9) Basophils # (0-0.4) Sodium 139 (137-145) mmol/L Potassium 3.7 (3.5-5.1) mmol/L Chloride 106 (98-107) mmol/L Carbon Dioxide 26 (22-30) mmol/L Anion Gap 11.4 (5-15) MEQ/L BUN 7 (7-17) mg/dL Creatinine 0.48 L (0.52-1.04) mg/dL Estimated GFR > 60.0 ML/MIN Glucose 101 (74-106) mg/dL Lactic Acid 1.6 (0.4-2.0) Calcium 9.2 (8.4-10.2) mg/dL Total Bilirubin 0.20 (0.2-1.3) mg/dL AST 25 (14-36) U/L ALT 24 (0-35) U/L Alkaline Phosphatase 109 (38-126) U/L Serum Total Protein 7.5 (6.3-8.2) g/dL Albumin 4.0 (3.5-5.0) g/dL Amylase 64 (30-110) U/L Lipase 67 (23-300) U/L Urine Color YELLOW (YELLOW) Urine Appearance CLEAR (CLEAR) Urine pH 7.0 (5-6) Ur Specific [place] 1.012 (1.005-1.025) Urine Protein NEGATIVE (Negative) Urine Ketones NEGATIVE (NEGATIVE) Urine Blood NEGATIVE (0-5) [place]/ul Urine Nitrite NEGATIVE (NEGATIVE) Urine Bilirubin NEGATIVE (NEGATIVE) Urine Urobilinogen NEGATIVE (0-1) mg/dL Ur Leukocyte Esterase NEGATIVE (NEGATIVE) Urine WBC (Auto) NONE (0-5) /HPF Urine RBC (Auto) NONE (0-2) /HPF U Epithel Cells (Auto) RARE (FEW) /HPF Urine Bacteria (Auto) NONE (NEGATIVE) /HPF Urine Mucus (Auto) SLIGHT (NEGATIVE) /HPF Urine Culture Reflexed NO (NO) Urine Glucose NEGATIVE (NEGATIVE) mg/dL 03/19/20 Range/Units 12:27 WBC 17.2 H (4.0-10.5) K/mm3 RBC 4.93 (4.1-5.4) M/mm3 Hgb 11.5 L (12.0-16.0) gm/dl Hct 38.8 (35-47) % MCV 78.7 (78-100) fl MCH 23.3 L (26-32) pg MCHC 29.6 L (32-36) g/dl RDW 21.5 H (11.5-14.0) % Plt Count 564 H (150-450) K/mm3 MPV 8.4 (7.5-11.0) fl Gran % 64.3 (36.0-66.0) % Eos # (Auto) 0.27 (0-0.5) Absolute Lymphs (auto) 4.70 H (1.0-4.6) Absolute Monos (auto) 1.13 (0.0-1.3) Lymphocytes % 27.3 (24.0-44.0) % Monocytes % 6.6 (0.0-12.0) % Eosinophils % 1.6 (0.00-5.0) % Basophils % 0.2 (0.0-0.4) % Absolute Granulocytes 11.07 H (1.4-6.9) Basophils # 0.04 (0-0.4) Sodium (137-145) mmol/L Potassium (3.5-5.1) mmol/L Chloride (98-107) mmol/L Carbon Dioxide (22-30) mmol/L Anion Gap (5-15) MEQ/L BUN (7-17) mg/dL Creatinine (0.52-1.04) mg/dL Estimated GFR ML/MIN Glucose (74-106) mg/dL Lactic Acid (0.4-2.0) Calcium (8.4-10.2) mg/dL Total Bilirubin (0.2-1.3) mg/dL AST (14-36) U/L ALT (0-35) U/L Alkaline Phosphatase (38-126) U/L Serum Total Protein (6.3-8.2) g/dL Albumin (3.5-5.0) g/dL Amylase (30-110) U/L Lipase (23-300) U/L Urine Color (YELLOW) Urine Appearance (CLEAR) Urine pH (5-6) Ur Specific [place] (1.005-1.025) Urine Protein (Negative) Urine Ketones (NEGATIVE) Urine Blood (0-5) [place]/ul Urine Nitrite (NEGATIVE) Urine Bilirubin (NEGATIVE) Urine Urobilinogen (0-1) mg/dL Ur Leukocyte Esterase (NEGATIVE) Urine WBC (Auto) (0-5) /HPF Urine RBC (Auto) (0-2) /HPF U Epithel Cells (Auto) (FEW) /HPF Urine Bacteria (Auto) (NEGATIVE) /HPF Urine Mucus (Auto) (NEGATIVE) /HPF Urine Culture Reflexed (NO) Urine Glucose (NEGATIVE) mg/dL - Progress Progress: unchanged, pain not gone completely Discussed with Dr.: Marly Durham Will see patient in: hospital (observation) Counseled pt/family regarding: lab results, diagnosis, need for follow-up, rad results - Departure Departure Disposition: Observation Clinical Impression: Gallstone Qualifiers: Cholecystitis presence: with cholecystitis Cholecystitis acuity: acute and chronic Biliary obstruction: without biliary obstruction Qualified Code(s): K80.12 - Calculus of gallbladder with acute and chronic cholecystitis without obstruction Condition: Stable Critical Care Time: Yes Critical Care Time(excluding separately billable procedures): Critical 30-74 mins Referrals: ALBERTO COLÓN [Primary Care Provider] -
[2020-03-19] MEDS ORDERED: Sodium Chloride 0.9% 1000 ML 1,000 ML ONE (12:34)
[2020-03-19 12:39] LABS: ALKALINE PHOSPHATASE 109 U/L (38-126); AMYLASE 64 U/L (30-110); ANION GAP 11.4 MEQ/L (5-15); BLOOD UREA NITROGEN 7 mg/dL (7-17); CHLORIDE 106 mmol/L (98-107); Calcium 9.2 mg/dL (8.4-10.2); Carbon Dioxide 26 mmol/L (22-30); Creatinine 1 0.48 mg/dL (0.52-1.04); Glucose 101 mg/dL (74-106); LIPASE 67 U/L (23-300); Potassium 3.7 mmol/L (3.5-5.1); SGOT/AST 25 U/L (14-36); SGPT/ALT 24 U/L (0-35); SODIUM 139 mmol/L (137-145); Total Protein 7.5 g/dL (6.3-8.2)
[2020-03-19 12:49] LABS: Appearance CLEAR (CLEAR); Bilirubin NEGATIVE (NEGATIVE); Blood NEGATIVE Ery/ul (0-5); Epithelial Cells RARE /HPF (FEW); Glucose NEGATIVE (NEGATIVE); Ketones NEGATIVE (NEGATIVE); Leukocyte Esterase NEGATIVE (NEGATIVE); Mucus SLIGHT /HPF (NEGATIVE); Nitrite NEGATIVE (NEGATIVE); Protein,Urine Dip NEGATIVE (Negative); Specific Gravity 1.012 (1.005-1.025); Urobilinogen NEGATIVE mg/dL (0-1)
[2020-03-19] MEDS ORDERED: MORPHINE SULFATE 2 MG INJ IV PRN ×2 (13:44→18:19)
[2020-03-19] MEDS ORDERED: Sodium Chloride 0.9% 1000 ML 1,000 ML IV SCH (13:44)
[2020-03-19 14:16] VITALS: BP 129/60
[2020-03-19] MEDS ORDERED: VENTOLIN COMMON CANISTER IH PRN (14:42)
[2020-03-19] MEDS ORDERED: ARIPIPRAZOLE LAUROXIL 882 MG PO SCH (14:45)
[2020-03-19] MEDS ORDERED: Ventolin Hfa MDI IH SCH (14:45)
[2020-03-19] MEDS ORDERED: KLONOPIN PO SCH (15:00)
[2020-03-19] MEDS ORDERED: NON-FORMULARY ITEM (Clonazepam [Klonopin] 1 MG) PO SCH (15:00)
[2020-03-19] MEDS ORDERED: Reglan 10 MG/2 ML IV SCH (15:15)
[2020-03-19] MEDS ORDERED: MEDICATION INTERVENTION MC SCH (15:15)
[2020-03-19] MEDS ORDERED: Pepcid 20 MG VIAL IV SCH ×2 (15:15→22:00)
[2020-03-19] MEDS ORDERED: Lactated Ringers 1,000 ML IV SCH (15:15)
[2020-03-19] MEDS ORDERED: SOD CITRATE-CITRIC ACID SOLN PO ONE (15:15)
[2020-03-19] MEDS ORDERED: PROVENTIL 2.5 MG/3 ML NEB IH ONE ×2 (15:18→15:24)
[2020-03-19 15:33] LABS: INR 1.03 (0.8-3.0); PROTIME 11.6 SECONDS (9.95-12.35)
[2020-03-19] MEDS ORDERED: Zemuron 100 MG/10 ML ONE (15:49)
[2020-03-19] MEDS ORDERED: DIPRIVAN 200 MG/20 ML IV ONE (15:49)
[2020-03-19] MEDS ORDERED: Decadron 4 MG INJ ONE (15:49)
[2020-03-19] MEDS ORDERED: Zofran 4 MG/2 ML VIAL ONE (15:49)
[2020-03-19] MEDS ORDERED: SUBLIMAZE 100 MCG/2 ML ONE ×3 (15:49→17:35)
[2020-03-19] MEDS ORDERED: TORAdol 30 mg Injection ONE (15:49)
[2020-03-19] MEDS ORDERED: BRIDION 200MG/2ML IV ONE (15:49)
[2020-03-19] MEDS ORDERED: Xylocaine-Mpf 2% 5 Ml Vial ONE (15:49)
[2020-03-19] MEDS ORDERED: Quelicin Fliptop 200 MG/10 ML ONE (15:49)
[2020-03-19] MEDS ORDERED: Ketamine HCl 50 MG/ML ONE (15:56)
[2020-03-19] MEDS ORDERED: MEFOXIN 2 GM PREMIX** 2 GM/50 ML ML IV SCH (16:00)
[2020-03-19] MEDS ORDERED: Lactated Ringers 1,000 ML IV ONE (16:32)
[2020-03-19] MEDS ORDERED: Sensorcaine 0.25% 10 ML ONE (16:32)
[2020-03-19] MEDS ORDERED: DILAUDID 2 MG INJECTION ONE (17:35)
[2020-03-19] MEDS ORDERED: Unasyn 3GM / NaCl 100ML 3 GM/100 ML IVPB IV SCH (18:00)
[2020-03-19] MEDS ORDERED: NORCO 5/325 MG PO PRN (18:17)
[2020-03-19] MEDS ORDERED: Zofran 4 MG/2 ML VIAL IV PRN (18:18)
[2020-03-19] MEDS ORDERED: Advair Hfa 115/21 Common canister IH SCH (19:00)
[2020-03-19] MEDS ORDERED: VENTOLIN COMMON CANISTER IH SCH (19:00)
[2020-03-19] MEDS ORDERED: Nicoderm CQ 21 MG TOP SCH (20:00)
[2020-03-19 20:11] VITALS: PULSE 77; O2SAT 96
[2020-03-20] MEDS ORDERED: NON-FORMULARY ITEM (Fluticasone/Vilanterol [Breo Ellipta 100-25 Mcg Inh] 1 EACH) IH SCH (10:00)
[2020-03-20] MEDS ORDERED: HALDOL 1 MG PO SCH (10:00)
[2020-03-20] MEDS ORDERED: COGENTIN 0.5 MG PO SCH (10:00)
[2020-03-20] MEDS ORDERED: HALOPERIDOL 2 MG PO SCH (10:00)
--- NOTE | 2020-03-21 10:50 | CONS ---
CONSULT DATE: 03/19/2020 HISTORY: A 39 year-old overweight female has two week history of right upper quadrant and epigastric pain. She had been to [facility] twice who felt she had gallstones. She had been recommended to stay there but she left. She is taking some Augmentin. She had some worsening pain, some nausea, some vomiting. PAST MEDICAL HISTORY: Borderline personality disorder. She had some head trauma in the past, some neuropathy in her feet, some anxiety and depression, some asthma, chronic obstructive pulmonary disease and obesity in the past. PAST SURGICAL HISTORY: Tubal in the past. Tonsillectomy in the past. Dental work in the past. MEDICATIONS: Clonazepam, Breo Ellipta, Ventolin HFA, Aristada, benztropine, Metformin, haloperidol, hydroxyzine. ALLERGIES: NKDA. FAMILY HISTORY: Negative in regards to this problem. SOCIAL HISTORY: Pack per day smoker. Denies alcohol abuse. REVIEW OF SYSTEMS: Fourteen systems reviewed pertinent for the abdominal pain, some nausea and vomiting. Recurrent hospital visits. Otherwise negative or noncontributory as noted above. She has multiple tattoo's. LAB DATA AND TESTS: White count 17, hemoglobin 11.5, PLT 564,000. Bilirubin, alkaline phosphatase, AST and ALT all within normal limits. Amylase and lipase normal. Lactic acid is normal. PHYSICAL EXAMINATION: GENERAL: No acute distress. HEENT: Sclera nonicteric. NECK: No JVD. CHEST: Equal excursion, nonlabored breathing. CVS: Regular rhythm and pulse. ABDOMEN: Obese, soft, some tenderness in epigastrium right upper quadrant. No peritoneal signs. EXTREMITIES: She has some scrapes on her skin, multiple tattoos on her skin. No cyanosis. NEURO: Alert, oriented. PSYCH: Appropriate mood and affect. LAB DATA AND TESTS: CT chest showed cholelithiasis, hepatic steatosis, splenomegaly on a CT scan done on 03/12/2020 at [facility]. IMPRESSION: Acute exacerbation of chronic cholecystitis, cholelithiasis. I feel the patient will benefit from cholecystectomy. Risks and benefits explained in detail but not limited to bleeding or infection, risk of trocar injury or hernia, risk of bowel, bladder, blood vessel injury, risk of bile leak, bile duct injury, retained stone or sludge possibly requiring further procedure either open or ERCP, general risk of anesthesia, deep venous thrombosis, pulmonary embolism, pneumonia. Perioperative risk of aches, pains, bloating, constipation and/or loose stool possibly chronic in nature. Possibility for need to convert to open procedure, longer hospital stay with increased risk of hernia or wound complication, aches and pains. Possibility this procedure may not improve her symptoms. She may need further work up and/or testing, endoscopy or other studies or procedures. She understands and agrees to the planned procedure, will proceed with laparoscopic cholecystectomy possible open when OR time available.
--- NOTE | 2020-03-21 11:13 | OP ---
SURGERY DATE/TIME: 03/19/2020 1558 PREOPERATIVE DIAGNOSIS: Acute exacerbation cholelithiasis, cholecystitis, history of chronic cholecystitis, intractable pain, third trip to the emergency department. POSTOPERATIVE DIAGNOSIS: Acute exacerbation cholelithiasis, cholecystitis, history of chronic cholecystitis, intractable pain, third trip to the emergency department. PROCEDURE: Laparoscopic cholecystectomy. SURGEON: Dr. Romulo Hernández. ANESTHESIA: General. ESTIMATED BLOOD LOSS: Minimal. INDICATIONS: As noted above. Risks and benefits explained in detail but not limited to and consent obtained. DESCRIPTION OF PROCEDURE AND FINDINGS: The patient was taken to the operating room. General anesthesia induced. Abdomen prepped and draped in the usual sterile fashion. After official time out and no disagreement with planned procedure, transverse incision made at the supraumbilical area. Fascia grasped and pulled upward. Veress needle inserted and tested with saline. Pneumoperitoneum accomplished insufflating opening pressure of 0-15. Two 5 mm right upper quadrant ports and 11 mm epigastric port. There is no evidence of any intra-abdominal injury secondary to trocar insertion. Gallbladder chronically inflamed. Acute on chronic inflammatory reaction. Grasped retracted over the edge of the liver dissection carried posterior, lateral to anterior fashion. Slowly and carefully cystic duct and infundibular area skeletonized until the critical view obtained both anteriorly and posteriorly. Once this was accomplished cystic duct and cystic artery clipped x3 and divided in the usual fashion. Gallbladder slowly and carefully dissected free from its dense attachment to liver bed, clipping additional oozing side branches off the cystic artery directly on the gallbladder wall as necessary. Just prior to releasing from final attachments to the anterior edge of the liver, the liver bed re-inspected. Clips noted to be in place cystic duct and cystic artery stumps. No signs of any active bleeding or bile leakage. It was felt there was no benefit from drain placement. Gallbladder released from final attachments. As the original bag provided by the hospital was dysfunctional and required waiting some time for a new bag to be available. Once this was available the bag was carefully inserted and the gallbladder placed in it, pulled up into epigastrium. It was necessary to enlarge the fascia slightly as well as enlarge skin incision given the large stone. It was able to be pulled free and passed off. Bag broke outside the abdomen not inside the abdomen. At this point copious amount of irrigation accomplished lateral to the liver and subhepatic space irrigating until clear. Liver bed re-inspected. Clips noted in place in cystic duct and cystic artery stump. No signs of any active bleeding or bile leakage. Fascial defect closed with figure-of-8 with puncture closure device and #1 Vicryl. Pneumoperitoneum decompressed. The wound irrigated out. Skin incision closed with 4-0 Vicryl. 0.25% Marcaine local injected along the skin incision fascial defect. The patient tolerated the procedure well. There were no immediate complications. There was no family available to discuss the findings with out in the waiting area.
== END 2020-03-19 19:45 | disposition left against medical advice (07) ==
LOC: ED 11:42 → ICU 13:35 → MED SURG 17:06
PROVIDERS: ADMIT Family Medicine; ATTEND Family Medicine
DX: K80.00 Calculus of gallbladder with acute cholecystitis without obstruction (principal); J44.9 Chronic obstructive pulmonary disease, unspecified; J45.909 Unspecified asthma, uncomplicated; Z79.899 Other long term (current) drug therapy
CPT/HCPCS: 36415; 47562; 80053; 81001; 81025; 82150; 83605; 83690; 85025; 85610; 94640; 94760; 96360; 99285; 99291; G0378; 88304; 99140; J0295; J0330; J0694; J1100; J1170; J1885; J2270; J2405; J2704; J3010; J7609; A9270-GY

== ENCOUNTER 2021-05-01 15:59 | Observation (INO) | payer OTHER ==
[2021-05-01 16:38] LABS: Hematocrit 49.6 % (35-47); Hemoglobin 15.2 gm/dl (12.0-16.0); Mean Cell Volume 83.9 fl (78-100); Mean Corpuscular Hemoglobin 25.7 pg (26-32); Mean Corpuscular Hgb Concent. 30.6 g/dl (32-36); Mean Platelet Volume 8.8 fl (7.5-11.0); Platelet Count 426 K/mm3 (150-450); Red Blood Count 5.91 M/mm3 (4.1-5.4); Red Cell Distribution Width 20.6 % (11.5-14.0); White Blood Count 15.1 K/mm3 (4.0-10.5)
[2021-05-01 17:05] LABS: ALBUMIN 4.5 g/dL (3.5-5.0); ALKALINE PHOSPHATASE 133 U/L (38-126); BLOOD UREA NITROGEN 13 mg/dL (7-17); CHLORIDE 102 mmol/L (98-107); Calcium 10.3 mg/dL (8.4-10.2); Carbon Dioxide 23 mmol/L (22-30); Creatinine 1 0.74 mg/dL (0.52-1.04); EST GLOMERULAR FILTRATION RATE > 60.0 ML/MIN; Glucose 124 mg/dL (74-106); MAGNESIUM 2.1 mg/dL (1.6-2.3); NT PRO BNP 218 pg/mL (0-450); Potassium 3.7 mmol/L (3.5-5.1); SGOT/AST 82 U/L (14-36); SGPT/ALT 149 U/L (0-35); SODIUM 140 mmol/L (137-145); Total Protein 7.7 g/dL (6.3-8.2)
[2021-05-01 17:07] LABS: Appearance CLOUDY (CLEAR); Bacteria RARE /HPF (NEGATIVE); Bilirubin SMALL (NEGATIVE); Blood NEGATIVE Ery/ul (0-5); Epithelial Cells PACKED /HPF (FEW); Glucose NEGATIVE (NEGATIVE); Hyaline Casts >50 /LPF (0-2); Ketones TRACE (NEGATIVE); Leukocyte Esterase NEGATIVE (NEGATIVE); Mucus MANY /HPF (NEGATIVE); Nitrite NEGATIVE (NEGATIVE); Protein,Urine Dip 100 (Negative); RBC 0-2 /HPF (0-2); Specific Gravity 1.027 (1.005-1.025); Urobilinogen 2 mg/dL (0-1); WBC 0-2 /HPF (0-5)
[2021-05-01 17:11] LABS: TROPONIN 0.055 ng/mL (0.000-0.034)
[2021-05-01] MEDS ORDERED: PROVENTIL 2.5 MG/3 ML NEB IH ONE ×2 (17:34→17:43)
--- NOTE | 2021-05-01 17:37 | ERPHSYRPT ---
- History of Present Illness Time Seen by Provider: 05/01/21 16:30 Source: patient Exam Limitations: no limitations Patient Subjective Stated Complaint: pt sent from [facility] for sob,fast heart rate. pt states she has been ill for 2 weeks. denies fever Triage Nursing Assessment: pt alert arrived per wc with face mask in place, skin cool, moist,pink, abd soft, no edema noted Physician History: Patient is a 40-year-old female presents to our ED as a quick care referral for evaluation of shortness of breath. Patient states she has been feeling ill for approximately 2 weeks. Patient shortness of breath progressively worse over the past couple days. Patient arrived on facemask. Patient states her legs were swollen just yesterday but today there is no pitting edema. Patient is currently a smoker. No chest pain. Patient is audibly wheezing. She admits to history of asthma. Patient also has CHF but does not know her ejection fraction. Symptoms are mild to moderate in intensity. Exertion worsens symptom s. Resting improves symptoms. Patient voices no other complaints or concerns at this time. Timing/Duration: today Severity: moderate Modifying Factors: Improves With: movement Associated Symptoms: shortness of breath, No nausea, No vomiting, No abdominal pain, No diaphoresis, No cough, No fever, No syncope, No weakness Allergies/Adverse Reactions: No Known Drug Allergies Allergy (Verified 05/01/21 16:12) Home Medications: clonazePAM [Klonopin] 1 mg PO TID 06/04/17 [History] Albuterol Sulfate [Ventolin Hfa] 18 gm IN UD 01/21/18 [History] Aripiprazole Lauroxil [Aristada] 882 mg PO UD 01/21/18 [History] Benztropine Mesylate 1 mg PO DAILY 01/21/18 [History] haloperidoL [Haloperidol] 2 mg PO DAILY 01/21/18 [History] Cariprazine HCl [Vraylar] 1 ea DAILY 05/01/21 [History] Hx Tetanus, Diphtheria Vaccination/Date Given: No Hx Influenza Vaccination/Date Given: No Hx Pneumococcal Vaccination/Date Given: No Immunizations Up to Date: Yes Travel Risk - International Travel Have you traveled outside of the country in past 3 weeks: No - Coronavirus Screening Are you exhibiting any of the following symptoms?: Yes Symptoms: Cough: New Onset, Shortness of Breath, Headaches/Body Aches/Fatigue Close contact with a COVID-19 positive Pt in past 14-21 Days: No - Vaccine Status Have you recieved a Covid-19 vaccination: No - Review of Systems Constitutional: No Symptoms, No Fever, No Chills Eyes: No Symptoms Ears, Nose, & Throat: No Symptoms Respiratory: No Symptoms, No Cough, No Dyspnea Cardiac: No Symptoms, No Chest Pain, No Edema, No Syncope Abdominal/Gastrointestinal: No Symptoms, No Abdominal Pain, No Nausea, No Vomiting, No Diarrhea Genitourinary Symptoms: No Symptoms, No Dysuria Musculoskeletal: No Symptoms, No Back Pain, No Neck Pain Skin: No Symptoms, No Rash Neurological: No Symptoms, No Dizziness, No Focal Weakness, No Sensory Changes Psychological: No Symptoms Endocrine: No Symptoms Hematologic/Lymphatic: No Symptoms Immunological/Allergic: No Symptoms All Other Systems: Reviewed and Negative - Past Medical History Pertinent Past Medical History: Yes Neurological History: Other ENT History: No Pertinent History Cardiac History: High Cholesterol Respiratory History: Asthma, Pneumonia Musculoskeletal History: No Pertinent History GI Medical History: No Pertinent History History: No Pertinent History Psycho-Social History: Anxiety, Depression, Other Other Medical History: BORDERLINE PERSONALITY DISORDER, SCHIZOPHRENIA, HEAD TRAUMA, neuropathy in feet - Past Surgical History Past Surgical History: Yes Cardiac: No Pertinent History Respiratory: No Pertinent History Gastrointestinal: Cholecystectomy Genitourinary: No Pertinent History Musculoskeletal: No Pertinent History Female Surgical History: Tubal Ligation Other Surgical History: dental extration - Social History Smoking Status: Current every day smoker How long have you smoked: 20 years Exposure to second hand smoke: Yes Drug Use: none Patient Lives Alone: No - Female History Hx Last Menstrual Period: 3 weeks ago Hx Now: No - Nursing Vital Signs Nursing Vital Signs: Initial Vital Signs Temperature 98.8 F 05/01/21 16:05 Pulse Rate 117 H 05/01/21 16:05 Respiratory Rate 28 H 05/01/21 16:05 Blood Pressure 131/87 05/01/21 16:05 O2 Sat by Pulse Oximetry 96 05/01/21 16:05 Pain Scale Pain Intensity 4 - Physical Exam General Appearance: no apparent distress, alert, other (Audible wheezing) Eye Exam: PERRL/EOMI, eyes nml inspection Ears, Nose, Throat Exam: normal ENT inspection, TMs normal, pharynx normal, moist mucous membranes Neck Exam: normal inspection, non-tender, supple, full range of motion Respiratory Exam: normal breath sounds, lungs clear, airway intact, rhonchi, wheezing, other (Worse breath sounds bilaterally with wheezing.), No respiratory distress Cardiovascular Exam: regular rate/rhythm, normal heart sounds, normal peripheral pulses, other (No lower extremity pitting edema.) Gastrointestinal/Abdomen Exam: soft, normal bowel sounds, No tenderness, No mass Back Exam: normal inspection, normal range of motion, No CVA tenderness, No vertebral tenderness Extremity Exam: normal inspection, normal range of motion, pelvis stable, No pedal edema, No swelling Neurologic Exam: alert, oriented x 3, cooperative, normal mood/affect, nml cerebellar function, nml station & gait, sensation nml, No motor deficits Skin Exam: normal color, warm, dry, No rash Lymphatic Exam: No adenopathy SpO2 Interpretation: normal SpO2: 91 O2 Delivery: Room Air - Course Nursing assessment & vital signs reviewed: Yes EKG Interpreted by Me: RATE ([id number]), Sinus Tach, NORMAL AXIS, NORMAL INTERVALS - Radiology Exams Chest X-ray Interpretation: Interpreted by me (We will treat her consolidation. Normal cardiac silhouette. No pulmonary congestion. Intact bony thorax.) - CT Exams Chest CT Interpretation: Tele-radiologist Report (Tiny new nonoccluding PE medial post erior segmental branches left lower lobe, no bilateral scattered tree in bud opacities favoring pneumonitis. Stable benign 1.1 cm right upper lobe noncalcified nodule. Fatty liver.) Ordered Tests: Active Orders 24 hr Category Date Time Status Appraisal Coordinator STAT Care 05/01/21 16:22 Active EKG-ER Only STAT Care 05/01/21 16:22 Active IV Insertion STAT Care 05/01/21 16:22 Active Pulse Oximetry (ED) STAT Care 05/01/21 16:22 Active CHEST 1 VIEW (PORTABLE) Stat Exams 05/01/21 16:22 Completed CHEST WITH CONTRAST [CT] Stat Exams 05/01/21 21:56 Taken CBC W DIFF Stat Lab 05/01/21 16:20 Results CMP Urgent Lab 05/01/21 16:20 Completed MAGNESIUM Urgent Lab 05/01/21 16:20 Completed Manual Differential NC Stat Lab 05/01/21 16:20 Results NT PRO BNP Urgent Lab 05/01/21 16:20 Completed Pathologist Review Stat Lab 05/01/21 16:20 Results TROPONIN Q3H Lab 05/01/21 16:20 Completed TROPONIN Q3H Lab 05/01/21 19:14 Completed TROPONIN Q3H Lab 05/01/21 22:30 Completed TROPONIN Q3H Lab 05/02/21 01:30 Ordered TROPONIN Q3H Lab 05/02/21 04:30 Ordered UA W/RFX UR CULTURE Stat Lab 05/01/21 16:51 Completed Respiratory Therapy Assessment DAILY RT 05/01/21 17:45 Completed Medication Summary Discontinued Medications Generic Name Dose Route Start Last Admin Trade Name Jewelq PRN Reason Stop Dose Admin Albuterol Sulfate 2.5 mg 05/01/21 17:34 05/01/21 17:43 Proventil 2.5 Mg/3 Ml Neb IH 05/01/21 17:35 2.5 mg STAT ONE Administration Albuterol Sulfate Confirm 05/01/21 17:43 Proventil 2.5 Mg/3 Ml Neb Administered 05/01/21 17:44 Dose 2.5 mg IH .STK-MED ONE Aspirin 324 mg 05/01/21 17:38 05/01/21 18:03 Baby Aspirin 81 Mg Chew PO 05/01/21 17:39 324 mg STAT ONE Administration Aspirin Confirm 05/01/21 17:50 Baby Aspirin 81 Mg Chew Administered 05/01/21 17:51 Dose 324 mg .ROUTE .STK-MED ONE Methylprednisolone Sodium 0 mg 05/01/21 17:43 05/01/21 18:03 Succinate 125 mg/ Sterile IV 05/01/21 17:44 125 mg Water 2 ml STAT ONE Administration Enoxaparin Sodium 100 mg 05/01/21 22:26 05/01/21 22:39 Enoxaparin Sodium SQ 05/01/21 22:27 100 mg STAT STA Administration Methylprednisolone Sodium Succinate Confirm 05/01/21 17:50 Solu-Medrol Administered 05/01/21 17:51 Dose 125 mg .ROUTE .STK-MED ONE Sterile Water Confirm 05/01/21 17:50 Sterile H2o 10 Ml Administered 05/01/21 17:51 Dose 10 ml IJ .STK-MED ONE Lab/Rad Data: Laboratory Result Diagrams 05/01/21 16:20 05/01/21 16:20 Laboratory Results 07/12/21 07/12/21 07/12/21 Range/Units 23:02 22:30 19:14 WBC (4.0-10.5) K/mm3 RBC (4.1-5.4) M/mm3 Hgb (12.0-16.0) gm/dl Hct (35-47) % MCV (78-100) fl MCH (26-32) pg MCHC (32-36) g/dl RDW (11.5-14.0) % Plt Count (150-450) K/mm3 MPV (7.5-11.0) fl Segmented Neutrophils (36.0-66.0) % Lymphocytes (Manual) (24-44) % Monocytes (Manual) (0.0-12.0) % Nucleated RBCs % Platelet Estimate (NORMAL) RBC Morphology Macrocytosis Smear Path Review Sodium (137-145) mmol/L Potassium (3.5-5.1) mmol/L Chloride (98-107) mmol/L Carbon Dioxide (22-30) mmol/L Anion Gap (5-15) MEQ/L BUN (7-17) mg/dL Creatinine (0.52-1.04) mg/dL Estimated GFR ML/MIN Glucose (74-106) mg/dL Calcium (8.4-10.2) mg/dL Magnesium (1.6-2.3) mg/dL Total Bilirubin (0.2-1.3) mg/dL AST (14-36) U/L ALT (0-35) U/L Alkaline Phosphatase (38-126) U/L Troponin I 0.042 H* 0.054 H* (0.000-0.034) ng/mL NT-Pro-B Natriuret Pep (0-450) pg/mL Serum Total Protein (6.3-8.2) g/dL Albumin (3.5-5.0) g/dL Urine Color (YELLOW) Urine Appearance (CLEAR) Urine pH (5-6) Ur Specific [place] (1.005-1.025) Urine Protein (Negative) Urine Ketones (NEGATIVE) Urine Blood (0-5) Fig[place]/ul Urine Nitrite (NEGATIVE) Urine Bilirubin (NEGATIVE) Urine Urobilinogen (0-1) mg/dL Ur Leukocyte Esterase (NEGATIVE) Urine WBC (Auto) (0-5) /HPF Urine RBC (Auto) (0-2) /HPF U Hyaline Cast (Auto) (0-2) /LPF U Epithel Cells (Auto) (FEW) /HPF Urine Bacteria (Auto) (NEGATIVE) /HPF Urine Mucus (Auto) (NEGATIVE) /HPF Urine Culture Reflexed (NO) Urine Glucose (NEGATIVE) mg/dL SARS-CoV-2 (PCR) NEGATIVE (NEGATIVE) 05/01/21 05/01/21 05/01/21 Range/Units 16:51 16:20 16:20 WBC 15.1 H (4.0-10.5) K/mm3 RBC 5.91 H (4.1-5.4) M/mm3 Hgb 15.2 (12.0-16.0) gm/dl Hct 49.6 H (35-47) % MCV 83.9 (78-100) fl MCH 25.7 L (26-32) pg MCHC 30.6 L (32-36) g/dl RDW 20.6 H (11.5-14.0) % Plt Count 426 (150-450) K/mm3 MPV 8.8 (7.5-11.0) fl Segmented Neutrophils 81 H (36.0-66.0) % Lymphocytes (Manual) 12 L (24-44) % Monocytes (Manual) 7 (0.0-12.0) % Nucleated RBCs 2 % Platelet Estimate NORMAL (NORMAL) RBC Morphology ABNORMAL Macrocytosis 1+ Smear Path Review Pending Sodium 140 (137-145) mmol/L Potassium 3.7 (3.5-5.1) mmol/L Chloride 102 (98-107) mmol/L Carbon Dioxide 23 (22-30) mmol/L Anion Gap 18.0 H (5-15) MEQ/L BUN 13 (7-17) mg/dL Creatinine 0.74 (0.52-1.04) mg/dL Estimated GFR > 60.0 ML/MIN Glucose 124 H (74-106) mg/dL Calcium 10.3 H (8.4-10.2) mg/dL Magnesium 2.1 (1.6-2.3) mg/dL Total Bilirubin 0.10 L (0.2-1.3) mg/dL AST 82 H (14-36) U/L ALT 149 H (0-35) U/L Alkaline Phosphatase 133 H (38-126) U/L Troponin I 0.055 H* (0.000-0.034) ng/mL NT-Pro-B Natriuret Pep 218 (0-450) pg/mL Serum Total Protein 7.7 (6.3-8.2) g/dL Albumin 4.5 (3.5-5.0) g/dL Urine Color ELVIA (YELLOW) Urine Appearance CLOUDY (CLEAR) Urine pH 5.0 (5-6) Ur Specific [place] 1.027 (1.005-1.025) Urine Protein 100 (Negative) Urine Ketones TRACE (NEGATIVE) Urine Blood NEGATIVE (0-5) [place]/ul Urine Nitrite NEGATIVE (NEGATIVE) Urine Bilirubin SMALL (NEGATIVE) Urine Urobilinogen 2 (0-1) mg/dL Ur Leukocyte Esterase NEGATIVE (NEGATIVE) Urine WBC (Auto) 0-2 (0-5) /HPF Urine RBC (Auto) 0-2 (0-2) /HPF U Hyaline Cast (Auto) >50 (0-2) /LPF U Epithel Cells (Auto) PACKED (FEW) /HPF Urine Bacteria (Auto) RARE (NEGATIVE) /HPF Urine Mucus (Auto) MANY (NEGATIVE) /HPF Urine Culture Reflexed NO (NO) Urine Glucose NEGATIVE (NEGATIVE) mg/dL SARS-CoV-2 (PCR) (NEGATIVE) - Progress Progress: improved Progress Note: Work-up reveals wheezing likely asthma. Patient also has a tiny pulmonary embolism observed on CT scan. Lovenox administered. Troponin elevated however trending downward. Patient is Covid negative. Case discussed Dr. Melgar who accepts admission to observation. Plan of care discussed with patient. She agrees to admission [facility] for further evaluation and treatment. 05/02/21 00:26 Discussed with : Osvaldo Will see patient in: hospital (observation) Counseled pt/family regarding: lab results, diagnosis, rad results, smoking cessation - Departure Departure Disposition: Extended Care Facility Clinical Impression: Leukocytosis, High anion gap metabolic acidosis, Hyperglycemia, Elevated troponin, Proteinuria, Wheezing, Shortness of breath, Pulmonary embolism, Pneumonitis, Lung nodule, Fatty liver Condition: Stable Critical Care Time: No
[2021-05-01] MEDS ORDERED: BABY ASPIRIN 81 MG CHEW PO ONE (17:38)
[2021-05-01 17:42] LABS: Lymphocytes 12 % (24-44); Monocyte 7 % (0.0-12.0); Neutrophils 81 % (36.0-66.0); Nucleated Red Blood Cell 2 %; Total Cells Counted 100
[2021-05-01] MEDS ORDERED: solu-MEDROL 125 MG, Sterile H2O 10 ml 2 ML IV ONE ×2 (17:43)
[2021-05-01 17:45] LABS: Macrocytosis 1+; Platelet Estimate NORMAL (NORMAL)
[2021-05-01] MEDS ORDERED: BABY ASPIRIN 81 MG CHEW ONE (17:50)
[2021-05-01] MEDS ORDERED: solu-MEDROL ONE (17:50)
[2021-05-01] MEDS ORDERED: Sterile H2O 10 ml IJ ONE (17:50)
--- NOTE | 2021-05-01 19:24 | XRAY ---
Exam: AP portable chest film from 05/01/2021. Indication: Two-view chest from 07/09/2017. Indication: 40-year-old female with shortness of breath. Findings: The heart size is within normal limits for an AP portable technique. It is unchanged from 07/09/2017. The danni and mediastinal structures appear unremarkable. The lungs are adequately inflated. No air space infiltrates, vascular congestion, pneumothorax, or pleural fluid is seen. No acute osseous process is seen. Impression: 1. No acute cardiopulmonary disease is seen, no change from 07/09/2017. Note: Please note that I was in the radiology reading area until 6 PM on 05/01/2021, and this portable chest radiograph was not available for me to read, or at least it was "not highlighted in red" to indicate that it was a stat report.
[2021-05-01] MEDS ORDERED: ENOXAPARIN SODIUM SQ STA (22:26)
[2021-05-02] MEDS ORDERED: MAALOX ES 30 ML UNIT DOSE PO PRN (01:01)
[2021-05-02] MEDS ORDERED: MILK OF MAGNESIA 30 ML PO PRN (01:01)
[2021-05-02] MEDS ORDERED: Senokot-S Tablet PO PRN (01:01)
[2021-05-02] MEDS ORDERED: TYLENOL 325 MG PO PRN (01:01)
[2021-05-02] MEDS ORDERED: PROVENTIL 2.5 MG/3 ML NEB IH ONE ×2 (01:33→07:17)
[2021-05-02] MEDS: PROVENTIL 2.5 MG/3 ML NEB IH SCH ×6 (01:35→23:29)
[2021-05-02] MEDS ORDERED: clonazePAM PO ONE ×2 (02:06→17:25)
[2021-05-02] MEDS ORDERED: HALDOL 1 MG PO ONE (02:06)
[2021-05-02 05:08] LABS: Risk Ratio 8.9
[2021-05-02] MEDS ORDERED: ARIPIPRAZOLE LAUROXIL 882 MG IM SCH (08:15)
[2021-05-02] MEDS ORDERED: MEDICATION INTERVENTION PO SCH (08:15)
[2021-05-02] MEDS ORDERED: MEDICATION INTERVENTION MC SCH (08:30)
[2021-05-02] MEDS: clonazePAM PO SCH ×3 (09:04→21:20)
[2021-05-02] MEDS ORDERED: NON-FORMULARY ITEM (Clonazepam [Klonopin] 1 MG) PO SCH (10:00)
[2021-05-02] MEDS ORDERED: CARIPRAZINE HCL 6 MG PO SCH (10:00)
[2021-05-02] MEDS ORDERED: ENOXAPARIN SODIUM SQ SCH (10:00)
--- NOTE | 2021-05-02 10:08 | XRAY ---
Exam: CT of the chest with IV contrast from 05/01/2021. CTDI: 31.86 mGy Comparison: AP portable chest film from 05/01/[address] of the chest with IV contrast from 05/07/2015. Indication: 40-year-old female with shortness of breath; coughing; sweating. Clinical concern for pulmonary embolism; no d-dimer performed. History of prior cholecystectomy. Technique: Post-IV contrast axial images were obtained through the chest following automated intravenous injection of 80 cc of nonionic Isovue 370 contrast material, per PE protocol. Reconstructed coronal and sagittal images were created and reviewed. Findings: There is fairly good opacification of the main pulmonary trunk, right and left main pulmonary arteries, and most proximal lobar branches. I see no filling defects to suggest pulmonary emboli at these levels. In my opinion, opacification of the distal lower lobe pulmonary artery branches is not optimal, and I can make no comment about the possibility of distal pulmonary emboli by this exam. I see no evidence of thoracic aortic aneurysm or dissection. No abnormal mediastinal lymphadenopathy is seen. I do note a few scattered right lower lung field calcified granulomas. The transverse heart size appears within normal limits. There appears to be minimal pericardial fluid or thickening, as seen on the CT exam from 05/07/2015. The lung riojas reveal new bilateral scattered "tree-in-bud" opacities. This favors pneumonitis. A confluent dense airspace infiltrate is not seen. There is no pneumothorax or pleural effusion. I note a 1.1 cm low-attenuation, but solid noncalcified nodule within the anterior aspect of the right upper lobe which may be about 2 mm larger than that seen on 05/07/2015 when it measured about 0.9 cm in diameter. In addition, there appears to be a tiny nonspecific 3 mm nodule at the lateral right lung base on image #53 of series 3. I also note a 3-4 mm nodule posterolaterally at the right lung base on image #56 which is not definitely seen on the CT study from 05/07/2015. The left lower lung field reveals a subpleural 5 mm soft tissue nodule posterolaterally on image #52 of series 3 which I believe is similar to image #32 from 05/07/2015. These latter nodules are nonspecific. Hepatic steatosis is evident. The adrenal glands appear unremarkable. Surgical clips consistent with prior cholecystectomy are noted within the right upper quadrant. The remainder of the upper abdomen appears unremarkable. The skeleton reveals no acute fracture or aggressive bone abnormality. Small anterior vertebral endplate spurs are noted within the spine. Impression: 1. The timing of the intravenous injection of contrast with respect to the CT imaging is somewhat late, as much of the contrast is already seen in the left side of the heart and thoracic aorta. I can tell that there is no large pulmonary embolus within the main pulmonary artery trunk, right or left main pulmonary arteries, or most proximal lobar branches. However, assessment of the distal branches of the pulmonary arteries is quite limited. If the patient's d-dimer is elevated, one may want to consider correlation with a repeat study using 100 ML's of IV contrast with a better imaging time with respect to opacification of the pulmonary arteries. 2. I note new scattered bilateral "tree-in-bud" opacities, favoring pneumonitis. A dense airspace infiltrate is not seen. 3. 1.1 cm noncalcified soft tissue nodule within the anterior aspect of right upper lobe. This appears about 2 mm larger than that noted on 05/07/2015. Etiology is not clear. 4. Several very small soft tissue nodules are seen within the lower lung riojas, as discussed above. Some of these are new and measure under 5 mm in diameter. Significance is uncertain, but doubtful. 5. Old healed granulomatous disease within the right lower lung field. 6. Hepatic steatosis. 7. There appears to be minimal pericardial fluid/thickening. I don't believe this is significantly changed.
--- NOTE | 2021-05-02 10:08 | PCM.HP ---
History of Present Illness - Chief Complaint Chief Complaint: elevated troponin, PE History of Present Illness: is a 40 year old female. Medications & Allergies Home Medications: Home Medication List clonazePAM [Klonopin] 1 mg PO TID 06/04/17 [History Confirmed 05/02/21] Albuterol Sulfate [Ventolin Hfa] 18 gm IN UD 01/21/18 [History Confirmed 05/01/21] Aripiprazole Lauroxil [Aristada] 882 mg IM UD 01/21/18 [History Confirmed 05/02/21] Benztropine Mesylate 1 mg PO DAILY 01/21/18 [History Confirmed 05/02/21] haloperidoL [Haloperidol] 2 mg PO QHS 01/21/18 [History Confirmed 05/02/21] Cariprazine HCl [Vraylar] 6 mg PO DAILY 05/01/21 [History Confirmed 05/02/21] Allergies/Adverse Reactions: Allergies Allergy/AdvReac Type Severity Reaction Status Date / Time No Known Drug Allergies Allergy Verified 05/02/21 01:19 - Past Medical History Past Medical History: Yes Neurological History: Other ENT History: No Pertinent History Cardiac History: High Cholesterol Respiratory History: Asthma, Pneumonia Musculoskelatal History: No Pertinent History GI Medical History: No Pertinent History History: No Pertinent History Pyscho-Social History: Anxiety, Depression, Other Reproductive Disorders: No Pertinent History Comment: BORDERLINE PERSONALITY DISORDER, SCHIZOPHRENIA, HEAD TRAUMA, neuropathy in feet, BIPOLAR DISORDER - Female History Hx Last Menstrual Period: 3 weeks ago Are you now?: No - Past Surgical History Past Surgical History: Yes Cardiac History: No Pertinent History Respiratory Surgery: No Pertinent History GI Surgical History: Cholecystectomy Genitourinary Surgical Hx: No Pertinent History Musculskeletal Surgical Hx: No Pertinent History Female Surgical History: Tubal Ligation Other Surgical History: dental extration - Social History Smoking Status: Current every day smoker How long have you smoked: 21 years Exposure to second hand smoke: Yes Alcohol: None Drug Use: none - Physical Exam Vital Signs: Vital Signs - 24 hr Temp Pulse Resp BP Pulse Ox 05/02/21 04:46 96.7 F 104 H 30 H 131/92 94 L 05/02/21 02:17 100 H 28 H 94 L 05/02/21 01:23 96.2 F 103 H 32 H 144/80 95 05/02/21 01:18 96.2 F 103 H 32 H 144/80 95 05/02/21 01:16 96.2 F 103 H 32 H 144/80 95 05/02/21 00:27 91 L 05/01/21 22:00 87 18 133/92 96 05/01/21 20:00 93 H 20 121/67 93 L 05/01/21 19:00 106 H 20 120/75 92 L 05/01/21 18:00 110 H 24 147/88 98 05/01/21 17:46 112 H 24 93 L 05/01/21 17:13 114 H 22 128/89 05/01/21 16:45 91 L 05/01/21 16:05 98.8 F 117 H 28 H 131/87 96 Results - Labs Lab/Micro Results: Lab Results-Last 24 Hours 05/01/21 05/01/21 05/01/21 Range/Units 16:20 16:20 16:51 WBC 15.1 H (4.0-10.5) K/mm3 RBC 5.91 H (4.1-5.4) M/mm3 Hgb 15.2 (12.0-16.0) gm/dl Hct 49.6 H (35-47) % MCV 83.9 (78-100) fl MCH 25.7 L (26-32) pg MCHC 30.6 L (32-36) g/dl RDW 20.6 H (11.5-14.0) % Plt Count 426 (150-450) K/mm3 MPV 8.8 (7.5-11.0) fl Segmented Neutrophils 81 H (36.0-66.0) % Lymphocytes (Manual) 12 L (24-44) % Monocytes (Manual) 7 (0.0-12.0) % Nucleated RBCs 2 % Platelet Estimate NORMAL (NORMAL) RBC Morphology ABNORMAL Macrocytosis 1+ Smear Path Review Pending Sodium 140 (137-145) mmol/L Potassium 3.7 (3.5-5.1) mmol/L Chloride 102 (98-107) mmol/L Carbon Dioxide 23 (22-30) mmol/L Anion Gap 18.0 H (5-15) MEQ/L BUN 13 (7-17) mg/dL Creatinine 0.74 (0.52-1.04) mg/dL Estimated GFR > 60.0 ML/MIN Glucose 124 H (74-106) mg/dL Calcium 10.3 H (8.4-10.2) mg/dL Magnesium 2.1 (1.6-2.3) mg/dL Total Bilirubin 0.10 L (0.2-1.3) mg/dL AST 82 H (14-36) U/L ALT 149 H (0-35) U/L Alkaline Phosphatase 133 H (38-126) U/L Troponin I 0.055 H* (0.000-0.034) ng/mL NT-Pro-B Natriuret Pep 218 (0-450) pg/mL Serum Total Protein 7.7 (6.3-8.2) g/dL Albumin 4.5 (3.5-5.0) g/dL Triglycerides (30-150) mg/dL Cholesterol (50-200) mg/dL LDL Cholesterol (30-100) mg/dL HDL Cholesterol (40-60) mg/dL Heart Disease Risk Ratio Urine Color ELVIA (YELLOW) Urine Appearance CLOUDY (CLEAR) Urine pH 5.0 (5-6) Ur Specific [place] 1.027 (1.005-1.025) Urine Protein 100 (Negative) Urine Ketones TRACE (NEGATIVE) Urine Blood NEGATIVE (0-5) [place]/ul Urine Nitrite NEGATIVE (NEGATIVE) Urine Bilirubin SMALL (NEGATIVE) Urine Urobilinogen 2 (0-1) mg/dL Ur Leukocyte Esterase NEGATIVE (NEGATIVE) Urine WBC (Auto) 0-2 (0-5) /HPF Urine RBC (Auto) 0-2 (0-2) /HPF U Hyaline Cast (Auto) >50 (0-2) /LPF U Epithel Cells (Auto) PACKED (FEW) /HPF Urine Bacteria (Auto) RARE (NEGATIVE) /HPF Urine Mucus (Auto) MANY (NEGATIVE) /HPF Urine Culture Reflexed NO (NO) Urine Glucose NEGATIVE (NEGATIVE) mg/dL SARS-CoV-2 (PCR) (NEGATIVE) 05/01/21 05/01/21 05/01/21 Range/Units 19:14 22:30 23:02 WBC (4.0-10.5) K/mm3 RBC (4.1-5.4) M/mm3 Hgb (12.0-16.0) gm/dl Hct (35-47) % MCV (78-100) fl MCH (26-32) pg MCHC (32-36) g/dl RDW (11.5-14.0) % Plt Count (150-450) K/mm3 MPV (7.5-11.0) fl Segmented Neutrophils (36.0-66.0) % Lymphocytes (Manual) (24-44) % Monocytes (Manual) (0.0-12.0) % Nucleated RBCs % Platelet Estimate (NORMAL) RBC Morphology Macrocytosis Smear Path Review Sodium (137-145) mmol/L Potassium (3.5-5.1) mmol/L Chloride (98-107) mmol/L Carbon Dioxide (22-30) mmol/L Anion Gap (5-15) MEQ/L BUN (7-17) mg/dL Creatinine (0.52-1.04) mg/dL Estimated GFR ML/MIN Glucose (74-106) mg/dL Calcium (8.4-10.2) mg/dL Magnesium (1.6-2.3) mg/dL Total Bilirubin (0.2-1.3) mg/dL AST (14-36) U/L ALT (0-35) U/L Alkaline Phosphatase (38-126) U/L Troponin I 0.054 H* 0.042 H* (0.000-0.034) ng/mL NT-Pro-B Natriuret Pep (0-450) pg/mL Serum Total Protein (6.3-8.2) g/dL Albumin (3.5-5.0) g/dL Triglycerides (30-150) mg/dL Cholesterol (50-200) mg/dL LDL Cholesterol (30-100) mg/dL HDL Cholesterol (40-60) mg/dL Heart Disease Risk Ratio Urine Color (YELLOW) Urine Appearance (CLEAR) Urine pH (5-6) Ur Specific [place] (1.005-1.025) Urine Protein (Negative) Urine Ketones (NEGATIVE) Urine Blood (0-5) Figu[place]a/ul Urine Nitrite (NEGATIVE) Urine Bilirubin (NEGATIVE) Urine Urobilinogen (0-1) mg/dL Ur Leukocyte Esterase (NEGATIVE) Urine WBC (Auto) (0-5) /HPF Urine RBC (Auto) (0-2) /HPF U Hyaline Cast (Auto) (0-2) /LPF U Epithel Cells (Auto) (FEW) /HPF Urine Bacteria (Auto) (NEGATIVE) /HPF Urine Mucus (Auto) (NEGATIVE) /HPF Urine Culture Reflexed (NO) Urine Glucose (NEGATIVE) mg/dL SARS-CoV-2 (PCR) NEGATIVE (NEGATIVE) 05/02/21 05/02/21 05/02/21 Range/Units 01:45 04:45 04:45 WBC (4.0-10.5) K/mm3 RBC (4.1-5.4) M/mm3 Hgb (12.0-16.0) gm/dl Hct (35-47) % MCV (78-100) fl MCH (26-32) pg MCHC (32-36) g/dl RDW (11.5-14.0) % Plt Count (150-450) K/mm3 MPV (7.5-11.0) fl Segmented Neutrophils (36.0-66.0) % Lymphocytes (Manual) (24-44) % Monocytes (Manual) (0.0-12.0) % Nucleated RBCs % Platelet Estimate (NORMAL) RBC Morphology Macrocytosis Smear Path Review Sodium (137-145) mmol/L Potassium (3.5-5.1) mmol/L Chloride (98-107) mmol/L Carbon Dioxide (22-30) mmol/L Anion Gap (5-15) MEQ/L BUN (7-17) mg/dL Creatinine (0.52-1.04) mg/dL Estimated GFR ML/MIN Glucose (74-106) mg/dL Calcium (8.4-10.2) mg/dL Magnesium (1.6-2.3) mg/dL Total Bilirubin (0.2-1.3) mg/dL AST (14-36) U/L ALT (0-35) U/L Alkaline Phosphatase (38-126) U/L Troponin I 0.025 0.023 (0.000-0.034) ng/mL NT-Pro-B Natriuret Pep (0-450) pg/mL Serum Total Protein (6.3-8.2) g/dL Albumin (3.5-5.0) g/dL Triglycerides 287 H (30-150) mg/dL Cholesterol 281 H (50-200) mg/dL LDL Cholesterol 225 H (30-100) mg/dL HDL Cholesterol 32 L (40-60) mg/dL Heart Disease Risk Ratio 8.9 Urine Color (YELLOW) Urine Appearance (CLEAR) Urine pH (5-6) Ur Specific [place] (1.005-1.025) Urine Protein (Negative) Urine Ketones (NEGATIVE) Urine Blood (0-5) Figu[place]a/ul Urine Nitrite (NEGATIVE) Urine Bilirubin (NEGATIVE) Urine Urobilinogen (0-1) mg/dL Ur Leukocyte Esterase (NEGATIVE) Urine WBC (Auto) (0-5) /HPF Urine RBC (Auto) (0-2) /HPF U Hyaline Cast (Auto) (0-2) /LPF U Epithel Cells (Auto) (FEW) /HPF Urine Bacteria (Auto) (NEGATIVE) /HPF Urine Mucus (Auto) (NEGATIVE) /HPF Urine Culture Reflexed (NO) Urine Glucose (NEGATIVE) mg/dL SARS-CoV-2 (PCR) (NEGATIVE) - Radiology Impressions Radiology Exams & Impressions: Radiology Procedures Category Date Time Status CHEST 1 VIEW (PORTABLE) Stat Exams 05/01/21 16:22 Completed CHEST WITH CONTRAST [CT] Stat Exams 05/01/21 21:56 Taken ECHO W/2D AND DOPPLER [US] Stat Exams 05/02/21 08:52 Ordered VENOUS BILATERAL EXTREMITY [US] Urgent Exams 05/02/21 Ordered - Other Procedures and Tests Respiratory Therapy 05/01/21 17:45 Respiratory Therapy Assessment DAILY 05/02/21 01:44 Oxygen Nasal Cannula 2 lpm 05/03/21 05:00 EKG ROUTINE 05/04/21 05:00 EKG ROUTINE 05/05/21 05:00 EKG ROUTINE Assessment/Plan (1) Pulmonary embolism Current Visit: Yes Status: Acute Assessment & Plan: Lovenox started in ER will continue ,Pulmonology consult requested with Dr Mcdowell Code(s): I26.99 - OTHER PULMONARY EMBOLISM WITHOUT ACUTE COR PULMONALE (2) Elevated troponin Current Visit: Yes Status: Acute Assessment & Plan: unable to transfer ptn from ER to [facility] (no beds) 4th troponin down to 0.23. ECHO today Code(s): R77.8 - OTHER SPECIFIED ABNORMALITIES OF PLASMA PROTEINS (3) Bronchitis with bronchospasm Current Visit: Yes Status: Acute Assessment & Plan: WBC 15,000+ started Rocephin,Neb tx Code(s): J20.9 - ACUTE BRONCHITIS, UNSPECIFIED (4) Bipolar 1 disorder, depressed Current Visit: No Status: Chronic Assessment & Plan: continue home meds (5) Anxiety Current Visit: No Status: Acute Assessment & Plan: Is on Klonopin will increase dose if needed during hospital stay,Mother Zoraida Lawler supportive-patient lives with her. Code(s): F41.9 - ANXIETY DISORDER, UNSPECIFIED
[2021-05-02] MEDS: COGENTIN 0.5 MG PO SCH (10:54)
[2021-05-02] MEDS: ENOXAPARIN SODIUM SQ SCH ×2 (10:58→21:21)
[2021-05-02] MEDS: ROCEPHIN 2 Gm-D5w 50ML BAG** 2 G/50 ML IVPB IV SCH (11:00)
--- NOTE | 2021-05-02 11:49 | XRAY ---
Exam: Bilateral lower extremity duplex Doppler venous ultrasound exam from 05/02/2021. Indication: 40-year-old female with PE. Technique: Grayscale images, color blood flow images, and Doppler tracings without and with augmentation were obtained within both lower extremities. Findings: Within the proximal right superficial femoral vein, I note a nonocclusive echogenic density which appears persistent in both transverse and longitudinal planes. This does not appear to be an artifact. The area around this echogenic density does compress normally. This could be a nonocclusive venous thrombus within the proximal right superficial femoral vein. The remainder of the right lower extremity reveals normal grayscale images, color blood flow images, and transducer compression throughout. Normal Doppler signal is seen without and with augmentation. Normal color blood flow and Doppler signal is seen within the greater saphenous vein in the proximal right thigh. The left lower extremity deep veins also reveal normal color blood flow imaging, transducer compression, and Doppler signal augmentation throughout. Normal color blood flow and Doppler signal is seen within the greater saphenous vein of the proximal left thigh. Impression: 1. There is a persistent focal echogenic density within the proximal right superficial femoral vein (i.e. deep venous system) which may represent nonocclusive thrombus, although the superficial femoral vein around this density does compress with transducer pressure. 2. I see no other evidence of deep venous thrombosis within either lower extremity. 3. I see no evidence of superficial venous thrombosis within the greater saphenous vein of either proximal thigh.
[2021-05-02] MEDS: Cardizem 30 MG PO SCH ×2 (14:48→21:21)
--- NOTE | 2021-05-02 15:35 | CONS ---
CONSULT DATE: 05/02/2021 BRIEF HISTORY: This is a 40 year-old female who was admitted for elevated troponin I. The patient presented yesterday complaining of acute shortness of breath. She had a venous Doppler study which showed a thrombus in the proximal right superficial femoral vein. The CT scan of the chest was suspicious for distal pulmonary embolism. Her troponin I was initially 0.05 but this is trending down. She denies any chest pains. There was no apparent precipitating factor for the development of venous thrombosis. She has never had previous myocardial infarction or heart failure. She denies any palpitations. No fainting spells. CARDIAC RISK FACTORS: Negative for diabetes. History of labile hypertension. She smokes about a pack of cigarettes a day. She has hyperlipidemia. FAMILY HISTORY: Positive for coronary artery disease. Father had a myocardial infarction. REVIEW OF SYSTEMS: BACKUP SAWYER: No history of stroke or seizures. PSYCH: She has diagnosis of bipolar disorder. RESPIRATORY: She has history of bronchial asthma but continues to smoke. GI: No history of peptic ulcer or colon disorder. : Negative for dysuria. No flank pains. PERIPHERAL VASCULAR: No claudication. HEMATOLOGY: She has had blood transfusion in the past due surgery to the uterus. ENDOCRINE: No history of thyroid disorder. PAST SURGICAL HISTORY: Surgery for ruptured uterus. CURRENT MEDICATIONS: Advair inhaler, Cogentin, clonazepam, Lovenox, haloperidol. SOCIAL HISTORY: She is single. She has no significant alcohol intake. PHYSICAL EXAMINATION: Her blood pressure is 132/92 with heart rate of 104, respirations about 30. GENERAL: The patient is a middle aged female who is alert, oriented, obese who is currently chest pain free. HEENT: Unremarkable. NECK: No significant JVD. No carotid bruit. CHEST: The breath sounds are harsh with some rhonchi. CARDIAC: Heart tones are normal. There is a grade 2/6 systolic murmur that is heard along the left parasternal border. There is an S3 gallop. The rhythm is regular. ABDOMEN: Obese with normal bowel sounds. EXTREMITIES: No significant leg edema. Multiple tattoos on extremities. Distal pulses are strong. LAB DATA AND DIAGNOSTIC TESTS: The EKG showed normal sinus rhythm with poor R progression. Troponin I is down to 0.023. The creatinine is 0.74. The GFR is greater than 60. AST 82, SGPT 149. ProBNP 218. IMPRESSION: In essence the patient presented with acute shortness of breath associated with clinical findings thromboembolism involving the right lower extremity leading to pulmonary embolism. I agree with anticoagulants and transition to an oral anticoagulant on discharge. She currently has no angina. I think the elevated troponin is related to the thromboembolic event. The patient has some cardiac risk factors and would schedule the patient for an outpatient cardiac calcium score for screening. Meanwhile the patient will be started on diltiazem to control heart rate and also blood pressure. I will follow her up in the outpatient clinic. Due to her young age would perform hypercoagulable study.
[2021-05-02] MEDS ORDERED: HALOPERIDOL 2 MG PO SCH (22:00)
[2021-05-02] MEDS ORDERED: HALDOL 1 MG PO SCH (22:00)
[2021-05-03] MEDS: PROVENTIL 2.5 MG/3 ML NEB IH SCH ×4 (03:55→14:54)
[2021-05-03 05:35] LABS: INR 1.01 (0.8-3.0); PROTIME 11.9 SECONDS (9.4-12.5)
[2021-05-03] MEDS: Cardizem 30 MG PO SCH ×2 (05:43→13:42)
--- NOTE | 2021-05-03 07:43 | ECHO ---
Transthoracic echocardiographic examination and color Doppler was done on 05/02/2021. INDICATION: Pulmonary embolism, shortness of breath. IMPRESSION: THE STUDY WAS SOMEWHAT LIMITED BECAUSE OF A LIMITED ACOUSTIC WINDOW. The left ventricle was only partially visualized. The left ventricular wall motion appears to be normal. The left ventricular ejection fraction is around 65 to 70%. The right side chambers are normal. Color flow study indicates some evidence of mild tricuspid regurgitation with right ventricular systolic pressure of 42 mm of Mercury. There is also mild mitral regurgitation. There is a gradient across the left ventricular outflow tract of around 26 mm of Mercury. There is concentric left ventricular hypertrophy. There appears to be some pericardial effusion but quite difficult to quantitate due to the limited study.
[2021-05-03] MEDS: clonazePAM PO SCH ×2 (10:04→13:42)
[2021-05-03] MEDS: COGENTIN 0.5 MG PO SCH (10:05)
[2021-05-03] MEDS: ROCEPHIN 2 Gm-D5w 50ML BAG** 2 G/50 ML IVPB IV SCH (10:06)
[2021-05-03] MEDS: ENOXAPARIN SODIUM SQ SCH (10:10)
[2021-05-03 12:10] VITALS: BP 108/66; O2SAT 93
--- NOTE | 2021-05-03 12:15 | PCM.NOTE ---
Date and Time: 05/03/21 1210 Patient is still on O2 3L/NC was reduced from 4L,tachypnic this morning per nursing B/P .Pulse has improved with med change,remains afebrile. Patient denies productive cough or chest pain. Silvia Garcai has chronic anxiety with Bipolar and an increased dose of Klonopin has helped. I spoke to her mother Zoraida ,patient phoned her from the bedside. She will come in this afternoon to sit with Crystal. Dr Flannery will be reading the ECHO done yesterday and he started her on Cardiazem for B/P and heart rate. Dr Mcdowell ,[employer] will be consulting. Chest CT possible PE ,nonoccluding. LE doppler positive for DVT right LE. She is tolerating Lovenox 130mg q 12hours. Patient's PCP is Dr Trevino at [facility] but I sonny he recently retired. She states she has seen Dr Centeno and would like to follow with him. Mother states patient was hospitalized at [facility] a few months ago and required transfusion. Records have been requested. Objective Exam General Appearance: no apparent distress (is laying down on right side resting but awake), obese (morbidly obese) Neurologic Exam: alert, oriented x 3, normal mood/affect (had Klonipin about 1 hour ago and is calm) Skin Exam: normal color, warm, dry Eye Exam: eyes nml inspection Ears, Nose, Throat Exam: moist mucous membranes Neck Exam: normal inspection Respiratory Exam: wheezing (mid lung riojas) Cardiovascular Exam: regular rate/rhythm, normal heart sounds Gastrointestinal/Abdomen Exam: soft (obese,nontender) OBJECTIVE DATA Vital Signs: Vital Signs - 24 hr Temp Pulse Resp BP Pulse Ox 05/03/21 12:00 97.5 F 89 22 108/66 93 L 05/03/21 11:09 84 14 96 05/03/21 08:00 28 H 05/03/21 07:54 98.2 F 85 20 127/73 93 L 05/03/21 07:44 86 28 H 93 L 05/03/21 04:00 97.7 F 90 22 134/60 95 05/03/21 03:57 83 22 93 L 05/03/21 00:00 21 05/02/21 23:46 98.7 F 86 21 136/85 98 05/02/21 23:29 92 H 22 94 L 05/02/21 20:24 97.7 F 103 H 22 120/84 95 05/02/21 20:23 97 H 20 96 05/02/21 20:00 97.7 F 103 H 22 120/84 95 05/02/21 15:24 104 H 20 93 L 05/02/21 14:00 97.7 F 109 H 34 H 136/73 94 L Pain Assessment - Last Documented Pain Intensity 0 Intake and Output: Intake & Output 05/01/21 05/02/21 05/03/21 05/04/21 11:59 11:59 11:59 11:59 Intake Total 540 880 Balance 540 880 Weight 133.1 kg 135.5 kg Lab Results: Lab Results-Last 24 Hours 05/01/21 05/03/21 05/03/21 Range/Units 16:20 05:03 05:03 Smear Path Review PT 11.9 (9.4-12.5) SECONDS INR 1.01 (0.8-3.0) Vitamin B12 539 (239-931) pg/mL Radiology Exams: Radiology Procedures Category Date Time Status CHEST 1 VIEW (PORTABLE) Stat Exams 05/01/21 16:22 Completed CHEST WITH CONTRAST [CT] Stat Exams 05/01/21 21:56 Completed ECHO W/2D AND DOPPLER [US] Stat Exams 05/02/21 08:52 Completed VENOUS BILATERAL EXTREMITY [US] Urgent Exams 05/02/21 11:19 Completed Multi-Disciplinary Progress Notes: Multi-Disciplinary Progress Notes 05/03/21 11:39 Case Management Note by Allyson Sky PATIENT STILL ACUTELY ILL- REQUIRING 4L/NC- WILL CONTINUE TO FOLLOW Initialized on 05/03/21 11:39 - END OF NOTE 05/03/21 11:14 Respiratory Note by Elsie Prabhakar Pt O2 sat 96% on 4lpm nc. Decreased to 3lpm nc. Initialized on 05/03/21 11:14 - END OF NOTE Assessment/Plan (1) Pulmonary embolism Current Visit: Yes Status: Acute Assessment & Plan: nonobstructive,see CT full report Code(s): I26.99 - OTHER PULMONARY EMBOLISM WITHOUT ACUTE COR PULMONALE (2) Elevated troponin Current Visit: Yes Status: Acute Code(s): R77.8 - OTHER SPECIFIED ABNORMALITIES OF PLASMA PROTEINS (3) Bronchitis with bronchospasm Current Visit: Yes Status: Acute Assessment & Plan: start Solumedrol Code(s): J20.9 - ACUTE BRONCHITIS, UNSPECIFIED (4) Bipolar 1 disorder, depressed Current Visit: No Status: Chronic (5) Anxiety Current Visit: No Status: Acute Assessment & Plan: is better with an additional dose of Klonopin,takes tid as home med. Code(s): F41.9 - ANXIETY DISORDER, UNSPECIFIED
[2021-05-03 12:32] LABS: Hematocrit 46.5 % (35-47); Hemoglobin 13.8 gm/dl (12.0-16.0); Mean Corpuscular Hemoglobin 25.5 pg (26-32); Mean Corpuscular Hgb Concent. 29.7 g/dl (32-36); Mean Platelet Volume 8.8 fl (7.5-11.0); Platelet Count 395 K/mm3 (150-450); Red Blood Count 5.41 M/mm3 (4.1-5.4); White Blood Count 17.3 K/mm3 (4.0-10.5)
[2021-05-03 12:37] LABS: INR 1.01 (0.8-3.0); PROTIME 11.9 SECONDS (9.4-12.5)
[2021-05-03 12:51] LABS: ALKALINE PHOSPHATASE 94 U/L (38-126); ANION GAP 12.9 MEQ/L (5-15); BILIRUBIN,TOTAL < 0.10 mg/dL (0.2-1.3); BLOOD UREA NITROGEN 21 mg/dL (7-17); CHLORIDE 103 mmol/L (98-107); Calcium 9.2 mg/dL (8.4-10.2); Carbon Dioxide 29 mmol/L (22-30); Creatinine 1 0.55 mg/dL (0.52-1.04); EST GLOMERULAR FILTRATION RATE > 60.0 ML/MIN; Glucose 78 mg/dL (74-106); Potassium 3.3 mmol/L (3.5-5.1); SGOT/AST 47 U/L (14-36); SGPT/ALT 88 U/L (0-35); SODIUM 141 mmol/L (137-145); Total Protein 7.2 g/dL (6.3-8.2)
[2021-05-03 13:22] LABS: NT PRO BNP 96.4 pg/mL (0-450); TSH, 3RD Generation 0.866 mIU/L (0.47-4.68)
[2021-05-03] MEDS ORDERED: K-LYTE 25 MEQ PO ONE (13:49)
[2021-05-03] MEDS ORDERED: solu-MEDROL 80 MG, Sterile H2O 10 ml 2 ML IV SCH ×2 (14:00)
[2021-05-03] MEDS ORDERED: Zosyn 3.375 GM Vial 3.375 GM in Sodium Chloride 100ML MINI-BAG PLUS 100 ML IV SCH (14:00)
[2021-05-03 14:55] LABS: ANISOCYTOSIS 1+; Lymphocytes 29 % (24-44); Monocyte 2 % (0.0-12.0); Neutrophils 69 % (36.0-66.0); Platelet Estimate NORMAL (NORMAL); Total Cells Counted 100
[2021-05-03 14:56] VITALS: PULSE 88
[2021-05-03] MEDS ORDERED: HUMULIN R SQ PRN (16:42)
--- NOTE | 2021-05-03 17:19 | PCM.DS ---
Discharge Summary Date of Admission: 05/02/21 00:17 Admitting Physician: YANNICK DURAN DO Consults: Consults on Case 05/02/21 08:52 Consult Pulmonology ROUTINE 05/02/21 10:41 Consult Cardiology ROUTINE Primary Care Provider: ALBERTO COLÓN Allergies Allergies No Known Drug Allergies Allergy (Verified 05/02/21 01:19) Hospital Summary - Vitals & Intake/Output Vital Signs: Vital Signs Temperature 97.5 F 05/03/21 12:00 Pulse Rate 88 05/03/21 14:55 Respiratory Rate 20 05/03/21 14:55 Blood Pressure 108/66 05/03/21 12:00 O2 Sat by Pulse Oximetry 93 L 05/03/21 14:55 Intake & Output: Intake & Output 05/01/21 05/02/21 05/03/21 05/04/21 11:59 11:59 11:59 11:59 Intake Total 540 880 Balance 540 880 Weight 133.1 kg 135.5 kg - Lab Result Diagrams: 05/03/21 12:23 05/03/21 12:23 Lab Results-Last 24 Hrs: Lab Results-Last 24 Hours 05/03/21 05/03/21 05/03/21 Range/Units 05:03 05:03 12:09 WBC (4.0-10.5) K/mm3 RBC (4.1-5.4) M/mm3 Hgb (12.0-16.0) gm/dl Hct (35-47) % MCV (78-100) fl MCH (26-32) pg MCHC (32-36) g/dl RDW (11.5-14.0) % Plt Count (150-450) K/mm3 MPV (7.5-11.0) fl Segmented Neutrophils (36.0-66.0) % Lymphocytes (Manual) (24-44) % Monocytes (Manual) (0.0-12.0) % Platelet Estimate (NORMAL) RBC Morphology Anisocytosis PT 11.9 (9.4-12.5) SECONDS INR 1.01 (0.8-3.0) APTT (25.1-36.5) SECONDS Sodium (137-145) mmol/L Potassium (3.5-5.1) mmol/L Chloride (98-107) mmol/L Carbon Dioxide (22-30) mmol/L Anion Gap (5-15) MEQ/L BUN (7-17) mg/dL Creatinine (0.52-1.04) mg/dL Estimated GFR ML/MIN Glucose (74-106) mg/dL Calcium (8.4-10.2) mg/dL Total Bilirubin (0.2-1.3) mg/dL AST (14-36) U/L ALT (0-35) U/L Alkaline Phosphatase (38-126) U/L NT-Pro-B Natriuret Pep 96.4 (0-450) pg/mL Serum Total Protein (6.3-8.2) g/dL Albumin (3.5-5.0) g/dL Vitamin B12 539 (239-931) pg/mL TSH 3rd Generation 0.866 (0.47-4.68) mIU/L 05/03/21 05/03/21 05/03/21 Range/Units 12:23 12:23 12:23 WBC 17.3 H (4.0-10.5) K/mm3 RBC 5.41 H (4.1-5.4) M/mm3 Hgb 13.8 (12.0-16.0) gm/dl Hct 46.5 (35-47) % MCV 86.0 (78-100) fl MCH 25.5 L (26-32) pg MCHC 29.7 L (32-36) g/dl RDW 20.0 H (11.5-14.0) % Plt Count 395 (150-450) K/mm3 MPV 8.8 (7.5-11.0) fl Segmented Neutrophils 69 H (36.0-66.0) % Lymphocytes (Manual) 29 (24-44) % Monocytes (Manual) 2 (0.0-12.0) % Platelet Estimate NORMAL (NORMAL) RBC Morphology ABNORMAL Anisocytosis 1+ PT (9.4-12.5) SECONDS INR (0.8-3.0) APTT 41.7 H (25.1-36.5) SECONDS Sodium 141 (137-145) mmol/L Potassium 3.3 L (3.5-5.1) mmol/L Chloride 103 (98-107) mmol/L Carbon Dioxide 29 (22-30) mmol/L Anion Gap 12.9 (5-15) MEQ/L BUN 21 H (7-17) mg/dL Creatinine 0.55 (0.52-1.04) mg/dL Estimated GFR > 60.0 ML/MIN Glucose 78 (74-106) mg/dL Calcium 9.2 (8.4-10.2) mg/dL Total Bilirubin < 0.10 L (0.2-1.3) mg/dL AST 47 H (14-36) U/L ALT 88 H (0-35) U/L Alkaline Phosphatase 94 (38-126) U/L NT-Pro-B Natriuret Pep (0-450) pg/mL Serum Total Protein 7.2 (6.3-8.2) g/dL Albumin 4.0 (3.5-5.0) g/dL Vitamin B12 (239-931) pg/mL TSH 3rd Generation (0.47-4.68) mIU/L 05/03/21 Range/Units 12:23 WBC (4.0-10.5) K/mm3 RBC (4.1-5.4) M/mm3 Hgb (12.0-16.0) gm/dl Hct (35-47) % MCV (78-100) fl MCH (26-32) pg MCHC (32-36) g/dl RDW (11.5-14.0) % Plt Count (150-450) K/mm3 MPV (7.5-11.0) fl Segmented Neutrophils (36.0-66.0) % Lymphocytes (Manual) (24-44) % Monocytes (Manual) (0.0-12.0) % Platelet Estimate (NORMAL) RBC Morphology Anisocytosis PT 11.9 (9.4-12.5) SECONDS INR 1.01 (0.8-3.0) APTT (25.1-36.5) SECONDS Sodium (137-145) mmol/L Potassium (3.5-5.1) mmol/L Chloride (98-107) mmol/L Carbon Dioxide (22-30) mmol/L Anion Gap (5-15) MEQ/L BUN (7-17) mg/dL Creatinine (0.52-1.04) mg/dL Estimated GFR ML/MIN Glucose (74-106) mg/dL Calcium (8.4-10.2) mg/dL Total Bilirubin (0.2-1.3) mg/dL AST (14-36) U/L ALT (0-35) U/L Alkaline Phosphatase (38-126) U/L NT-Pro-B Natriuret Pep (0-450) pg/mL Serum Total Protein (6.3-8.2) g/dL Albumin (3.5-5.0) g/dL Vitamin B12 (239-931) pg/mL TSH 3rd Generation (0.47-4.68) mIU/L - Radiology Exams Ordered Rad Exams-Entire Visit: Radiology Procedures Category Date Time Status CHEST 1 VIEW (PORTABLE) Stat Exams 05/01/21 16:22 Completed CHEST WITH CONTRAST [CT] Stat Exams 05/01/21 21:56 Completed ECHO W/2D AND DOPPLER [US] Stat Exams 05/02/21 08:52 Completed VENOUS BILATERAL EXTREMITY [US] Urgent Exams 05/02/21 11:19 Completed - Procedures and Test Procedures and Tests throughout Hospitalization: Therapy Orders & Screens 05/01/21 17:45 Respiratory Therapy Assessment DAILY Comment: 05/02/21 01:12 EKG ROUTINE Comment: Diagnosis: Pulmonary embolism 05/02/21 01:43 Smoking Cessation Education ONCE Comment: Diagnosis: elevated troponin, PE Smoking Status: Current every day smoker How long have you smoked: 21 years Have you smoked in the past 12 months: Yes Approximately how many cigarettes per day: 20 Do you dip or chew tobacco: No 05/02/21 01:44 Oxygen Nasal Cannula 2 lpm Comment: Diagnosis: elevated troponin, PE 05/02/21 11:00 Smoking Cessation Education ONCE Comment: Diagnosis: elevated troponin, PE Smoking Status: Current every day smoker How long have you smoked: 21 years Have you smoked in the past 12 months: Yes Approximately how many cigarettes per day: 20 Do you dip or chew tobacco: No 05/03/21 05:00 EKG ROUTINE Comment: Diagnosis: Pulmonary embolism 05/04/21 05:00 EKG ROUTINE Comment: Diagnosis: Pulmonary embolism 05/05/21 05:00 EKG ROUTINE Comment: Diagnosis: Pulmonary embolism Final Diagnosis/Problem List - Final Discharge Diagnosis/Problem (1) Pulmonary embolism Current Visit: Yes Status: Acute Code(s): I26.99 - OTHER PULMONARY EMBOLISM WITHOUT ACUTE COR PULMONALE (2) Elevated troponin Current Visit: Yes Status: Acute Code(s): R77.8 - OTHER SPECIFIED ABNO RMALITIES OF PLASMA PROTEINS (3) Bronchitis with bronchospasm Current Visit: Yes Status: Acute Code(s): J20.9 - ACUTE BRONCHITIS, UNSPECIFIED (4) Bipolar 1 disorder, depressed Current Visit: No Status: Chronic (5) Anxiety Current Visit: No Status: Acute Code(s): F41.9 - ANXIETY DISORDER, UNSPECIFIED - Discharge Disposition: Against Medical Advice Condition: Stable Prescriptions: New Apixaban [Eliquis] 5 mg PO BID #1 tab.ds.pk No Action clonazePAM [Klonopin] 1 mg PO TID haloperidoL [Haloperidol] 2 mg PO QHS Benztropine Mesylate 1 mg PO DAILY Aripiprazole Lauroxil [Aristada] 882 mg IM UD Albuterol Sulfate [Ventolin Hfa] 18 gm IN UD Cariprazine HCl [Vraylar] 6 mg PO DAILY Additional Instructions: Patient left AMA. Her mother came to visit and then drove her home per nursing. I contacted Dr Trevino's office and spoke to his nurse who states Renea has appt 05/15/21. Dr rTevino will call me back so I can update him of the patients condition and Tx. I notified Zoraida,patient's mother, of the medication Eliquis for tx of her DVT and stressed the importance of this. Follow up with: DAYTON HER [ACTIVE STAFF] -
== END 2021-05-03 16:45 | disposition left against medical advice (07) ==
LOC: ED 15:59 → MED SURG 05-02 00:17
PROVIDERS: ADMIT Family Medicine; ATTEND Family Medicine
DX: I26.99 Other pulmonary embolism without acute cor pulmonale (principal); Z79.899 Other long term (current) drug therapy; R51.9 Headache, unspecified; R53.83 Other fatigue; E78.00 Pure hypercholesterolemia, unspecified; R77.8 Other specified abnormalities of plasma proteins; J20.9 Acute bronchitis, unspecified; F41.9 Anxiety disorder, unspecified; F31.9 Bipolar disorder, unspecified; F17.200 Nicotine dependence, unspecified, uncomplicated; Z20.828 Contact with and (suspected) exposure to other viral communicable diseases
CPT/HCPCS: 36000; 36415; 71045; 71260; 80053; 80061; 81001; 81241; 82607; 83721; 83735; 83880; 84443; 84484; 85025; 85300; 85302; 85305; 85306; 85610; 85730; 93005; 93041; 93306; 93970; 94640; 94760; 96372; 96374; 99285; U0003; 93268; J0696; J1650; J2930; J7609; A9270-GY; G0378

== ENCOUNTER 2021-05-03 18:52 | Inpatient (IN) | payer OTHER ==
[2021-05-03] MEDS ORDERED: solu-MEDROL 125 MG, Sterile H2O 10 ml 2 ML IV ONE ×2 (19:05)
[2021-05-03] MEDS ORDERED: DUONEB 0.5-3 MG/3 ml Neb IH ONE ×2 (19:05→19:09)
--- NOTE | 2021-05-03 19:09 | ERPHSYRPT ---
- History of Present Illness Time Seen by Provider: 05/03/21 19:00 Source: patient, family Exam Limitations: no limitations Patient Subjective Stated Complaint: C/O Shortness of breath. States, "I have blood clots and anxiety." Triage Nursing Assessment: SOB with wheezes noted. Respirations are labored, rapid. 02 sats 94% on room air. Denies any chest pain. Physician History: 40 years old morbidly obese female with recent diagnosis of right superficial femoral vein nonocclusive thrombosis and distal pulmonary emboli who was admitted but left AMA today. Patient reports she smoked 1 cigarette and her shortness of breath got worse. On presentation she is tachypneic with loud wheezing all over. Reporting tightness and pressure in the chest with productive cough clear sputum. Denies any fever or chills. Patient wants to be admitted again. Timing/Duration: week(s) (1), constant, gradual onset, worse Activities at Onset: activity, rest Severity of Dyspnea-Max: severe Severity of Dyspnea-Current: moderate Modifying Factors: Improves With: albuterol nebulizer, oxygen. Worsens With: activity, coughing, exertion Associated Symptoms: anxiety, cough, wheezing, painful breathing, productive cough, tightness, No muscle spasms feet, No muscle spasms hands Allergies/Adverse Reactions: No Known Drug Allergies Allergy (Verified 05/02/21 01:19) Home Medications: clonazePAM [Klonopin] 1 mg PO TID 06/04/17 [History] Albuterol Sulfate [Ventolin Hfa] 18 gm IN UD 01/21/18 [History] Aripiprazole Lauroxil [Aristada] 882 mg IM UD 01/21/18 [History] Benztropine Mesylate 1 mg PO DAILY 01/21/18 [History] haloperidoL [Haloperidol] 2 mg PO QHS 01/21/18 [History] Cariprazine HCl [Vraylar] 6 mg PO DAILY 05/01/21 [History] Hx Tetanus, Diphtheria Vaccination/Date Given: No Hx Influenza Vaccination/Date Given: No Hx Pneumococcal Vaccination/Date Given: No Travel Risk - International Travel Have you traveled outside of the country in past 3 weeks: No - Coronavirus Screening Are you exhibiting any of the following symptoms?: Yes Symptoms: Shortness of Breath Close contact with a COVID-19 positive Pt in past 14-21 Days: No - Vaccine Status Have you recieved a Covid-19 vaccination: No - Review of Systems Constitutional: Fatigue, Weakness Eyes: No Symptoms Ears, Nose, & Throat: No Symptoms Respiratory: Cough, Dyspnea, Dyspnea on Exertion (JENNINGS), Wheezing Cardiac: Palpitations Abdominal/Gastrointestinal: No Symptoms Genitourinary Symptoms: No Symptoms Musculoskeletal: No Symptoms Skin: No Symptoms Neurological: No Symptoms Psychological: Anxiety Endocrine: No Symptoms Hematologic/Lymphatic: No Symptoms Immunological/Allergic: No Symptoms - Past Medical History Pertinent Past Medical History: Yes Neurological History: Other ENT History: No Pertinent History Cardiac History: High Cholesterol Respiratory History: Asthma, Pneumonia Musculoskeletal History: No Pertinent History GI Medical History: No Pertinent History History: No Pertinent History Psycho-Social History: Anxiety, Depression, Other Female Reproductive Disorders: No Pertinent History Other Medical History: BORDERLINE PERSONALITY DISORDER, SCHIZOPHRENIA, HEAD TRAUMA, neuropathy in feet, BIPOLAR DISORDER - Past Surgical History Past Surgical History: Yes Cardiac: No Pertinent History Respiratory: No Pertinent History Gastrointestinal: Cholecystectomy Genitourinary: No Pertinent History Musculoskeletal: No Pertinent History Female Surgical History: Tubal Ligation Other Surgical History: dental extration - Social History Smoking Status: Current every day smoker How long have you smoked: 21 years Exposure to second hand smoke: Yes Drug Use: none Patient Lives Alone: No - Female History Hx Now: No - Nursing Vital Signs Nursing Vital Signs: Initial Vital Signs Pulse Rate 97 H 05/03/21 19:15 Respiratory Rate 47 H 05/03/21 19:15 O2 Sat by Pulse Oximetry 94 L 05/03/21 19:15 Pain Scale Pain Intensity 0 - Physical Exam General Appearance: mild distress, alert, anxiety Eye Exam: PERRL/EOMI, eyes nml inspection Ears, Nose, Throat Exam: hearing grossly normal, pharyngeal erythema Neck Exam: normal inspection, non-tender, full range of motion Respiratory Exam: respiratory distress, diminished breath sounds, accessory muscle use, rhonchi, wheezing Cardiovascular/Chest Exam: normal heart sounds, regular rate/rhythm Abdominal/Gastrointestinal Exam: soft, normal bowel sounds, No tenderness Extremity Exam: non-tender, normal range of motion, no calf tenderness Neurologic Exam: alert, oriented x 3, cooperative Skin Exam: normal color SpO2 Interpretation: normal SpO2: 95 O2 Delivery: Room Air - Course EKG Interpreted by Me: RATE (100), Sinus Rhythm, NORMAL AXIS, NORMAL INTERVALS, Q-wave (Anteroseptal) Ordered Tests: Active Orders 24 hr Category Date Time Status Chocolate Finisher Operator STAT Care 05/03/21 19:05 Active Clean Catch Urine Specimen STAT Care 05/03/21 20:09 Active EKG-ER Only STAT Care 05/03/21 19:05 Active Oxygen-ED Only Nasal Cannula 2 lpm Care 05/03/21 19:05 Active CHEST 1 VIEW (PORTABLE) Stat Exams 05/03/21 19:05 Taken CBC W DIFF Stat Lab 05/03/21 19:03 Completed CMP Stat Lab 05/03/21 19:03 Completed Manual Differential NC Stat Lab 05/03/21 19:03 Completed NT PRO BNP Stat Lab 05/03/21 19:03 Completed TROPONIN Q3H Lab 05/03/21 19:03 Completed TROPONIN Q3H Lab 05/03/21 22:15 Ordered TROPONIN Q3H Lab 05/04/21 01:15 Ordered TROPONIN Q3H Lab 05/04/21 04:15 Ordered TROPONIN Q3H Lab 05/04/21 07:15 Ordered Urine Triage Profile Stat Lab 05/03/21 20:20 Completed Respiratory Therapy Assessment DAILY RT 05/03/21 19:14 Active Transfer Order Routine Transfer 05/03/21 Ordered Medication Summary Discontinued Medications Generic Name Dose Route Start Last Admin Trade Name Freq PRN Reason Stop Dose Admin Albuterol/Ipratropium 3 ml 05/03/21 19:05 05/03/21 19:14 Duoneb 0.5-3 Mg/3 Ml Neb IH 05/03/21 19:06 3 ml STAT ONE Administration Albuterol/Ipratropium Confirm 05/03/21 19:09 Duoneb 0.5-3 Mg/3 Ml Neb Administered 05/03/21 19:10 Dose 3 ml IH .STK-MED ONE Methylprednisolone Sodium 0 mg 05/03/21 19:05 05/03/21 19:21 Succinate 125 mg/ Sterile IV 05/03/21 19:06 125 mg Water 2 ml STAT ONE Administration Azithromycin 500 mg in 250 mls @ 250 mls/hr 05/03/21 20:02 05/03/21 20:32 Zithromax 500 Mg/ 250 Ml Nacl Premix IV 05/03/21 21:01 250 mls/hr STAT STA 250 mls/hr Administration Ceftriaxone Sodium/Dextrose 2 g in 50 mls @ 100 mls/hr 05/03/21 20:02 1 21:50 Rocephin 2 Gm-D5w 50ml Bag IV 05/03/21 20:31 100 ml/hr STAT STA 100 mls/hr Administration Azithromycin Confirm 05/03/21 20:27 Zithromax 500 Mg/ 250 Ml Nacl Premix Administered 05/03/21 20:28 Dose 500 mg in 250 mls @ ud IV .STK-MED ONE Ceftriaxone Sodium/Dextrose Confirm 05/03/21 21:49 Rocephin 2 Gm-D5w 50ml Bag Administered 05/03/21 21:50 Dose 2 g in 50 mls @ ud IV .STK-MED ONE Methylprednisolone Sodium Succinate Confirm 05/03/21 19:15 Solu-Medrol Administered 05/03/21 19:16 Dose 125 mg .ROUTE .STK-MED ONE Sterile Water Confirm 05/03/21 19:15 Sterile H2o 10 Ml Administered 05/03/21 19:16 Dose 10 ml IJ .STK-MED ONE Lab/Rad Data: Laboratory Result Diagrams 05/03/21 19:03 05/03/21 19:03 Laboratory Results 05/03/21 05/03/21 05/03/21 Range/Units 20:20 19:03 19:03 WBC (4.0-10.5) K/mm3 RBC (4.1-5.4) M/mm3 Hgb (12.0-16.0) gm/dl Hct (35-47) % MCV (78-100) fl MCH (26-32) pg MCHC (32-36) g/dl RDW (11.5-14.0) % Plt Count (150-450) K/mm3 MPV (7.5-11.0) fl Gran % (36.0-66.0) % Eos # (Auto) (0-0.5) Absolute Lymphs (auto) (1.0-4.6) Absolute Monos (auto) (0.0-1.3) Lymphocytes % (24.0-44.0) % Monocytes % (0.0-12.0) % Eosinophils % (0.00-5.0) % Basophils % (0.0-0.4) % Absolute Granulocytes (1.4-6.9) Segmented Neutrophils (36.0-66.0) % Band Neutrophils (0.0-2.0) % Lymphocytes (Manual) (24-44) % Monocytes (Manual) (0.0-12.0) % Basophils # (0-0.4) Atypical Lymphocytes % Platelet Estimate (NORMAL) RBC Morphology Sodium 139 (137-145) mmol/L Potassium 3.6 (3.5-5.1) mmol/L Chloride 102 (98-107) mmol/L Carbon Dioxide 25 (22-30) mmol/L Anion Gap 15.9 H (5-15) MEQ/L BUN 21 H (7-17) mg/dL Creatinine 0.71 (0.52-1.04) mg/dL Estimated GFR > 60.0 ML/MIN Glucose 262 H (74-106) mg/dL Calcium 9.5 (8.4-10.2) mg/dL Total Bilirubin < 0.10 L (0.2-1.3) mg/dL AST 65 H (14-36) U/L ALT 86 H (0-35) U/L Alkaline Phosphatase 103 (38-126) U/L Troponin I < 0.012 (0.000-0.034) ng/mL NT-Pro-B Natriuret Pep 79.0 (0-450) pg/mL Serum Total Protein 7.6 (6.3-8.2) g/dL Albumin 4.3 (3.5-5.0) g/dL Urine Opiates Level NEGATIVE (NEGATIVE) Ur Methadone NEGATIVE (NEGATIVE) Urine Barbiturates NEGATIVE (NEGATIVE) Ur Phencyclidine (PCP) NEGATIVE (NEGATIVE) Urine Amphetamine NEGATIVE (NEGATIVE) U Benzodiazepine Level NEGATIVE (NEGATIVE) Urine Cocaine NEGATIVE (NEGATIVE) Urine Marijuana (THC) NEGATIVE (NEGATIVE) 05/03/21 Range/Units 19:03 WBC 15.7 H (4.0-10.5) K/mm3 RBC 5.33 (4.1-5.4) M/mm3 Hgb 13.7 (12.0-16.0) gm/dl Hct 46.1 (35-47) % MCV 86.5 (78-100) fl MCH 25.7 L (26-32) pg MCHC 29.7 L (32-36) g/dl RDW 19.8 H (11.5-14.0) % Plt Count 383 (150-450) K/mm3 MPV 8.9 (7.5-11.0) fl Gran % 89.4 H (36.0-66.0) % Eos # (Auto) 0.01 (0-0.5) Absolute Lymphs (auto) 1.51 (1.0-4.6) Absolute Monos (auto) 0.13 (0.0-1.3) Lymphocytes % 9.6 L (24.0-44.0) % Monocytes % 0.8 (0.0-12.0) % Eosinophils % 0.1 (0.00-5.0) % Basophils % 0.1 (0.0-0.4) % Absolute Granulocytes 14.00 H (1.4-6.9) Segmented Neutrophils 87 H (36.0-66.0) % Band Neutrophils 2 (0.0-2.0) % Lymphocytes (Manual) 7 L (24-44) % Monocytes (Manual) 3 (0.0-12.0) % Basophils # 0.02 (0-0.4) Atypical Lymphocytes 1 % Platelet Estimate NORMAL (NORMAL) RBC Morphology NORMAL Sodium (137-145) mmol/L Potassium (3.5-5.1) mmol/L Chloride (98-107) mmol/L Carbon Dioxide (22-30) mmol/L Anion Gap (5-15) MEQ/L BUN (7-17) mg/dL Creatinine (0.52-1.04) mg/dL Estimated GFR ML/MIN Glucose (74-106) mg/dL Calcium (8.4-10.2) mg/dL Total Bilirubin (0.2-1.3) mg/dL AST (14-36) U/L ALT (0-35) U/L Alkaline Phosphatase (38-126) U/L Troponin I (0.000-0.034) ng/mL NT-Pro-B Natriuret Pep (0-450) pg/mL Serum Total Protein (6.3-8.2) g/dL Albumin (3.5-5.0) g/dL Urine Opiates Level (NEGATIVE) Ur Methadone (NEGATIVE) Urine Barbiturates (NEGATIVE) Ur Phencyclidine (PCP) (NEGATIVE) Urine Amphetamine (NEGATIVE) U Benzodiazepine Level (NEGATIVE) Urine Cocaine (NEGATIVE) Urine Marijuana (THC) (NEGATIVE) - Progress Progress: improved Air Movement: fair Progress Note: 05/03/21 20:05 Patient was tachypneic with loud wheezing all over on presentation, given Solu- Medrol and breathing treatment, on reevaluation feeling better and currently on 2 L oxygen with sats around 96%. She still have wheezing with some crackles. Chest x-ray consistent with pneumonitis and no new changes reviewed by me, official report is pending. Started on Rocephin and Zithromax. Work-up showed white count of 15, negative initial troponin. Patient does have history of PE/DVT, after discussion with Dr. Noland, patient is started on 1 ibeth per cake Lovenox. She is being readmitted. Antibiotics given: Yes Discussed with .: Good Will see patient in: hospital (observation) Counseled pt/family regarding: lab results, diagnosis, rad results, smoking cessation - Departure Departure Disposition: Observation Clinical Impression: COPD exacerbation, Pneumonitis Pulmonary embolism Qualifiers: Pulmonary embolism type: unspecified Chronicity: acute Acute cor pulmonale presence: without acute cor pulmonale Qualified Code(s): I26.99 - Other pulmonary embolism without acute cor pulmonale Condition: Stable Critical Care Time: Yes Critical Care Time(excluding separately billable procedures): Critical 30-74 mins Referrals: ALBERTO COLÓN [Primary Care Provider] - Instructions: Chronic Obstructive Pulmonary Disease
[2021-05-03 19:14] LABS: BASOPHIL % 0.1 % (0.0-0.4); Basophil (Absolute #) 0.02 (0-0.4); Eosinophil % 0.1 % (0.00-5.0); Eosinophil (Absolute #) 0.01 (0-0.5); Hematocrit 46.1 % (35-47); Hemoglobin 13.7 gm/dl (12.0-16.0); Lymphocyte (Absolute #) 1.51 (1.0-4.6); Lymphocytes % 9.6 % (24.0-44.0); Mean Cell Volume 86.5 fl (78-100); Mean Corpuscular Hemoglobin 25.7 pg (26-32); Mean Corpuscular Hgb Concent. 29.7 g/dl (32-36); Mean Platelet Volume 8.9 fl (7.5-11.0); Monocyte (Absolute #) 0.13 (0.0-1.3); Monocytes % 0.8 % (0.0-12.0); Neutrophil % 89.4 % (36.0-66.0); Platelet Count 383 K/mm3 (150-450); Red Blood Count 5.33 M/mm3 (4.1-5.4); Red Cell Distribution Width 19.8 % (11.5-14.0); White Blood Count 15.7 K/mm3 (4.0-10.5)
[2021-05-03] MEDS ORDERED: Sterile H2O 10 ml IJ ONE (19:15)
[2021-05-03] MEDS ORDERED: solu-MEDROL ONE (19:15)
[2021-05-03 19:32] LABS: SGPT/ALT 86 U/L (0-35)
[2021-05-03 19:34] LABS: ALBUMIN 4.3 g/dL (3.5-5.0); ALKALINE PHOSPHATASE 103 U/L (38-126); ANION GAP 15.9 MEQ/L (5-15); BILIRUBIN,TOTAL < 0.10 mg/dL (0.2-1.3); BLOOD UREA NITROGEN 21 mg/dL (7-17); CHLORIDE 102 mmol/L (98-107); Calcium 9.5 mg/dL (8.4-10.2); Carbon Dioxide 25 mmol/L (22-30); Creatinine 1 0.71 mg/dL (0.52-1.04); EST GLOMERULAR FILTRATION RATE > 60.0 ML/MIN; Glucose 262 mg/dL (74-106); Potassium 3.6 mmol/L (3.5-5.1); SGOT/AST 65 U/L (14-36); SODIUM 139 mmol/L (137-145); Total Protein 7.6 g/dL (6.3-8.2)
[2021-05-03] MEDS ORDERED: Zithromax 500 MG/ 250 ML NaCl Premix 500 MG/250 ML IVPB IV STA (20:02)
[2021-05-03] MEDS ORDERED: ROCEPHIN 2 Gm-D5w 50ML BAG** 2 G/50 ML IVPB IV STA (20:02)
[2021-05-03 20:21] LABS: ATYPICAL LYMPHS 1 %; BAND 2 % (0.0-2.0); Lymphocytes 7 % (24-44); Monocyte 3 % (0.0-12.0); Neutrophils 87 % (36.0-66.0); Platelet Estimate NORMAL (NORMAL); Total Cells Counted 100
[2021-05-03] MEDS ORDERED: Zithromax 500 MG/ 250 ML NaCl Premix 500 MG/250 ML IVPB IV ONE (20:27)
[2021-05-03 20:37] LABS: Amphetamine,Urine NEGATIVE (NEGATIVE); Barbiturate,Urine NEGATIVE (NEGATIVE); Benzodiazepine,Urine NEGATIVE (NEGATIVE); Cocaine,Urine NEGATIVE (NEGATIVE); Methadone,Urine NEGATIVE (NEGATIVE); Opiate,Urine NEGATIVE (NEGATIVE); PCP,Urine NEGATIVE (NEGATIVE); THC,Urine NEGATIVE (NEGATIVE)
[2021-05-03] MEDS ORDERED: ROCEPHIN 2 Gm-D5w 50ML BAG** 2 G/50 ML IVPB IV ONE (21:49)
[2021-05-03] MEDS ORDERED: ENOXAPARIN SODIUM SQ SCH (22:41)
[2021-05-03] MEDS ORDERED: Zofran 4 MG/2 ML VIAL IV PRN (22:41)
[2021-05-03] MEDS ORDERED: TYLENOL 325 MG PO PRN (22:41)
[2021-05-03] MEDS: DUONEB 0.5-3 MG/3 ml Neb IH SCH (23:34)
[2021-05-04] MEDS ORDERED: solu-MEDROL ONE ×2 (00:50→05:33)
[2021-05-04] MEDS ORDERED: Sterile H2O 10 ml IJ ONE (00:50)
[2021-05-04] MEDS: solu-MEDROL 60 MG, Sterile H2O 10 ml 2 ML IV SCH ×8 (00:58→18:08)
[2021-05-04] MEDS: DUONEB 0.5-3 MG/3 ml Neb IH SCH ×6 (03:49→22:43)
[2021-05-04 05:43] LABS: Hematocrit 45.9 % (35-47); Hemoglobin 13.7 gm/dl (12.0-16.0); Mean Corpuscular Hemoglobin 25.7 pg (26-32); Mean Corpuscular Hgb Concent. 29.8 g/dl (32-36); Mean Platelet Volume 9.1 fl (7.5-11.0); Platelet Count 427 K/mm3 (150-450); Red Blood Count 5.34 M/mm3 (4.1-5.4); Red Cell Distribution Width 19.5 % (11.5-14.0); White Blood Count 19.6 K/mm3 (4.0-10.5)
[2021-05-04 06:05] LABS: ALBUMIN 4.1 g/dL (3.5-5.0); ALKALINE PHOSPHATASE 98 U/L (38-126); ANION GAP 15.5 MEQ/L (5-15); BILIRUBIN,TOTAL < 0.10 mg/dL (0.2-1.3); BLOOD UREA NITROGEN 17 mg/dL (7-17); CHLORIDE 103 mmol/L (98-107); Calcium 9.6 mg/dL (8.4-10.2); Carbon Dioxide 25 mmol/L (22-30); Creatinine 1 0.55 mg/dL (0.52-1.04); EST GLOMERULAR FILTRATION RATE > 60.0 ML/MIN; Glucose 174 mg/dL (74-106); Potassium 3.7 mmol/L (3.5-5.1); SGOT/AST 39 U/L (14-36); SGPT/ALT 75 U/L (0-35); SODIUM 140 mmol/L (137-145); Total Protein 7.4 g/dL (6.3-8.2)
[2021-05-04 07:43] LABS: ANISOCYTOSIS 1+; BAND 2 % (0.0-2.0); Lymphocytes 15 % (24-44); Monocyte 2 % (0.0-12.0); Neutrophils 81 % (36.0-66.0); Platelet Estimate NORMAL (NORMAL); Total Cells Counted 100
--- NOTE | 2021-05-04 07:54 | PCM.HP ---
History of Present Illness - Chief Complaint Chief Complaint: PE, Pneumonitis, COPD Exacerbation History of Present Illness: is a 40 year old female who presented with cough and shortness of breath, she is on nasal cannula this morning, still feels short of breath. she is cursing profusely during interview about her phone ringing and being too far from her bed, the phone has been moved closer now but she repeatedly curses about it, her cough is nonproductive, she has no fever. she states she feels terrible but also wants to know how long she will be here. - Review of Systems Constitutional: No Fever, No Chills Respiratory: Cough, Short Of Breath, Wheezing Cardiac: No Chest Pain, No Edema, No Syncope Abdominal/Gastrointestinal: No Abdominal Pain, No Nausea, No Vomiting, No Diarrhea Genitourinary Symptoms: No Dysuria Skin: No Rash All Other Systems: Reviewed and Negative Medications & Allergies Home Medications: Home Medication List clonazePAM [Klonopin] 1 mg PO TID 06/04/17 [History Confirmed 05/03/21] Albuterol Sulfate [Ventolin Hfa] 18 gm IN UD 01/21/18 [History Confirmed 05/03/21] Aripiprazole Lauroxil [Aristada] 882 mg IM UD 01/21/18 [History Confirmed 05/03/21] Benztropine Mesylate 1 mg PO DAILY 01/21/18 [History Confirmed 05/03/21] haloperidoL [Haloperidol] 2 mg PO QHS 01/21/18 [History Confirmed 05/03/21] Cariprazine HCl [Vraylar] 6 mg PO DAILY 05/01/21 [History Confirmed 05/03/21] Apixaban [Eliquis] 5 mg PO BID #1 tab.ds.pk 05/03/21 [Rx Confirmed 05/03/21] Allergies/Adverse Reactions: Allergies Allergy/AdvReac Type Severity Reaction Status Date / Time No Known Drug Allergies Allergy Verified 05/03/21 23:10 - Past Medical History Past Medical History: Yes Neurological History: Other ENT History: No Pertinent History Cardiac History: High Cholesterol Respiratory History: Asthma, Pneumonia, Pulmonary Embolism Endocrine Medical History: No Pertinent History Musculoskelatal History: No Pertinent History GI Medical History: No Pertinent History History: No Pertinent History Pyscho-Social History: Anxiety, Depression, Other Reproductive Disorders: No Pertinent History Comment: BORDERLINE PERSONALITY DISORDER, SCHIZOPHRENIA, HEAD TRAUMA, neuropathy in feet, BIPOLAR DISORDER - Female History Are you now?: No - Past Surgical History Past Surgical History: Yes Cardiac History: No Pertinent History Respiratory Surgery: No Pertinent History GI Surgical History: Cholecystectomy Genitourinary Surgical Hx: No Pertinent History Musculskeletal Surgical Hx: No Pertinent History Female Surgical History: Tubal Ligation Other Surgical History: dental extration - Social History Smoking Status: Current every day smoker How long have you smoked: 21 yrs Exposure to second hand smoke: Yes Alcohol: None Drug Use: none - Physical Exam Vital Signs: Vital Signs - 24 hr Temp Pulse Resp BP BP Pulse Ox 05/04/21 07:40 98.6 F 91 H 28 H 121/73 93 L 05/04/21 06:56 91 H 28 H 93 L 05/04/21 04:00 97.8 F 89 21 129/70 92 L 05/04/21 03:49 89 33 H 90 L 05/03/21 23:35 98 H 30 H 98 05/03/21 23:10 98.6 F 95 H 28 H 124/57 93 L 05/03/21 22:40 98 H 30 H 90/63 98 05/03/21 22:24 95 05/03/21 22:00 100 H 18 90/63 98 05/03/21 21:13 100 H 24 123/71 94 L 05/03/21 20:19 98 H 24 94/59 95 05/03/21 19:15 97 H 47 H 94 L General Appearance: no apparent distress, alert Neurologic Exam: alert, oriented x 3, cooperative, normal mood/affect, nml cerebellar function, nml station & gait, sensation nml, No motor deficits Respiratory Exam: normal breath sounds, lungs clear, No respiratory distress Cardiovascular Exam: regular rate/rhythm, normal heart sounds, normal peripheral pulses Gastrointestinal/Abdomen Exam: soft, normal bowel sounds, No tenderness, No mass Extremity Exam: normal inspection, normal range of motion, pelvis stable Skin Exam: normal color, warm, dry, No rash Results - Labs Lab/Micro Results: Lab Results-Last 24 Hours 05/03/21 05/03/21 05/03/21 Range/Units 19:03 19:03 19:03 WBC 15.7 H (4.0-10.5) K/mm3 RBC 5.33 (4.1-5.4) M/mm3 Hgb 13.7 (12.0-16.0) gm/dl Hct 46.1 (35-47) % MCV 86.5 (78-100) fl MCH 25.7 L (26-32) pg MCHC 29.7 L (32-36) g/dl RDW 19.8 H (11.5-14.0) % Plt Count 383 (150-450) K/mm3 MPV 8.9 (7.5-11.0) fl Gran % 89.4 H (36.0-66.0) % Eos # (Auto) 0.01 (0-0.5) Absolute Lymphs (auto) 1.51 (1.0-4.6) Absolute Monos (auto) 0.13 (0.0-1.3) Lymphocytes % 9.6 L (24.0-44.0) % Monocytes % 0.8 (0.0-12.0) % Eosinophils % 0.1 (0.00-5.0) % Basophils % 0.1 (0.0-0.4) % Absolute Granulocytes 14.00 H (1.4-6.9) Segmented Neutrophils 87 H (36.0-66.0) % Band Neutrophils 2 (0.0-2.0) % Lymphocytes (Manual) 7 L (24-44) % Monocytes (Manual) 3 (0.0-12.0) % Basophils # 0.02 (0-0.4) Atypical Lymphocytes 1 % Platelet Estimate NORMAL (NORMAL) RBC Morphology NORMAL Anisocytosis Sodium 139 (137-145) mmol/L Potassium 3.6 (3.5-5.1) mmol/L Chloride 102 (98-107) mmol/L Carbon Dioxide 25 (22-30) mmol/L Anion Gap 15.9 H (5-15) MEQ/L BUN 21 H (7-17) mg/dL Creatinine 0.71 (0.52-1.04) mg/dL Estimated GFR > 60.0 ML/MIN Glucose 262 H (74-106) mg/dL POC Glucometer (74 to 106) mg/dL Calcium 9.5 (8.4-10.2) mg/dL Total Bilirubin < 0.10 L (0.2-1.3) mg/dL AST 65 H (14-36) U/L ALT 86 H (0-35) U/L Alkaline Phosphatase 103 (38-126) U/L Troponin I < 0.012 (0.000-0.034) ng/mL NT-Pro-B Natriuret Pep 79.0 (0-450) pg/mL Serum Total Protein 7.6 (6.3-8.2) g/dL Albumin 4.3 (3.5-5.0) g/dL Urine Opiates Level (NEGATIVE) Ur Methadone (NEGATIVE) Urine Barbiturates (NEGATIVE) Ur Phencyclidine (PCP) (NEGATIVE) Urine Amphetamine (NEGATIVE) U Benzodiazepine Level (NEGATIVE) Urine Cocaine (NEGATIVE) Urine Marijuana (THC) (NEGATIVE) 05/03/21 05/03/21 05/04/21 Range/Units 20:20 22:15 01:24 WBC (4.0-10.5) K/mm3 RBC (4.1-5.4) M/mm3 Hgb (12.0-16.0) gm/dl Hct (35-47) % MCV (78-100) fl MCH (26-32) pg MCHC (32-36) g/dl RDW (11.5-14.0) % Plt Count (150-450) K/mm3 MPV (7.5-11.0) fl Gran % (36.0-66.0) % Eos # (Auto) (0-0.5) Absolute Lymphs (auto) (1.0-4.6) Absolute Monos (auto) (0.0-1.3) Lymphocytes % (24.0-44.0) % Monocytes % (0.0-12.0) % Eosinophils % (0.00-5.0) % Basophils % (0.0-0.4) % Absolute Granulocytes (1.4-6.9) Segmented Neutrophils (36.0-66.0) % Band Neutrophils (0.0-2.0) % Lymphocytes (Manual) (24-44) % Monocytes (Manual) (0.0-12.0) % Basophils # (0-0.4) Atypical Lymphocytes % Platelet Estimate (NORMAL) RBC Morphology Anisocytosis Sodium (137-145) mmol/L Potassium (3.5-5.1) mmol/L Chloride (98-107) mmol/L Carbon Dioxide (22-30) mmol/L Anion Gap (5-15) MEQ/L BUN (7-17) mg/dL Creatinine (0.52-1.04) mg/dL Estimated GFR ML/MIN Glucose (74-106) mg/dL POC Glucometer (74 to 106) mg/dL Calcium (8.4-10.2) mg/dL Total Bilirubin (0.2-1.3) mg/dL AST (14-36) U/L ALT (0-35) U/L Alkaline Phosphatase (38-126) U/L Troponin I < 0.012 < 0.012 (0.000-0.034) ng/mL NT-Pro-B Natriuret Pep (0-450) pg/mL Serum Total Protein (6.3-8.2) g/dL Albumin (3.5-5.0) g/dL Urine Opiates Level NEGATIVE (NEGATIVE) Ur Methadone NEGATIVE (NEGATIVE) Urine Barbiturates NEGATIVE (NEGATIVE) Ur Phencyclidine (PCP) NEGATIVE (NEGATIVE) Urine Amphetamine NEGATIVE (NEGATIVE) U Benzodiazepine Level NEGATIVE (NEGATIVE) Urine Cocaine NEGATIVE (NEGATIVE) Urine Marijuana (THC) NEGATIVE (NEGATIVE) 05/04/21 05/04/21 05/04/21 Range/Units 05:37 05:37 05:37 WBC 19.6 H (4.0-10.5) K/mm3 RBC 5.34 (4.1-5.4) M/mm3 Hgb 13.7 (12.0-16.0) gm/dl Hct 45.9 (35-47) % MCV 86.0 (78-100) fl MCH 25.7 L (26-32) pg MCHC 29.8 L (32-36) g/dl RDW 19.5 H (11.5-14.0) % Plt Count 427 (150-450) K/mm3 MPV 9.1 (7.5-11.0) fl Gran % (36.0-66.0) % Eos # (Auto) (0-0.5) Absolute Lymphs (auto) (1.0-4.6) Absolute Monos (auto) (0.0-1.3) Lymphocytes % (24.0-44.0) % Monocytes % (0.0-12.0) % Eosinophils % (0.00-5.0) % Basophils % (0.0-0.4) % Absolute Granulocytes (1.4-6.9) Segmented Neutrophils 81 H (36.0-66.0) % Band Neutrophils 2 (0.0-2.0) % Lymphocytes (Manual) 15 L (24-44) % Monocytes (Manual) 2 (0.0-12.0) % Basophils # (0-0.4) Atypical Lymphocytes % Platelet Estimate NORMAL (NORMAL) RBC Morphology ABNORMAL Anisocytosis 1+ Sodium 140 (137-145) mmol/L Potassium 3.7 (3.5-5.1) mmol/L Chloride 103 (98-107) mmol/L Carbon Dioxide 25 (22-30) mmol/L Anion Gap 15.5 H (5-15) MEQ/L BUN 17 (7-17) mg/dL Creatinine 0.55 (0.52-1.04) mg/dL Estimated GFR > 60.0 ML/MIN Glucose 174 H (74-106) mg/dL POC Glucometer (74 to 106) mg/dL Calcium 9.6 (8.4-10.2) mg/dL Total Bilirubin < 0.10 L (0.2-1.3) mg/dL AST 39 H (14-36) U/L ALT 75 H (0-35) U/L Alkaline Phosphatase 98 (38-126) U/L Troponin I < 0.012 (0.000-0.034) ng/mL NT-Pro-B Natriuret Pep (0-450) pg/mL Serum Total Protein 7.4 (6.3-8.2) g/dL Albumin 4.1 (3.5-5.0) g/dL Urine Opiates Level (NEGATIVE) Ur Methadone (NEGATIVE) Urine Barbiturates (NEGATIVE) Ur Phencyclidine (PCP) (NEGATIVE) Urine Amphetamine (NEGATIVE) U Benzodiazepine Level (NEGATIVE) Urine Cocaine (NEGATIVE) Urine Marijuana (THC) (NEGATIVE) 05/04/21 Range/Units 07:02 WBC (4.0-10.5) K/mm3 RBC (4.1-5.4) M/mm3 Hgb (12.0-16.0) gm/dl Hct (35-47) % MCV (78-100) fl MCH (26-32) pg MCHC (32-36) g/dl RDW (11.5-14.0) % Plt Count (150-450) K/mm3 MPV (7.5-11.0) fl Gran % (36.0-66.0) % Eos # (Auto) (0-0.5) Absolute Lymphs (auto) (1.0-4.6) Absolute Monos (auto) (0.0-1.3) Lymphocytes % (24.0-44.0) % Monocytes % (0.0-12.0) % Eosinophils % (0.00-5.0) % Basophils % (0.0-0.4) % Absolute Granulocytes (1.4-6.9) Segmented Neutrophils (36.0-66.0) % Band Neutrophils (0.0-2.0) % Lymphocytes (Manual) (24-44) % Monocytes (Manual) (0.0-12.0) % Basophils # (0-0.4) Atypical Lymphocytes % Platelet Estimate (NORMAL) RBC Morphology Anisocytosis Sodium (137-145) mmol/L Potassium (3.5-5.1) mmol/L Chloride (98-107) mmol/L Carbon Dioxide (22-30) mmol/L Anion Gap (5-15) MEQ/L BUN (7-17) mg/dL Creatinine (0.52-1.04) mg/dL Estimated GFR ML/MIN Glucose (74-106) mg/dL POC Glucometer 158 H (74 to 106) mg/dL Calcium (8.4-10.2) mg/dL Total Bilirubin (0.2-1.3) mg/dL AST (14-36) U/L ALT (0-35) U/L Alkaline Phosphatase (38-126) U/L Troponin I (0.000-0.034) ng/mL NT-Pro-B Natriuret Pep (0-450) pg/mL Serum Total Protein (6.3-8.2) g/dL Albumin (3.5-5.0) g/dL Urine Opiates Level (NEGATIVE) Ur Methadone (NEGATIVE) Urine Barbiturates (NEGATIVE) Ur Phencyclidine (PCP) (NEGATIVE) Urine Amphetamine (NEGATIVE) U Benzodiazepine Level (NEGATIVE) Urine Cocaine (NEGATIVE) Urine Marijuana (THC) (NEGATIVE) - Radiology Impressions Radiology Exams & Impressions: Radiology Procedures Category Date Time Status CHEST 1 VIEW (PORTABLE) Stat Exams 05/03/21 19:05 Taken - Other Procedures and Tests Respiratory Therapy 05/03/21 19:14 Respiratory Therapy Assessment DAILY 05/03/21 22:41 Oxygen Nasal Cannula 2 lpm Assessment/Plan (1) COPD exacerbation Current Visit: Yes Status: Acute Assessment & Plan: continue rocephin/zithromax and IV solu-medrol at this time. oxygen and nebs ordered Code(s): J44.1 - CHRONIC OBSTRUCTIVE PULMONARY DISEASE W (ACUTE) EXACERBATION (2) Pulmonary embolism Current Visit: Yes Status: Acute Qualifiers: Pulmonary embolism type: unspecified Chronicity: acute Acute cor pulmonale presence: without acute cor pulmonale Qualified Code(s): I26.99 - Other pulmonary embolism without acute cor pulmonale Assessment & Plan: continue eliquis Code(s): I26.99 - OTHER PULMONARY EMBOLISM WITHOUT ACUTE COR PULMONALE (3) Bipolar 1 disorder, depressed Current Visit: No Status: Chronic Assessment & Plan: continue home meds
--- NOTE | 2021-05-04 08:48 | XRAY ---
Indication: Short of breath. Comparison: May 01, 2021. Portable chest slightly less inflated and remains clear. Heart not enlarged. No new/acute cardiopulmonary abnormalities.
[2021-05-04] MEDS ORDERED: ARIPIPRAZOLE LAUROXIL 882 MG IM SCH (09:15)
[2021-05-04] MEDS ORDERED: MEDICATION INTERVENTION PO SCH (09:30)
[2021-05-04] MEDS: ELIQUIS 2.5 MG TABLET PO SCH ×2 (09:40→20:53)
[2021-05-04] MEDS: COGENTIN 0.5 MG PO SCH (09:41)
[2021-05-04] MEDS: PROTONIX 40 MG IV IV SCH (09:43)
[2021-05-04] MEDS ORDERED: clonazePAM PO SCH (10:00)
[2021-05-04] MEDS ORDERED: NON-FORMULARY ITEM (Apixaban [Eliquis] 5 MG) PO SCH (10:00)
[2021-05-04] MEDS ORDERED: CARIPRAZINE HCL 6 MG PO SCH (10:00)
[2021-05-04] MEDS ORDERED: NON-FORMULARY ITEM (Clonazepam [Klonopin] 1 MG) PO SCH (10:00)
[2021-05-04] MEDS: NICODERM CQ 14 MG TOP SCH (10:35)
[2021-05-04] MEDS ORDERED: ENOXAPARIN SODIUM SQ SCH (11:00)
[2021-05-04] MEDS: Ativan 2 MG/1 ML VIAL IV PRN ×3 (14:43→22:44)
[2021-05-04] MEDS: HALDOL 1 MG PO SCH (20:53)
[2021-05-04] MEDS: HUMALOG SQ PRN (21:43)
[2021-05-04] MEDS ORDERED: HALOPERIDOL 2 MG PO SCH (22:00)
[2021-05-04] MEDS ORDERED: ROCEPHIN 1 Gm-D5w 50 ml Bag** 1 G/50 ML IVPB IV SCH (22:00)
[2021-05-04] MEDS ORDERED: Zithromax 500 MG/ 250 ML NaCl Premix 500 MG/250 ML IVPB IV SCH (22:00)
[2021-05-05] MEDS: solu-MEDROL 60 MG, Sterile H2O 10 ml 2 ML IV SCH ×10 (02:00→23:50)
[2021-05-05] MEDS: DUONEB 0.5-3 MG/3 ml Neb IH SCH ×6 (02:40→22:54)
[2021-05-05] MEDS: Ativan 2 MG/1 ML VIAL IV PRN ×5 (03:43→22:49)
[2021-05-05 05:55] LABS: Hematocrit 44.6 % (35-47); Hemoglobin 13.1 gm/dl (12.0-16.0); Mean Cell Volume 86.8 fl (78-100); Mean Corpuscular Hemoglobin 25.5 pg (26-32); Mean Corpuscular Hgb Concent. 29.4 g/dl (32-36); Mean Platelet Volume 9.2 fl (7.5-11.0); Platelet Count 411 K/mm3 (150-450); Red Blood Count 5.14 M/mm3 (4.1-5.4); Red Cell Distribution Width 19.2 % (11.5-14.0)
[2021-05-05 06:06] LABS: ANION GAP 11.7 MEQ/L (5-15); BLOOD UREA NITROGEN 17 mg/dL (7-17); CHLORIDE 103 mmol/L (98-107); Calcium 9.2 mg/dL (8.4-10.2); Carbon Dioxide 29 mmol/L (22-30); Creatinine 1 0.53 mg/dL (0.52-1.04); EST GLOMERULAR FILTRATION RATE > 60.0 ML/MIN; Glucose 138 mg/dL (74-106); Potassium 4.1 mmol/L (3.5-5.1); SODIUM 140 mmol/L (137-145)
[2021-05-05 06:12] LABS: White Blood Count 26.6 K/mm3 (4.0-10.5)
[2021-05-05 07:25] LABS: ANISOCYTOSIS 1+; BAND 7 % (0.0-2.0); Lymphocytes 7 % (24-44); Monocyte 1 % (0.0-12.0); Neutrophils 85 % (36.0-66.0); Platelet Estimate NORMAL (NORMAL); Total Cells Counted 100
[2021-05-05 07:27] LABS: Absolute Neutrophil Ct (ANC) 24.45 (1.4-6.9)
[2021-05-05] MEDS: Zosyn 3.375 GM Vial 3.375 GM in Sodium Chloride 100ML MINI-BAG PLUS 100 ML IV SCH ×4 (07:58→23:50)
[2021-05-05] MEDS: NICODERM CQ 14 MG TOP SCH (08:02)
[2021-05-05] MEDS: COGENTIN 0.5 MG PO SCH (08:39)
[2021-05-05] MEDS: ENOXAPARIN SODIUM SQ SCH ×2 (08:39→20:57)
[2021-05-05] MEDS: PROTONIX 40 MG IV IV SCH (08:41)
--- NOTE | 2021-05-05 08:55 | PCM.NOTE ---
Date and Time: 05/05/21 0850 Subjective Assessment: Pt is again anxious to go home - to smoke, but also to spend time with her daughter, who is leaving for college in 6 weeks (in [place]). She is tearful when speaking of her. She is on 6L oximask. Tolerating po. - Review of Systems Constitutional: No Fever Respiratory: Cough, Short Of Breath Objective Exam General Appearance: no apparent distress, alert Neurologic Exam: oriented x 3, cooperative, other (limited affect) Skin Exam: normal color, warm, dry, No rash Eye Exam: eyes nml inspection Ears, Nose, Throat Exam: moist mucous membranes Neck Exam: normal inspection Respiratory Exam: lungs clear, diminished breath sounds (fair air exchange), No crackles/rales, No rhonchi, No wheezing Cardiovascular Exam: regular rate/rhythm, normal heart sounds, No murmur Extremity Exam: normal inspection, No pedal edema, No swelling OBJECTIVE DATA Vital Signs: Vital Signs - 24 hr Temp Pulse Resp BP BP Pulse Ox 05/05/21 07:30 97.6 F 90 24 129/70 128/61 95 05/05/21 06:48 96 H 28 H 93 L 05/05/21 04:00 97.5 F 92 H 24 136/75 89 L 05/05/21 02:43 80 24 89 L 05/05/21 00:00 98.1 F 92 H 22 110/64 94 L 05/04/21 22:44 95 H 28 H 94 L 05/04/21 20:00 98.1 F 104 H 22 139/75 96 05/04/21 19:21 101 H 32 H 95 05/04/21 16:00 97.7 F 103 H 40 H 128/82 96 05/04/21 14:57 108 H 32 H 89 L 05/04/21 12:00 98.8 F 99 H 30 H 133/85 92 L 05/04/21 11:24 94 L Pain Assessment - Last Documented Pain Intensity 0 Intake and Output: Intake & Output 05/02/21 05/03/21 05/04/21 05/05/21 11:59 11:59 11:59 11:59 Intake Total 1160 2500 Balance 1160 2500 Weight 134.2 kg Lab Results: Lab Results-Last 24 Hours 05/04/21 05/04/21 05/04/21 Range/Units 05:37 11:03 16:31 WBC (4.0-10.5) K/mm3 RBC (4.1-5.4) M/mm3 Hgb (12.0-16.0) gm/dl Hct (35-47) % MCV (78-100) fl MCH (26-32) pg MCHC (32-36) g/dl RDW (11.5-14.0) % Plt Count (150-450) K/mm3 MPV (7.5-11.0) fl Absolute Granulocytes (1.4-6.9) Segmented Neutrophils (36.0-66.0) % Band Neutrophils (0.0-2.0) % Lymphocytes (Manual) (24-44) % Monocytes (Manual) (0.0-12.0) % Platelet Estimate (NORMAL) RBC Morphology Anisocytosis Sodium (137-145) mmol/L Potassium (3.5-5.1) mmol/L Chloride (98-107) mmol/L Carbon Dioxide (22-30) mmol/L Anion Gap (5-15) MEQ/L BUN (7-17) mg/dL Creatinine (0.52-1.04) mg/dL Estimated GFR ML/MIN Glucose (74-106) mg/dL POC Glucometer 194 H 166 H (74 to 106) mg/dL Hemoglobin A1c 5.64 (4.5-6.0) % Calcium (8.4-10.2) mg/dL 05/04/21 05/05/21 05/05/21 Range/Units 20:31 04:45 05:00 WBC 26.6 H* (4.0-10.5) K/mm3 RBC 5.14 (4.1-5.4) M/mm3 Hgb 13.1 (12.0-16.0) gm/dl Hct 44.6 (35-47) % MCV 86.8 (78-100) fl MCH 25.5 L (26-32) pg MCHC 29.4 L (32-36) g/dl RDW 19.2 H (11.5-14.0) % Plt Count 411 (150-450) K/mm3 MPV 9.2 (7.5-11.0) fl Absolute Granulocytes 24.45 H (1.4-6.9) Segmented Neutrophils 85 H (36.0-66.0) % Band Neutrophils 7 H (0.0-2.0) % Lymphocytes (Manual) 7 L (24-44) % Monocytes (Manual) 1 (0.0-12.0) % Platelet Estimate NORMAL (NORMAL) RBC Morphology ABNORMAL Anisocytosis 1+ Sodium 140 (137-145) mmol/L Potassium 4.1 (3.5-5.1) mmol/L Chloride 103 (98-107) mmol/L Carbon Dioxide 29 (22-30) mmol/L Anion Gap 11.7 (5-15) MEQ/L BUN 17 (7-17) mg/dL Creatinine 0.53 (0.52-1.04) mg/dL Estimated GFR > 60.0 ML/MIN Glucose 138 H (74-106) mg/dL POC Glucometer 215 H (74 to 106) mg/dL Hemoglobin A1c (4.5-6.0) % Calcium 9.2 (8.4-10.2) mg/dL 05/05/21 Range/Units 07:16 WBC (4.0-10.5) K/mm3 RBC (4.1-5.4) M/mm3 Hgb (12.0-16.0) gm/dl Hct (35-47) % MCV (78-100) fl MCH (26-32) pg MCHC (32-36) g/dl RDW (11.5-14.0) % Plt Count (150-450) K/mm3 MPV (7.5-11.0) fl Absolute Granulocytes (1.4-6.9) Segmented Neutrophils (36.0-66.0) % Band Neutrophils (0.0-2.0) % Lymphocytes (Manual) (24-44) % Monocytes (Manual) (0.0-12.0) % Platelet Estimate (NORMAL) RBC Morphology Anisocytosis Sodium (137-145) mmol/L Potassium (3.5-5.1) mmol/L Chloride (98-107) mmol/L Carbon Dioxide (22-30) mmol/L Anion Gap (5-15) MEQ/L BUN (7-17) mg/dL Creatinine (0.52-1.04) mg/dL Estimated GFR ML/MIN Glucose (74-106) mg/dL POC Glucometer 169 H (74 to 106) mg/dL Hemoglobin A1c (4.5-6.0) % Calcium (8.4-10.2) mg/dL Radiology Exams: Radiology Procedures Category Date Time Status CHEST 1 VIEW (PORTABLE) Routine Exams 05/05/21 08:48 Ordered CHEST 1 VIEW (PORTABLE) Stat Exams 05/03/21 19:05 Completed Assessment/Plan (1) Pneumonitis Current Visit: Yes Status: Acute Assessment & Plan: Increased O2 requirement (6L Oximask). She had elevated WBC this morning, called to Dr. Navarro, who changed her antibiotic from rocephin and zithromax to Unasyn, thank you. Recheck in a.m. Dr. Mcdowell contacted; will see pt tomorrow. Code(s): J18.9 - PNEUMONIA, UNSPECIFIED ORGANISM (2) Pulmonary embolism Current Visit: Yes Status: Acute Qualifiers: Pulmonary embolism type: unspecified Chronicity: acute Acute cor pulmonale presence: without acute cor pulmonale Qualified Code(s): I26.99 - Other pulmonary embolism without acute cor pulmonale Assessment & Plan: on lovenox, therapeutic dose. Code(s): I26.99 - OTHER PULMONARY EMBOLISM WITHOUT ACUTE COR PULMONALE (3) Anxiety Current Visit: No Status: Chronic Assessment & Plan: increased her ativan to 1mg q4h. Code(s): F41.9 - ANXIETY DISORDER, UNSPECIFIED
--- NOTE | 2021-05-05 09:55 | XRAY ---
Indication: Short of breath. Hypoxia. Comparison: May 03, 2021. Portable apical lordotic chest remains slightly underinflated again without focal infiltrate, consolidation, or large effusion. Heart borderline enlarged. No new/acute abnormalities.
[2021-05-05] MEDS: HUMALOG SQ PRN (12:21)
[2021-05-05] MEDS: PATIENT OWN MEDICATION PO SCH (16:33)
[2021-05-05] MEDS: HALDOL 1 MG PO SCH (22:49)
[2021-05-06] MEDS: DUONEB 0.5-3 MG/3 ml Neb IH SCH ×6 (03:03→22:53)
[2021-05-06] MEDS: Zosyn 3.375 GM Vial 3.375 GM in Sodium Chloride 100ML MINI-BAG PLUS 100 ML IV SCH ×4 (05:53→23:50)
[2021-05-06] MEDS: solu-MEDROL 60 MG, Sterile H2O 10 ml 2 ML IV SCH ×8 (05:53→23:49)
[2021-05-06 06:11] LABS: Hematocrit 44.2 % (35-47); Mean Cell Volume 87.4 fl (78-100); Mean Corpuscular Hemoglobin 25.7 pg (26-32); Mean Corpuscular Hgb Concent. 29.4 g/dl (32-36); Mean Platelet Volume 9.1 fl (7.5-11.0); Platelet Count 423 K/mm3 (150-450); Red Blood Count 5.06 M/mm3 (4.1-5.4); White Blood Count 24.5 K/mm3 (4.0-10.5)
[2021-05-06 06:20] LABS: ALBUMIN 3.7 g/dL (3.5-5.0); ALKALINE PHOSPHATASE 81 U/L (38-126); BILIRUBIN,TOTAL < 0.10 mg/dL (0.2-1.3); BLOOD UREA NITROGEN 16 mg/dL (7-17); CHLORIDE 101 mmol/L (98-107); Calcium 9.1 mg/dL (8.4-10.2); Carbon Dioxide 29 mmol/L (22-30); Creatinine 1 0.56 mg/dL (0.52-1.04); EST GLOMERULAR FILTRATION RATE > 60.0 ML/MIN; Glucose 184 mg/dL (74-106); Potassium 3.7 mmol/L (3.5-5.1); SGOT/AST 28 U/L (14-36); SGPT/ALT 60 U/L (0-35); SODIUM 140 mmol/L (137-145); Total Protein 6.6 g/dL (6.3-8.2)
[2021-05-06 06:29] LABS: Lymphocytes 10 % (24-44); Monocyte 1 % (0.0-12.0); Neutrophils 89 % (36.0-66.0); Platelet Estimate NORMAL (NORMAL); Total Cells Counted 100
[2021-05-06] MEDS: Ativan 2 MG/1 ML VIAL IV PRN ×5 (09:00→20:28)
[2021-05-06] MEDS: NICODERM CQ 14 MG TOP SCH (10:49)
[2021-05-06] MEDS: PROTONIX 40 MG IV IV SCH (10:50)
[2021-05-06] MEDS: PATIENT OWN MEDICATION PO SCH (10:51)
[2021-05-06] MEDS: ENOXAPARIN SODIUM SQ SCH ×2 (10:51→21:28)
[2021-05-06] MEDS: COGENTIN 0.5 MG PO SCH (10:52)
--- NOTE | 2021-05-06 12:01 | PCM.NOTE ---
Date and Time: 05/06/21 1150 Subjective Assessment: Patient is coughing up clear to yellow mucus sitting at the bedside teary wants to go home. "darnell can bring me oxygen". WBC 25007 was 39679 yesterday.She is on solumedrol and IV Zosyn,is afebrile.O2 6L rebreather sats at 92%. OBJECTIVE DATA Vital Signs: Vital Signs - 24 hr Temp Pulse Resp BP BP Pulse Ox 05/06/21 10:48 94 L 05/06/21 10:33 91 H 26 H 97 05/06/21 07:35 98.1 F 89 28 H 150/94 92 L 05/06/21 06:35 89 28 H 92 L 05/06/21 04:00 97.4 F 84 23 144/76 94 L 05/06/21 03:03 84 23 94 L 05/05/21 23:52 98.0 F 84 23 143/80 95 05/05/21 22:54 84 23 95 05/05/21 19:46 99.6 F 95 H 22 122/70 93 L 05/05/21 19:11 92 H 22 93 L 05/05/21 16:00 97.6 F 100 H 26 H 142/94 96 05/05/21 14:29 100 H 26 H 90 L Pain Assessment - Last Documented Pain Intensity 0 Intake and Output: Intake & Output 05/03/21 05/04/21 05/05/21 05/06/21 11:59 11:59 11:59 11:59 Intake Total 1160 3220 1686 Balance 1160 3220 1686 Weight 134.2 kg 135.8 kg Lab Results: Lab Results-Last 24 Hours 05/05/21 05/05/21 05/06/21 Range/Units 16:25 20:41 05:50 WBC 24.5 H (4.0-10.5) K/mm3 RBC 5.06 (4.1-5.4) M/mm3 Hgb 13.0 (12.0-16.0) gm/dl Hct 44.2 (35-47) % MCV 87.4 (78-100) fl MCH 25.7 L (26-32) pg MCHC 29.4 L (32-36) g/dl RDW 19.0 H (11.5-14.0) % Plt Count 423 (150-450) K/mm3 MPV 9.1 (7.5-11.0) fl Segmented Neutrophils 89 H (36.0-66.0) % Lymphocytes (Manual) 10 L (24-44) % Monocytes (Manual) 1 (0.0-12.0) % Platelet Estimate NORMAL (NORMAL) RBC Morphology NORMAL Sodium (137-145) mmol/L Potassium (3.5-5.1) mmol/L Chloride (98-107) mmol/L Carbon Dioxide (22-30) mmol/L Anion Gap (5-15) MEQ/L BUN (7-17) mg/dL Creatinine (0.52-1.04) mg/dL Estimated GFR ML/MIN Glucose (74-106) mg/dL POC Glucometer 336 H 163 H (74 to 106) mg/dL Calcium (8.4-10.2) mg/dL Total Bilirubin (0.2-1.3) mg/dL AST (14-36) U/L ALT (0-35) U/L Alkaline Phosphatase (38-126) U/L Serum Total Protein (6.3-8.2) g/dL Albumin (3.5-5.0) g/dL 05/06/21 05/06/21 05/06/21 Range/Units 05:50 06:44 11:21 WBC (4.0-10.5) K/mm3 RBC (4.1-5.4) M/mm3 Hgb (12.0-16.0) gm/dl Hct (35-47) % MCV (78-100) fl MCH (26-32) pg MCHC (32-36) g/dl RDW (11.5-14.0) % Plt Count (150-450) K/mm3 MPV (7.5-11.0) fl Segmented Neutrophils (36.0-66.0) % Lymphocytes (Manual) (24-44) % Monocytes (Manual) (0.0-12.0) % Platelet Estimate (NORMAL) RBC Morphology Sodium 140 (137-145) mmol/L Potassium 3.7 (3.5-5.1) mmol/L Chloride 101 (98-107) mmol/L Carbon Dioxide 29 (22-30) mmol/L Anion Gap 13.0 (5-15) MEQ/L BUN 16 (7-17) mg/dL Creatinine 0.56 (0.52-1.04) mg/dL Estimated GFR > 60.0 ML/MIN Glucose 184 H (74-106) mg/dL POC Glucometer 173 H 237 H (74 to 106) mg/dL Calcium 9.1 (8.4-10.2) mg/dL Total Bilirubin < 0.10 L (0.2-1.3) mg/dL AST 28 (14-36) U/L ALT 60 H (0-35) U/L Alkaline Phosphatase 81 (38-126) U/L Serum Total Protein 6.6 (6.3-8.2) g/dL Albumin 3.7 (3.5-5.0) g/dL Radiology Exams: Radiology Procedures Category Date Time Status CHEST 1 VIEW (PORTABLE) Routine Exams 05/05/21 08:48 Completed
[2021-05-06] MEDS: HALDOL 1 MG PO SCH (19:50)
[2021-05-07] MEDS: Ativan 2 MG/1 ML VIAL IV PRN ×6 (01:55→21:35)
[2021-05-07] MEDS: DUONEB 0.5-3 MG/3 ml Neb IH SCH ×6 (02:43→22:27)
[2021-05-07] MEDS: solu-MEDROL 60 MG, Sterile H2O 10 ml 2 ML IV SCH ×2 (05:29)
[2021-05-07] MEDS: Zosyn 3.375 GM Vial 3.375 GM in Sodium Chloride 100ML MINI-BAG PLUS 100 ML IV SCH ×4 (05:29→23:42)
[2021-05-07 06:23] LABS: Hematocrit 43.5 % (35-47); Mean Cell Volume 86.1 fl (78-100); Mean Corpuscular Hemoglobin 25.7 pg (26-32); Mean Corpuscular Hgb Concent. 29.9 g/dl (32-36); Mean Platelet Volume 8.9 fl (7.5-11.0); Platelet Count 431 K/mm3 (150-450); Red Blood Count 5.05 M/mm3 (4.1-5.4); Red Cell Distribution Width 18.7 % (11.5-14.0); White Blood Count 22.8 K/mm3 (4.0-10.5)
[2021-05-07 07:04] LABS: Lymphocytes 8 % (24-44); Monocyte 3 % (0.0-12.0); Neutrophils 89 % (36.0-66.0); Platelet Estimate NORMAL (NORMAL); Total Cells Counted 100
[2021-05-07] MEDS ORDERED: Ativan 2 MG/1 ML VIAL IM ONE (10:55)
[2021-05-07] MEDS: ENOXAPARIN SODIUM SQ SCH (11:10)
[2021-05-07] MEDS: COGENTIN 0.5 MG PO SCH (11:11)
[2021-05-07] MEDS: NICODERM CQ 14 MG TOP SCH (11:13)
[2021-05-07] MEDS: PATIENT OWN MEDICATION PO SCH (11:13)
[2021-05-07] MEDS: PROTONIX 40 MG IV IV SCH (12:35)
[2021-05-07] MEDS: solu-MEDROL 40 MG IV SCH ×2 (12:36→21:31)
[2021-05-07] MEDS: Advair Hfa 230/21 Mcg COMMON CANISTER IH SCH (19:01)
[2021-05-07] MEDS: ELIQUIS 2.5 MG TABLET PO SCH (21:31)
[2021-05-07] MEDS: HALDOL 1 MG PO SCH (21:31)
[2021-05-07] MEDS: HUMALOG SQ PRN (21:32)
--- NOTE | 2021-05-07 22:50 | PCM.NOTE ---
Date and Time: 05/07/212240 Subjective Assessment: Patient had a rough day today was thinking about leaving the hospital cursing and not cooperative. See nursing notes regarding detail. Her mother came and patient calmed down. Dr Mcdowell consulted this afternoon.Oxygen at 4 L. Objective Exam General Appearance: moderate distress (has calmed down after Ativan and ate ,is resting.) Neurologic Exam: oriented x 3 Skin Exam: warm, dry, other (flushed) Respiratory Exam: accessory muscle use, other (tight inspiration and expiration) Cardiovascular Exam: regular rate/rhythm, pulse deficit Extremity Exam: other (tender right inguinal upper thigh,no redness or heat) OBJECTIVE DATA Vital Signs: Vital Signs - 24 hr Temp Pulse Resp BP BP Pulse Ox 05/07/21 19:52 98.5 F 87 36 H 167/83 95 05/07/21 19:00 86 36 H 95 05/07/21 16:00 97.6 F 104 H 24 186/112 92 L 05/07/21 14:55 97 H 30 H 95 05/07/21 11:58 97.6 F 88 24 154/84 95 05/07/21 11:19 81 28 H 93 L 05/07/21 08:00 98.0 F 85 24 159/86 94 L 05/07/21 06:42 78 24 95 05/07/21 04:00 97.9 F 83 26 H 170/94 93 L 05/07/21 02:43 83 26 H 93 L 05/06/21 23:47 97.2 F 88 28 H 165/88 90 L 05/06/21 22:53 88 28 H 90 L Pain Assessment - Last Documented Pain Intensity 0 Intake and Output: Intake & Output 05/05/21 05/06/21 05/07/21 05/08/21 11:59 11:59 11:59 11:59 Intake Total 3220 1686 1525 360 Output Total 900 Balance 3220 1686 625 360 Weight 135.8 kg 136.6 kg Lab Results: Lab Results-Last 24 Hours 05/07/21 05/07/21 05/07/21 Range/Units 05:45 07:03 11:35 WBC 22.8 H (4.0-10.5) K/mm3 RBC 5.05 (4.1-5.4) M/mm3 Hgb 13.0 (12.0-16.0) gm/dl Hct 43.5 (35-47) % MCV 86.1 (78-100) fl MCH 25.7 L (26-32) pg MCHC 29.9 L (32-36) g/dl RDW 18.7 H (11.5-14.0) % Plt Count 431 (150-450) K/mm3 MPV 8.9 (7.5-11.0) fl Segmented Neutrophils 89 H (36.0-66.0) % Lymphocytes (Manual) 8 L (24-44) % Monocytes (Manual) 3 (0.0-12.0) % Platelet Estimate NORMAL (NORMAL) RBC Morphology NORMAL POC Glucometer 149 H 237 H (74 to 106) mg/dL 05/07/21 05/07/21 Range/Units 16:08 20:40 WBC (4.0-10.5) K/mm3 RBC (4.1-5.4) M/mm3 Hgb (12.0-16.0) gm/dl Hct (35-47) % MCV (78-100) fl MCH (26-32) pg MCHC (32-36) g/dl RDW (11.5-14.0) % Plt Count (150-450) K/mm3 MPV (7.5-11.0) fl Segmented Neutrophils (36.0-66.0) % Lymphocytes (Manual) (24-44) % Monocytes (Manual) (0.0-12.0) % Platelet Estimate (NORMAL) RBC Morphology POC Glucometer 198 H 215 H (74 to 106) mg/dL Assessment/Plan (1) Hypoxia Current Visit: Yes Status: Acute Code(s): R09.02 - HYPOXEMIA (2) Pneumonitis Current Visit: Yes Status: Acute Assessment & Plan: per Dr Mcdowell Code(s): J18.9 - PNEUMONIA, UNSPECIFIED ORGANISM (3) Bipolar 1 disorder Current Visit: Yes Status: Chronic Code(s): F31.9 - BIPOLAR DISORDER, UNSPECIFIED (4) Panic Current Visit: Yes Status: Acute Code(s): F41.0 - PANIC DISORDER [EPISODIC PAROXYSMAL ANXIETY] (5) DVT (deep vein thrombosis) in Current Visit: Yes Status: Acute Assessment & Plan: stop Lovenox,start Eliquis 10 mg Code(s): O22.30 - DEEP PHLEBOTHROMBOSIS IN , UNSPECIFIED TRIMESTER
[2021-05-08] MEDS: Ativan 2 MG/1 ML VIAL IV PRN ×3 (01:08→09:05)
[2021-05-08] MEDS: DUONEB 0.5-3 MG/3 ml Neb IH SCH ×2 (02:22→06:40)
[2021-05-08] MEDS: solu-MEDROL 40 MG IV SCH (05:33)
[2021-05-08] MEDS: Zosyn 3.375 GM Vial 3.375 GM in Sodium Chloride 100ML MINI-BAG PLUS 100 ML IV SCH (05:33)
[2021-05-08 05:55] LABS: Hematocrit 45.2 % (35-47); Hemoglobin 13.7 gm/dl (12.0-16.0); Mean Cell Volume 84.6 fl (78-100); Mean Corpuscular Hemoglobin 25.7 pg (26-32); Mean Corpuscular Hgb Concent. 30.3 g/dl (32-36); Platelet Count 477 K/mm3 (150-450); Red Blood Count 5.34 M/mm3 (4.1-5.4); Red Cell Distribution Width 18.5 % (11.5-14.0)
[2021-05-08 05:56] LABS: ALBUMIN 3.7 g/dL (3.5-5.0); ALKALINE PHOSPHATASE 72 U/L (38-126); ANION GAP 14.3 MEQ/L (5-15); BILIRUBIN,TOTAL < 0.10 mg/dL (0.2-1.3); BLOOD UREA NITROGEN 14 mg/dL (7-17); CHLORIDE 98 mmol/L (98-107); Calcium 8.9 mg/dL (8.4-10.2); Carbon Dioxide 30 mmol/L (22-30); Creatinine 1 0.51 mg/dL (0.52-1.04); EST GLOMERULAR FILTRATION RATE > 60.0 ML/MIN; Glucose 174 mg/dL (74-106); Potassium 3.4 mmol/L (3.5-5.1); SGOT/AST 31 U/L (14-36); SGPT/ALT 53 U/L (0-35); SODIUM 139 mmol/L (137-145); Total Protein 6.5 g/dL (6.3-8.2)
[2021-05-08 05:57] LABS: White Blood Count 25.8 K/mm3 (4.0-10.5)
[2021-05-08] MEDS: Advair Hfa 230/21 Mcg COMMON CANISTER IH SCH (06:40)
[2021-05-08 06:52] VITALS: O2SAT 95
[2021-05-08 07:07] LABS: BAND 2 % (0.0-2.0); Lymphocytes 9 % (24-44); Monocyte 2 % (0.0-12.0); Neutrophils 87 % (36.0-66.0); Total Cells Counted 100; Toxic Granulation 1+
[2021-05-08 07:08] LABS: ANISOCYTOSIS 1+; Platelet Estimate NORMAL (NORMAL)
[2021-05-08 07:48] VITALS: BP 153/84; PULSE 88
[2021-05-08] MEDS: PROTONIX 40 MG IV IV SCH (09:05)
[2021-05-08] MEDS: NICODERM CQ 14 MG TOP SCH (09:05)
[2021-05-08] MEDS: COGENTIN 0.5 MG PO SCH (09:06)
[2021-05-08] MEDS: ELIQUIS 2.5 MG TABLET PO SCH (09:07)
[2021-05-08] MEDS: PATIENT OWN MEDICATION PO SCH (09:08)
--- NOTE | 2021-05-08 14:31 | CONS ---
CONSULT DATE: 05/07/2021 REASON FOR CONSULT: Evaluation of shortness of breath. HISTORY: Renea Mendes is a 40 year-old woman with long standing history of pulmonary problems, who was admitted [facility] last week with diagnosis of deep vein thrombosis and possible pulmonary embolism(?). I was asked to see the patient in consultation. At the time that I did stop by to see the patient, she had just signed out AMA. It seems that the patient went home and smoked a cigarette making her symptoms worse leading to another admission to the emergency room. This time she has been continued on full dose anticoagulation for a right lower extremity deep vein thrombosis. CT chest was not confirmatory for pulmonary embolus but did show additional findings of a right upper lobe nodule, "tree-in-bud" appearance, along with some other subtle findings. The patient has been having significant anxiety episodes and was treated with Ativan with some clinical improvement. At the time of my evaluation, she is awake, able to answer questions. She does report feeling "some better". Her effort tolerance has been moderately reduced. She was diagnosed with chronic obstructive pulmonary disease about two years ago. The patient reportedly was on Breo but was unable to get this done due to COVID for some reason. She has continued herself on inhaled bronchodilators and also uses nebulizer as needed. Her effort tolerance has been moderately reduced. The patient mcdaniels have sleep apnea but apparently never used CPAP. She does use oxygen at night and states that the cylinder does not belong to her but belonged to her step-father who . PAST MEDICAL HISTORY: Besides pulmonary problems she has history of bipolar disorder. PAST SURGICAL HISTORY: No recent surgeries. PERSONAL AND SOCIAL HISTORY: The patient smokes about a pack of cigarettes per day. She lives with her mother. MEDICATIONS: Medications are reviewed. ALLERGIES: NKDA. PHYSICAL EXAMINATION: This is a middle aged woman who appears calm, able to carry out a good conversation, mildly short of breath. Vital signs noted. Currently on oxygen at 40%. HEENT: Normocephalic. Oral exam is limited. NECK: Supple. CVS: First and second heart sounds are normal, regular, rhythmic. RESPIRATORY: Shows diminished breath sounds bilateral, fairly diffuse rhonchi heard. ABDOMEN: Obese. EXTREMITIES: No significant edema noted. LABORATORY DATA AND TESTS: I have personally reviewed the CT chest. White count 22.8, hemoglobin 13, hematocrit 43, PLT 431,000. Sodium 140, potassium 3.7, chloride 101, bicarb 29, glucose 184, BUN 16, creatinine 0.5. ASSESSMENT: This is a 40 year old woman with: 1) Long standing history of pulmonary problems admitted with shortness of breath which clearly appears multifactorial. The patient currently has chronic obstructive pulmonary disease exacerbation and is being treated for the same. 2) Right lower extremity superficial femoral vein deep vein thrombosis, pulmonary embolism (?) apparently the previous read did show pulmonary embolism but current CT scan results commented timing of contrast there is no obvious central clot seen. 3) Right upper lobe nodule. This appears smooth and contrast enhanced (?) granuloma versus AVM. 4) Tree-in-bud appearance very subtle will require follow up possibly with follow up CT in three months without contrast. 5) Chronic obstructive pulmonary disease with exacerbation. 6) Sleep apnea, noncompliant with therapy. 7) Hypoxemia. 8) Bipolar disorder. 9) Hyperglycemia with normal A1C likely from steroid therapy. RECOMMENDATIONS: 1) I explained to patient the seriousness of her health problems at least at this point if she agrees to inpatient care. 2) Agree with IV steroids with taper. 3) Continue bronchodilators. 4) The patient would like to restart Breo however the pharmacy substitution with Advair is acceptable. 5) Will change Lovenox to Eliquis for dose 10 mg b.i.d. for seven days followed by 5 mg t.i.d. Advised the patient that she needs to take this regularly without interruption for at least four to six months, which a repeat Doppler can be performed to ascertain resolution of clot. The patient does not have obvious risk factors that may require hypercoag work up thereafter. 6) Need for smoking cessation would be ideal. However given the patient's psychiatric history this may be difficult. 7) Further recommendations awaiting clinical improvement. Discussed the plan of care with patient as well as personally with Dr. Navarro. I will follow the patient during her stay and in outpatient setting.
[2021-05-14] MEDS ORDERED: ELIQUIS 2.5 MG TABLET PO SCH (10:00)
== END 2021-05-08 10:38 | disposition left against medical advice (07) | DRG 190 ==
LOC: ED 18:52 → MED SURG 22:33 → OBSVTOIN 05-05 06:25
PROVIDERS: ADMIT Family Medicine; ATTEND Family Medicine
DX: J44.1 Chronic obstructive pulmonary disease with (acute) exacerbation (principal); J18.9 Pneumonia, unspecified organism; I26.99 Other pulmonary embolism without acute cor pulmonale; Z79.899 Other long term (current) drug therapy; F31.9 Bipolar disorder, unspecified; R09.02 Hypoxemia; G47.30 Sleep apnea, unspecified; R73.9 Hyperglycemia, unspecified; F41.9 Anxiety disorder, unspecified; F41.0 Panic disorder [episodic paroxysmal anxiety]
CPT/HCPCS: 36415; 71045; 80048; 80053; 80307; 82947; 83036; 83880; 84484; 85025; 89220; 93005; 93041; 94640; 94667; 94668; 94760; 94762; 96365; 96367; 96374; 99285; 99291; J0456; J0696; J1650; J1817; J2060; J2405; J2920; J2930; A9270-GY; G0378

== ENCOUNTER 2022-01-16 11:42 | Emergency (ER) | payer OTHER ==
--- NOTE | 2022-01-16 12:20 | ERPHSYRPT ---
- History of Present Illness Time Seen by Provider: 01/16/22 12:00 Source: patient Exam Limitations: no limitations Patient Subjective Stated Complaint: Pt states "My legs are hurting so bad that I cannot take it anymore. I went to the Dr. and they said it is because I am big, but this is just horrible. My left hurts worse than my right. Last time I was here I have a PE and I hope I do not have a clot." Triage Nursing Assessment: Pt presented alert and oriented X 3, skin pwd. Pt ambulates slow wide gait, able to speak in clear full sentences. PT resting comfortably on the bed. Physician History: Patient is a 41-year-old female presents to emergency department for evaluation of bilateral upper thigh pain. Patient followed up with her primary care doctor regarding this pain and she was diagnosed with radiculopathy. She was told the pain is originating in her back. Patient has a history of peripheral neuropathy on gabapentin. Patient's pain described as an ache that is mostly in the flexor crease of the left hip. She also has some pain in the right flexor crease but it is not as intense as the left. No lower extremity weakness. No numbness tingling. No chest pain or shortness of breath. No back pain. No recent back procedures. No saddle anesthesia. No change in bowel bladder function. Symptoms have been ongoing for the past several days. No trauma. Patient voices no other complaints or concerns at this time. Severity: moderate Modifying Factors: Improves With: nothing Associated Symptoms: denies symptoms Allergies/Adverse Reactions: No Known Drug Allergies Allergy (Verified 05/03/21 23:10) Home Medications: Albuterol Sulfate [Ventolin Hfa] 18 gm IN UD 01/21/18 [History] Aripiprazole Lauroxil [Aristada] 882 mg IM UD 01/21/18 [History] Benztropine Mesylate 1 mg PO DAILY 01/21/18 [History] Cariprazine HCl [Vraylar] 6 mg PO DAILY 05/01/21 [History] Divalproex Sodium [Divalproex Sodium ER] 500 mg PO DAILY 01/16/22 [History] Gabapentin 600 mg PO TID 01/16/22 [History] Lorazepam 1 mg [Ativan 1 MG] 1 mg PO BID 01/16/22 [History] Triamterene/Hydrochlorothiazid [Maxzide 37.5 mg-25 mg Tablet] 1 each PO DAILY 01/16/22 [History] Hx Tetanus, Diphtheria Vaccination/Date Given: No Hx Influenza Vaccination/Date Given: No Hx Pneumococcal Vaccination/Date Given: No Immunizations Up to Date: Yes Travel Risk - International Travel Have you traveled outside of the country in past 3 weeks: No - Coronavirus Screening Are you exhibiting any of the following symptoms?: No Close contact with a COVID-19 positive Pt in past 14-21 Days: No - Vaccine Status Have you recieved a Covid-19 vaccination: Yes [employer]: [employer] - Vaccination Dates Date of 2cond Vaccination (if applicable): 08/2021 - Review of Systems Constitutional: No Symptoms, No Fever, No Chills Eyes: No Symptoms Ears, Nose, & Throat: No Symptoms Respiratory: No Symptoms, No Cough, No Dyspnea Cardiac: No Symptoms, No Chest Pain, No Edema, No Syncope Abdominal/Gastrointestinal: No Symptoms, No Abdominal Pain, No Nausea, No Vomiting, No Diarrhea Genitourinary Symptoms: No Symptoms, No Dysuria Musculoskeletal: No Symptoms, No Back Pain, No Neck Pain Skin: No Symptoms, No Rash Neurological: No Symptoms, No Dizziness, No Focal Weakness, No Sensory Changes Psychological: No Symptoms Endocrine: No Symptoms Hematologic/Lymphatic: No Symptoms Immunological/Allergic: No Symptoms All Other Systems: Reviewed and Negative - Past Medical History Pertinent Past Medical History: Yes Neurological History: Other ENT History: No Pertinent History Cardiac History: High Cholesterol Respiratory History: Asthma, Pneumonia, Pulmonary Embolism Endocrine Medical History: No Pertinent History Musculoskeletal History: No Pertinent History GI Medical History: No Pertinent History History: No Pertinent History Psycho-Social History: Anxiety, Depression, Other Female Reproductive Disorders: No Pertinent History Other Medical History: BORDERLINE PERSONALITY DISORDER, SCHIZOPHRENIA, HEAD TRAUMA, neuropathy in feet, BIPOLAR DISORDER - Past Surgical History Past Surgical History: Yes Cardiac: No Pertinent History Respiratory: No Pertinent History Gastrointestinal: Cholecystectomy Genitourinary: No Pertinent History Musculoskeletal: No Pertinent History Female Surgical History: Tubal Ligation Other Surgical History: dental extration - Social History Smoking Status: Current every day smoker How long have you smoked: years Exposure to second hand smoke: Yes Drug Use: none Patient Lives Alone: No - Female History Hx Last Menstrual Period: 12/10/2021 Hx Now: No - Nursing Vital Signs Nursing Vital Signs: Initial Vital Signs Temperature 97.8 F 01/16/22 11:55 Pulse Rate 94 H 01/16/22 11:55 Respiratory Rate 28 H 01/16/22 11:55 Blood Pressure 161/116 01/16/22 11:55 O2 Sat by Pulse Oximetry 97 01/16/22 11:55 Pain Scale Pain Intensity 5 - Physical Exam General Appearance: no apparent distress, alert Eye Exam: PERRL/EOMI, eyes nml inspection Ears, Nose, Throat Exam: normal ENT inspection, TMs normal, pharynx normal, moist mucous membranes Neck Exam: normal inspection, non-tender, supple, full range of motion Respiratory Exam: normal breath sounds, lungs clear, airway intact, No respiratory distress Cardiovascular Exam: regular rate/rhythm, normal heart sounds, normal peripheral pulses Gastrointestinal/Abdomen Exam: soft, normal bowel sounds, No tenderness, No mass Back Exam: normal inspection, normal range of motion, No CVA tenderness, No vertebral tenderness Extremity Exam: normal inspection, normal range of motion, pelvis stable, other (Bilateral lower extremities neurovascular tact distally. Compartments are soft. Cap refill less than 2 seconds. PT DP pulse palpable and bilaterally equal), No myles's sign (Negative Homans' sign bilateral lower extremity. Patient currently on a blood thinner), No swelling Neurologic Exam: alert, oriented x 3, cooperative, normal mood/affect, nml cerebellar function, nml station & gait, sensation nml, No motor deficits Skin Exam: normal color, warm, dry, No rash Lymphatic Exam: No adenopathy SpO2 Interpretation: normal SpO2: 97 O2 Delivery: Room Air - Course Nursing assessment & vital signs reviewed: Yes - Radiology Exams L-Spine X-ray Interpretation: Teleradiologist Report (CT lumbar spine negative for fracture dislocation.) - CT Exams Abdomen/Pelvis CT Interpretation: Tele-radiologist Report (Infrahilar calcified lymph node. Fatty hepatomegaly, thoracic degenerative arthritis of spine. No hernias. Right lower quadrant noncalcified soft tissue mass) Ordered Tests: Active Orders 24 hr Category Date Time Status ABDOMEN AND PELVIS W/0 CONTRAS [CT] Stat Exams 01/16/22 12:11 Completed RECONSTRUCTION [CT] Routine Exams 01/16/22 00:00 Completed Medication Summary Discontinued Medications Generic Name Dose Route Start Last Admin Trade Name Freq PRN Reason Stop Dose Admin Ketorolac Tromethamine 30 mg 01/16/22 12:23 01/16/22 12:38 Ketorolac Tromethamine 30 Mg/Ml Inj IM 01/16/22 12:24 30 mg STAT ONE Administration Ketorolac Tromethamine Confirm 01/16/22 12:34 Ketorolac Tromethamine 30 Mg/Ml Inj Administered 01/16/22 12:35 Dose 30 mg .ROUTE .STK-MED ONE Lab/Rad Data: Laboratory Results 01/16/22 Range/Units 12:32 Urinalys Dipstick Clnc MAIN LAB Urine Color YELLOW (YELLOW) Urine Appearance CLEAR (CLEAR) Urine pH 7.0 (5-6) Ur Specific [place] 1.015 (1.005-1.025) POC Urine Protein Conf NEGATIVE (Negative) Urine Ketones NEGATIVE (NEGATIVE) Urine Nitrite NEGATIVE (NEGATIVE) Urine Bilirubin NEGATIVE (NEGATIVE) Urine Urobilinogen 0.2 (0-1) mg/dL Urine Leukocytes NEGATIVE (NEGATIVE) Urine WBC (Auto) NONE (0-5) /HPF Urine RBC (Auto) NONE (0-2) /HPF U Epithel Cells (Auto) RARE (FEW) /HPF Urine Bacteria (Auto) NONE (NEGATIVE) /HPF Urine RBC NEGATIVE (0-5) Figueroa/ul Ur Culture Indicated? NO Urine Glucose NEGATIVE (NEGATIVE) mg/dL - Progress Progress: improved Progress Note: Patient reassessed. She feels well. Patient ambulatory. Patient has minimal discomfort at this time. CT abdomen pelvis reveals a right lower quadrant noncalcified mass will to need further evaluation. Infrahilar calcified lymph nodes with a fatty hepatomegaly. CT lumbar spine essentially nonremarkable. Will discharge home. No indication for further work-up at this time. Urinalysis negative. Patient agrees to follow-up with her primary care doctor within 48 hours for reevaluation. Portions of this note were created with voice recognition technology. There may be grammatical, spelling, punctuation or sound alike errors 01/16/22 15:02 Counseled pt/family regarding: lab results, diagnosis, need for follow-up, rad results - Departure Departure Disposition: Home Clinical Impression: Right lower quadrant soft tissue mass, Fatty hepatomegaly, Degenerative a rthritis of thoracic spine Condition: Stable Critical Care Time: No Referrals: EZE REYES [Primary Care Provider] - Follow up/PCP as directed JOHAN YEN [ACTIVE STAFF] - Follow up/PCP as directed Additional Instructions: Right lower extremity mass observed on your CAT scan. Please follow-up with your primary care doctor or general surgery within 48 hours for reevaluation. Discharge/Care Plan YUE NAM was seen on 01/16/22 in the Emergency Room. The patient was counseled regarding Diagnosis,Lab results, Imaging studies, need for follow up and when to return to the Emergency Room. Prescriptions given: Discharge Note I have spoken with the patient and/or caregivers. I have explained the patient's condition, diagnosis and treatment plan based on the information available to me at this time. I have answered the patient's and/or caregiver's questions and addressed any concerns. The patient and/or caregivers have as good understanding of the patient's diagnosis, condition and treatment plan as can be expected at this point. The vital signs have been stable. The patient's condition is stable and appropriate for discharge from the emergency department. The patient will pursue further outpatient evaluation with the primary care physician or other designated or consulting physician as outlined in the discharge instructions. The patient and/or caregivers are agreeable to this plan of care and follow-up instructions have been explained in detail. The patient and/or caregivers have received these instruction. The patient/and or caregivers are aware that any significant change in condition or worsening of symptoms should prompt an immediate return to this or the closest emergency department or call 911.
[2022-01-16] MEDS ORDERED: TORAdol 30 mg Injection ONE (12:34)
[2022-01-16] MEDS: TORAdol 30 mg Injection IM ONE (12:38)
[2022-01-16 12:42] LABS: Appearance CLEAR (CLEAR); Bilirubin NEGATIVE (NEGATIVE); Dipstick done @ ? MAIN LAB; Glucose NEGATIVE (NEGATIVE); Ketones NEGATIVE (NEGATIVE); Nitrite NEGATIVE (NEGATIVE); Protein,Urine Dip NEGATIVE (Negative); RBC NEGATIVE Ery/ul (0-5); Specific Gravity 1.015 (1.005-1.025); Urobilinogen 0.2 mg/dL (0-1)
[2022-01-16 12:55] LABS: Epithelial Cells RARE /HPF (FEW)
[2022-01-16 13:15] LABS: Urine Cultured Indicated? NO
--- NOTE | 2022-01-16 13:33 | XRAY ---
Indication: Pain in both legs. Hernia. Multiple contiguous axial images obtained through the abdomen and pelvis without contrast. Comparison: June 04, 2017. Lung bases clear again with incidental right infrahilar calcified nodes. Heart not enlarged. Noncontrasted stomach and bowel loops nonobstructed. Appendix not visualized. Interval cholecystectomy. No free fluid/air. Again fatty hepatomegaly today measuring 28.7 cm. Remaining liver, pancreas, spleen, adrenal glands, kidneys, ureters, bladder, uterus, and aorta are unremarkable for noncontrast exam. Osseous structures intact with minimal lower thoracic degenerative vacuum disc phenomena. No ventral or inguinal hernias. Right lower quadrant abdominal wall demonstrates new 2.7 x 4.2 x 2.2 cm well-circumscribed subcutaneous heterogeneous noncalcified soft tissue mass, possibly iatrogenic. Impression: 1. New right lower quadrant subcutaneous abdominal wall mass, possibly iatrogenic. 2. Again fatty hepatomegaly and right infrahilar calcified nodes. 3. Remaining CT abdomen/pelvis without contrast exam is negative.
--- NOTE | 2022-01-16 13:35 | XRAY ---
Indication: Pain. Axial, coronal, and sagittal reformatted images of the lumbar spine obtained using raw data from CT abdomen/pelvis study of the same day. Comparison: June 04, 2017 Again 4 lumbar segments with sacralized L5. No acute fracture, suspicious bony lesions, or spinal canal stenosis. Facets are symmetric. Sagittal and coronal reformatted images emesis normal alignment with vertebral body heights/disc spaces maintained. CT abdomen/pelvis reported separately. Impression: Continued negative CT lumbar spine.
[2022-01-16 15:27] VITALS: BP 142/98; PULSE 88; O2SAT 98
== END 2022-01-16 15:32 | disposition home or self-care (01) ==
LOC: ED 11:42
DX: R19.03 Right lower quadrant abdominal swelling, mass and lump (principal); K76.0 Fatty (change of) liver, not elsewhere classified; M47.814 Spondylosis without myelopathy or radiculopathy, thoracic region; M79.652 Pain in left thigh; M79.651 Pain in right thigh; E78.5 Hyperlipidemia, unspecified; G62.9 Polyneuropathy, unspecified; Z72.0 Tobacco use; Z79.899 Other long term (current) drug therapy
CPT/HCPCS: 74176; 76376; 81015; 96372; 99284; J1885